=== PATIENT | male | born 1950 | race Caucasian/White ===

== ENCOUNTER → 2018-08-26 07:52 | Outpatient (CLI) | payer MEDICARE, OTHER, SELFPAY ==
[2018-08-26 08:56] LABS: Alanine Aminotransferase 30 IU/L (21-72); Albumin 4.4 g/dL (3.5-5.0); Albumin Globulin Ratio 1.2 (1.0-2.8); Alkaline Phosphatase 77 U/L (38-126); Aspartate Aminotransferase 28 IU/L (17-59); Bilirubin Total 0.8 mg/dL (0.2-1.3); Blood Urea Nitrogen 16 mg/dL (9-20); Carbon Dioxide 26 mmol/L (22-32); Chloride 105 mmol/L (98-107); Cholesterol 169 mg/dL (140-199); Estimated Glomerular Filt Rate > 60.0 mL/min (>60); Globulin 3.8 g/dL (1.7-4.1); Glucose 107 mg/dL (80-110); HDL Cholesterol 49 mg/dL (40-60); HEMOLYSIS < 15 (0-50); LDL Cholesterol Calculated 85 mg/dL (<100); Potassium 4.2 mmol/L (3.4-5.1); Sodium 142 mmol/L (137-145); Total Protein 8.2 g/dL (6.3-8.2); Triglycerides 177 mg/dL (35-150)
== END ==
PROVIDERS: Visit Provider Internal Medicine
DX: Z00.00 Encounter for general adult medical examination without abnormal findings (principal)
CPT/HCPCS: 80053; 80061

== ENCOUNTER → 2018-12-25 09:09 | Outpatient (CLI) | payer MEDICARE, OTHER, SELFPAY ==
--- NOTE | 2018-12-25 09:11 | DI.US.S_ITS ---
PROCEDURE: US ABD AORTA ANEURYSM SCREEN INDICATIONS: AAA screen in male former smoker TECHNIQUE: Real time scanning was performed of the aorta and iliac arteries, with image documentation. COMPARISON: None. FINDINGS: Aorta: Proximal aortic diameter measures 2.5 cm. Mid-aorta measures 1.9 cm. Distal aortic diameter is 1.6 cm. Iliac arteries: Right common iliac artery measures 1.1 cm. Left common iliac artery measures 1.1 cm. IMPRESSION: No aortic or iliac artery aneurysm. Dictated by: Arturo Schultz M.D. on 12/25/2018 at 10:05 Approved by: Arturo Schultz M.D. on 12/25/2018 at 10:06
== END ==
PROVIDERS: PCP Student in an Organized Health Care Education/Training Program; Visit Provider Student in an Organized Health Care Education/Training Program
DX: Z13.6 Encounter for screening for cardiovascular disorders (principal); Z87.891 Personal history of nicotine dependence
CPT/HCPCS: 76706

== ENCOUNTER → 2019-08-22 12:44 | Outpatient (CLI) | payer MEDICARE, OTHER, SELFPAY ==
[2019-08-22 13:36] LABS: BUN Creatinine Ratio 23.8 (6-22); Blood Urea Nitrogen 19 mg/dL (9-20); Carbon Dioxide 24 mmol/L (22-32); Chloride 104 mmol/L (98-107); Estimated Glomerular Filt Rate > 60.0 mL/min (>60); Glucose 133 mg/dL (80-110); HEMOLYSIS < 15 (0-50); Sodium 140 mmol/L (137-145)
== END ==
PROVIDERS: PCP Student in an Organized Health Care Education/Training Program; Visit Provider Student in an Organized Health Care Education/Training Program
DX: I10 Essential (primary) hypertension (principal)
CPT/HCPCS: 36415; 80048

== ENCOUNTER → 2019-11-07 16:25 | Outpatient (CLI) | payer MEDICARE, OTHER, SELFPAY ==
--- NOTE | 2019-11-07 16:27 | DI.RAD.S_ITS ---
PROCEDURE: XR CHEST 2V INDICATIONS: chronic cough, abnormal sounds L upper lung glover TECHNIQUE: 2 views of the chest were acquired. COMPARISON: None. FINDINGS: Surgical changes and devices: None. Lungs and pleura: No focal consolidation. There is a small nodular opacity projecting over the left lung base measuring up to approximately 1.2 cm. No pleural effusions or pneumothorax. Mediastinum: Mediastinal contours are normal. Heart size is normal. Bones and chest wall: No suspicious bony abnormalities. Soft tissues appear unremarkable. IMPRESSION: 1. No focal consolidation to suggest pneumonia. 2. Oval opacity projecting over left lung base may represent confluence of vascular and bony structures versus a pulmonary nodule. Consider a short term followup repeat study for further evaluation. Dictated by: Reinaldo Wagner M.D. on 11/07/2019 at 16:50 Approved by: Reinaldo Wagner M.D. on 11/07/2019 at 16:52
== END ==
PROVIDERS: Family Provider Student in an Organized Health Care Education/Training Program; PCP Student in an Organized Health Care Education/Training Program; Visit Provider Physician Assistant
DX: R05 Cough (principal)
CPT/HCPCS: 71046

== ENCOUNTER → 2019-11-11 15:43 | Outpatient (CLI) | payer MEDICARE, OTHER, SELFPAY ==
--- NOTE | 2019-11-11 15:46 | DI.RAD.S_ITS ---
PROCEDURE: XR CHEST 2V INDICATIONS: Re-evaluate ?pulmonary nodule in LLL TECHNIQUE: 2 views of the chest were acquired. COMPARISON: [facility], CR, XR CHEST 2V, 11/07/2019, 16:22. FINDINGS: Surgical changes and devices: None. Lungs and pleura: Lungs are clear. No pleural effusions or pneumothorax. Mediastinum: Mediastinal contours are normal. Heart size is normal. Bones and chest wall: No suspicious bony abnormalities. Soft tissues appear unremarkable. IMPRESSION: Normal for age, no nodules seen in the area of prior film concern at the left ventricular apex margin, abutting the diaphragm. The area now is well-visualized and appears normal. Dictated by: Arturo Schultz M.D. on 11/11/2019 at 16:20 Approved by: Arturo Schultz M.D. on 11/11/2019 at 16:21
== END ==
PROVIDERS: PCP Student in an Organized Health Care Education/Training Program; Visit Provider Student in an Organized Health Care Education/Training Program
DX: R91.1 Solitary pulmonary nodule (principal)
CPT/HCPCS: 71046

== ENCOUNTER → 2020-11-07 08:08 | Outpatient (CLI) | payer MEDICARE, OTHER, SELFPAY ==
[2020-11-07 10:10] LABS: Alanine Aminotransferase 30 IU/L (<50); Albumin 4.4 g/dL (3.5-5.0); Albumin Globulin Ratio 1.3 (1.0-2.8); Alkaline Phosphatase 83 U/L (38-126); Aspartate Aminotransferase 36 IU/L (17-59); BUN Creatinine Ratio 18.1 (6-22); Bilirubin Total 0.6 mg/dL (0.2-1.3); Blood Urea Nitrogen 15 mg/dL (9-20); Carbon Dioxide 27 mmol/L (22-32); Chloride 105 mmol/L (98-107); Cholesterol 176 mg/dL (140-199); Estimated Glomerular Filt Rate > 60.0 mL/min (>60); Globulin 3.5 g/dL (1.7-4.1); Glucose 107 mg/dL (80-110); HDL Cholesterol 59 mg/dL (40-60); HEMOLYSIS < 15 (0-50); LDL Cholesterol Calculated 97 mg/dL (<100); Potassium 4.3 mmol/L (3.4-5.1); Sodium 138 mmol/L (137-145); Total Protein 7.9 g/dL (6.3-8.2); Triglycerides 100 mg/dL (35-150)
[2020-11-11 15:27] LABS: Prostate Specific Antigen Scrn 1.12 ng/mL (0.1-4.0)
== END ==
PROVIDERS: PCP Student in an Organized Health Care Education/Training Program; Referring Provider Student in an Organized Health Care Education/Training Program; Visit Provider Nurse Practitioner
DX: E78.2 Mixed hyperlipidemia (principal); I10 Essential (primary) hypertension; Z12.5 Encounter for screening for malignant neoplasm of prostate
CPT/HCPCS: 36415; 80053; 80061; G0103

== ENCOUNTER → 2020-12-28 12:46 | Outpatient (CLI) | payer MEDICARE, OTHER, SELFPAY ==
[2020-12-28] MEDS: COVID-19 VACC #1, MRNA(MOD) 100 MCG/0.5 ML VIAL IM (12:51)
== END ==
PROVIDERS: PCP Student in an Organized Health Care Education/Training Program; Visit Provider Internal Medicine
DX: Z23 Encounter for immunization (principal)
CPT/HCPCS: 0011A; 91301

== ENCOUNTER → 2021-01-25 11:15 | Outpatient (CLI) | payer MEDICARE, OTHER, SELFPAY ==
[2021-01-25] MEDS: COVID-19 VACC #2, MRNA(MOD) 100 MCG/0.5 ML VIAL IM (11:22)
== END ==
PROVIDERS: PCP Student in an Organized Health Care Education/Training Program; Visit Provider Internal Medicine
DX: Z23 Encounter for immunization (principal)
CPT/HCPCS: 0012A; 91301

== ENCOUNTER 2021-05-10 14:30 | Outpatient (RCR) | payer MEDICARE, OTHER, SELFPAY ==
--- NOTE | 2021-03-01 16:03 | PT.OIE ---
Current Diagnoses Other chronic pain (03/01/21) Pain in left shoulder (03/01/21) Dorsalgia, unspecified (03/01/21) Past Medical History (Last Updated 08/18/18 @ 15:07 by Tory Sebastian) Asthma (2004) Chicken pox (1956) Chronic back pain (1979) Hayfever (2004) Hyperlipidemia Measles (1960) Mumps (1957) Past Surgical History (Last Updated 08/18/18 @ 15:07 by Tory Sebastian) Anesthesia No history of previous surgery (06/2015) Visit Care Team Role Provider Type Chito Benítez MD Attending Provider Physician Family Provider Primary Care Provider Referring Provider Specialty: Internal Medicine Address: [address] [place] [address], [address], [facility] Email: [email or web address] Physical Therapy Initial Evaluation PT-OP-A Visit Information Start: 02/28/21 12:52 Freq: Status: Active Protocol: Document 03/01/21 12:56 MB (Rec: 03/01/21 13:16 MB [id number]) Out-Patient Physical Therapy Visit Information Visit Information Visit Type Initial Evaluation Visit Start Time 12:56 Visit Stop Time 13:36 Total Visit Minutes 40 Visit Number 1 Evaluation Information Evaluation Date 03/01/21 PT-OP-B Current Condition Start: 02/28/21 12:52 Freq: Status: Active Protocol: Document 03/01/21 12:56 MB (Rec: 03/01/21 13:16 MB [id number]) Current Condition History of Current Condition Onset Date 2 weeks ago on chronic Current Complaints Low back pain and left shoulder pain History of Current Condition A couple of weeks ago, pt was hiking and slipped and fell on his back on the rocks and flipped and landed on his hands. The pain got bad that night and he took ibuprofen and it helped. 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 Pt reports pain in his right SI area and anterior right hip with walking. Pt reports left shoulder and hand pain. He does not rate pain. Pt reports a history of radiating thumb pain to his neck. Pt gets up to 5/10. Pt likes to do his stretching exercises about half an hour every morning. He starts on a ball. He does pect stretches and crunches on the ball. He does a bug core exercise on the floor with his head up. He does lumbar rotation with leg crossed over, ball squeeze with feet apart, bridging, Cobra, prone quad stretch, folded leaf/Child's Pose, cat/ cow, kneeling with arms out pushes, superman in kneeling, 30-40 sit ups, feet on wall relaxed pose and some other poses. He also likes to walk 2 -3 miles a day. Pt reports a long history of back pain since he was very young. He got injured when a back hoe swung and hit him in the low back. He was lifting a steel piece when it happened. Prior Treatments and Tests Pt saw another PT for years for back pain Treatment Goals Patient/Caregiver Goals To review his home program, keep his hip and shoulders lose, revise a program to keep his HEP 30 minutes or less, stretch calves and decrese pain PT-OP-C Subjective Start: 02/28/21 12:52 Freq: Status: Active Protocol: Document 03/01/21 12:56 MB (Rec: 03/01/21 13:44 MB [id number]) OP-PT Subjective Patient Comments Patient Comments See history of current condition Patient Reported Progress Improving Patient Questionnaires Oswestry Low Back Index Oswestry Score 9/50 Oswestry Impairment 1 to 19% Impaired (Score 1-19) Quick Dash- Upper Extremity Quick Dash UE Score 19 Quick Dash UE Impairment 1 to 19% Impaired (Score 1-19) PT-OP-J Posture/Palpation/Skin Start: 02/28/21 12:52 Freq: Status: Active Protocol: Document 03/01/21 12:56 MB (Rec: 03/01/21 16:02 MB [id number]) Posture Evaluation Comments Posture Comments Standing posture with shoes off: pt tends to keep feet wide apart, increased Yolande angle on the left and tip his head up into cervical extension. Decreased cervical lordosis, thoracic kyphosis and lumbar lordosis--his whole spine is pretty flat from the side. Right shoulder higher than the left and right iliac crest higher than the left. Pt presents with hypertrophy of left side thoracolumbar paraspinals. PT-OP-K Range of Motion Start: 02/28/21 12:52 Freq: Status: Active Protocol: Document 03/01/21 12:56 MB (Rec: 03/01/21 16:02 MB [id number]) Cervical Spine Range of Motion Cervical Spine Active Testing Position Standing Flexion 35 Extension 30 Rotation Left 35 Rotation Right 40 Shoulder Goniometric Range of Motion Shoulder ROM Limitations Comments Left shoulder flexion in standing is grossly 10 deg less than the right Hip Goniometric Range of Motion Hip ROM Limitations Comments Passive SLR in supine: right 50 deg, left 50 deg; B limited passive ER and IR, worse on the left PT-OP-M Strength Start: 02/28/21 12:52 Freq: Status: Active Protocol: Document 03/01/21 12:56 MB (Rec: 03/01/21 16:02 MB [id number]) Hip Strength Hip Manual Muscle Testing Left Flexion (L2) 4 Good Abduction 4 Good Right Flexion (L2) 4 Good Abduction 4 Good Knee Strength Knee Manual Muscle Testing Bilateral Flexion (S2) 5 Normal Extension (L3) 5 Normal Ankle/Foot Strength Ankle and Foot Manual Muscle Testing Left Dorsiflexion (L4) 5 Normal Right Dorsiflexion (L4) 5 Normal Toe Strength Toe Manual Muscle Testing Left Great Toe Flexion 3+ Fair+ Right Great Toe Flexion 4 Good PT-OP-T Assessment and Plan Start: 02/28/21 12:52 Freq: Status: Active Protocol: Document 03/01/21 12:56 MB (Rec: 03/01/21 16:02 MB [id number]) Physical Therapy Assessment Rehab Potential Rehabilitation Potential Fair Evaluation Complexity Number of Personal Factors/Comorbidities 1-2 Number of Body Systems Impaired 1-2 Clinical Presentation at Evaluation Evolving Impairments Other Impairments Personal factors include likely degenerative changes of spine and ongoing performance of tasks that provoke his pain. Body systems affected include musculoskeletal and neuromuscular. His clinical presentation of degenerative chagnes is evolving over time. Goals 2 Custodial Goal (LTG) Pt will perform progressive HEP with I including pelvic realignment, flexibility, core and LE strengthening and balance exercises to improve flexibility, posture and pain by 05/01/21. LTG Duration 8 weeks 1 Medical Staff Services Coordinator Goal (LTG) Pt will report an overall 50% improvement in left shoulder and back pain to improve overall quality of life by . 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 He presents with flat spine at all levels, paraspinal tension, pelvic obliquities, decreased ROM and strength. He will benefit from PT for HEP review and manual work. Physical Therapy Plan Frequency and Duration Frequency of Treatment 2x/wk as long as nee Duration of Treatment 8 weeks Plan of Care Start Date 03/01/21 Plan of Care End Date 05/01/21 Therapeutic Interventions Therapeutic Interventions Home Exercise Program,Manual Therapy,Neuromuscular Re- education,Patient/Caregiver Education,Self-Care/Home Management,Soft Tissue Mobilization,Taping, Therapeutic Exercises Modalities Cold Pack/Ice Massage,Electric Stimulation,Hot Packs, Ultrasound Next Visit Focus/Plan Next Note Type Treatment Note Next Visit Plan Review his current HEP exercises
--- NOTE | 2021-03-01 16:03 | PT.OPPOC ---
Physical, Occupational & Speech Therapy At [facility] Current Diagnoses Other chronic pain (03/01/21) Pain in left shoulder (03/01/21) Dorsalgia, unspecified (03/01/21) Visit Care Team Role Provider Type Chito Benítez MD Attending Provider Physician Family Provider Primary Care Provider Referring Provider Specialty: Internal Medicine Address: [address] [place] [address], [address], [facility] Email: [email or web address] Plan Of Care PT-OP-T Assessment and Plan Start: 02/28/21 12:52 Freq: Status: Active Protocol: Document 03/01/21 12:56 MB (Rec: 03/01/21 16:02 MB [id number]) Physical Therapy Assessment Rehab Potential Rehabilitation Potential Fair Evaluation Complexity Number of Personal Factors/Comorbidities 1-2 Number of Body Systems Impaired 1-2 Clinical Presentation at Evaluation Evolving Impairments Other Impairments Personal factors include likely degenerative changes of spine and ongoing performance of tasks that provoke his pain. Body systems affected include musculoskeletal and neuromuscular. His clinical presentation of degenerative chagnes is evolving over time. Goals 2 Longterm Goal (LTG) Pt will perform progressive HEP with I including pelvic realignment, flexibility, core and LE strengthening and balance exercises to improve flexibility, posture and pain by 05/01/21. LTG Duration 8 weeks 1 Framing Mill Operator Helper Goal (LTG) Pt will report an overall 50% improvement in left shoulder and back pain to improve overall quality of life by . 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 He presents with flat spine at all levels, paraspinal tension, pelvic obliquities, decreased ROM and strength. He will benefit from PT for HEP review and manual work. Physical Therapy Plan Frequency and Duration Frequency of Treatment 2x/wk as long as nee Duration of Treatment 8 weeks Plan of Care Start Date 03/01/21 Plan of Care End Date 05/01/21 Therapeutic Interventions Therapeutic Interventions Home Exercise Program,Manual Therapy,Neuromuscular Re- education,Patient/Caregiver Education,Self-Care/Home Management,Soft Tissue Mobilization,Taping, Therapeutic Exercises Modalities Cold Pack/Ice Massage,Electric Stimulation,Hot Packs, Ultrasound Next Visit Focus/Plan Next Note Type Treatment Note Next Visit Plan Review his current HEP exercises Plan of Care Dates Plan of Care Start Date 03/01/21 Plan of Care End Date 05/01/21 Electronically Signed by: Jaye Ricardo, PT 03/01/21 0339 Please Sign and Return: I have reviewed this Plan of Care and certify that the skilled therapy services above are required to meet the patient?s needs. Physician Signature Date Printed Name and Credentials Clinical Instructor Signature Printed Name and Credentials
--- NOTE | 2021-03-03 13:05 | PT.OTN ---
Current Diagnoses Other chronic pain (03/03/21) Pain in left shoulder (03/03/21) Dorsalgia, unspecified (03/03/21) Physical Therapy Treatment Note PT-OP-A Visit Information Start: 02/28/21 12:52 Freq: Status: Active Protocol: Document 03/03/21 12:16 MB (Rec: 03/03/21 13:05 MB [id number]) Out-Patient Physical Therapy Visit Information Visit Information Visit Type Treatment Note Visit Start Time 12:16 Visit Stop Time 13:00 Total Visit Minutes 44 Visit Number 2 PT-OP-B Current Condition Start: 02/28/21 12:52 Freq: Status: Active Protocol: Document 03/01/21 12:56 MB (Rec: 03/01/21 13:16 MB [id number]) Current Condition History of Current Condition Onset Date 2 weeks ago on chronic Current Complaints Low back pain and left shoulder pain History of Current Condition A couple of weeks ago, pt was hiking and slipped and fell on his back on the rocks and flipped and landed on his hands. The pain got bad that night and he took ibuprofen and it helped. 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 Pt reports pain in his right SI area and anterior right hip with walking. Pt reports left shoulder and hand pain. He does not rate pain. Pt reports a history of radiating thumb pain to his neck. Pt gets up to 5/10. Pt likes to do his stretching exercises about half an hour every morning. He starts on a ball. He does pect stretches and crunches on the ball. He does a bug core exercise on the floor with his head up. He does lumbar rotation with leg crossed over, ball squeeze with feet apart, bridging, Cobra, prone quad stretch, folded leaf/Child's Pose, cat/ cow, kneeling with arms out pushes, superman in kneeling, 30-40 sit ups, feet on wall relaxed pose and some other poses. He also likes to walk 2 -3 miles a day. Pt reports a long history of back pain since he was very young. He got injured when a back hoe swung and hit him in the low back. He was lifting a steel piece when it happened. Prior Treatments and Tests Pt saw another PT for years for back pain Treatment Goals Patient/Caregiver Goals To review his home program, keep his hip and shoulders lose, revise a program to keep his HEP 30 minutes or less, stretch calves and decrese pain PT-OP-C Subjective Start: 02/28/21 12:52 Freq: Status: Active Protocol: Document 03/03/21 12:16 MB (Rec: 03/03/21 13:05 MB [id number]) OP-PT Subjective Patient Comments Patient Comments Pt arrives to review his current HEP with PT PT-OP-J Posture/Palpation/Skin Start: 02/28/21 12:52 Freq: Status: Active Protocol: Document 03/01/21 12:56 MB (Rec: 03/01/21 16:02 MB [id number]) Posture Evaluation Comments Posture Comments Standing posture with shoes off: pt tends to keep feet wide apart, increased Yolande angle on the left and tip his head up into cervical extension. Decreased cervical lordosis, thoracic kyphosis and lumbar lordosis--his whole spine is pretty flat from the side. Right shoulder higher than the left and right iliac crest higher than the left. Pt presents with hypertrophy of left side thoracolumbar paraspinals. PT-OP-K Range of Motion Start: 02/28/21 12:52 Freq: Status: Active Protocol: Document 03/01/21 12:56 MB (Rec: 03/01/21 16:02 MB [id number]) Cervical Spine Range of Motion Cervical Spine Active Testing Position Standing Flexion 35 Extension 30 Rotation Left 35 Rotation Right 40 Shoulder Goniometric Range of Motion Shoulder ROM Limitations Comments Left shoulder flexion in standing is grossly 10 deg less than the right Hip Goniometric Range of Motion Hip ROM Limitations Comments Passive SLR in supine: right 50 deg, left 50 deg; B limited passive ER and IR, worse on the left PT-OP-M Strength Start: 02/28/21 12:52 Freq: Status: Active Protocol: Document 03/01/21 12:56 MB (Rec: 03/01/21 16:02 MB [id number]) Hip Strength Hip Manual Muscle Testing Left Flexion (L2) 4 Good Abduction 4 Good Right Flexion (L2) 4 Good Abduction 4 Good Knee Strength Knee Manual Muscle Testing Bilateral Flexion (S2) 5 Normal Extension (L3) 5 Normal Ankle/Foot Strength Ankle and Foot Manual Muscle Testing Left Dorsiflexion (L4) 5 Normal Right Dorsiflexion (L4) 5 Normal Toe Strength Toe Manual Muscle Testing Left Great Toe Flexion 3+ Fair+ Right Great Toe Flexion 4 Good PT-OP-Q Treatments Start: 02/28/21 12:52 Freq: Status: Active Protocol: Document 03/03/21 12:16 MB (Rec: 03/03/21 13:05 MB [id number]) Therapeutic Exercises Supine Exercises Pelvic realignment exercises Side bilateral Comments 5 reps all exercises, three sec hold Other Exercises See his HEP review under assessment Comments See assessment PT-OP-T Assessment and Plan Start: 02/28/21 12:52 Freq: Status: Active Protocol: Document 03/03/21 12:16 MB (Rec: 03/03/21 13:05 MB [id number]) Physical Therapy Assessment Rehab Potential Rehabilitation Potential Fair Evaluation Complexity Number of Personal Factors/Comorbidities 1-2 Number of Body Systems Impaired 1-2 Clinical Presentation at Evaluation Evolving Impairments Other Impairments Personal factors include likely degenerative changes of spine and ongoing performance of tasks that provoke his pain. Body systems affected include musculoskeletal and neuromuscular. His clinical presentation of degenerative chagnes is evolving over time. Goals 2 Oversize Load Pilot Escort Goal (LTG) Pt will perform progressive HEP with I including pelvic realignment, flexibility, core and LE strengthening and balance exercises to improve flexibility, posture and pain by 05/01/21. LTG Duration 8 weeks 1 Oversize Load Pilot Escort Goal (LTG) Pt will report an overall 50% improvement in left shoulder and back pain to improve overall quality of life by . LTG Duration 8 weeks Assessment Summary Assessment Pt demos his home routine and PT makes adjustments: therapy ball under legs lumbar rotation, shoulder flexion and extension, snow angels, raising cane up and down (ed to turn thumbs up), stop lifting head and shoulder up with cane (legs up and straight on ball), legs crossed over and pt performing LB rotation mob/stress)--pt not as interested in performing hip rotation stretch without spinal torsion ; bug abdominal exercise opposite arm to opposite leg, swap up pillow squeeze for pelvic realignment exercises; pt rolling to prone: prone with arms overhead, Cobra and ed to keep head neutral, B knee flexion and PT ed pt to perform one leg at a time and squeeze glute and cues to slow down; folded leaf and PT adds in stretching to the side; pt does another modified Cobra with feet off the floor, cat cow, sitting on heels and then shoulder horizontal abduction pressing back with arms straight and out; mini neck circles with neck relaxed, in quadriped, opposite arm and leg straight (cues for head neutral and tummy tight). Feel up on wall with knees bent-- palms up and then sit ups with hands behind head and PT re- ed to bicycle legs and keep head down, feet up on wall, hip rotator stretch and arms out to sides. Pt reports he had less soreness today after walking because he did not stretch before and so ed pt that he might decide to change his stretches to after walking. Physical Therapy Plan Frequency and Duration Frequency of Treatment 2x/wk as long as nee Duration of Treatment 8 weeks Plan of Care Start Date 03/01/21 Plan of Care End Date 05/01/21 Therapeutic Interventions Therapeutic Interventions Home Exercise Program,Manual Therapy,Neuromuscular Re- education,Patient/Caregiver Education,Self-Care/Home Management,Soft Tissue Mobilization,Taping, Therapeutic Exercises Modalities Cold Pack/Ice Massage,Electric Stimulation,Hot Packs, Ultrasound Next Visit Focus/Plan Next Note Type Treatment Note Next Visit Plan Core progression, racquet ball massage, thoracic mobility
--- NOTE | 2021-03-08 13:44 | PT.OTN ---
Current Diagnoses Other chronic pain (03/08/21) Pain in left shoulder (03/08/21) Dorsalgia, unspecified (03/08/21) Physical Therapy Treatment Note PT-OP-A Visit Information Start: 02/28/21 12:52 Freq: Status: Active Protocol: Document 03/08/21 13:00 MB (Rec: 03/08/21 13:43 MB [id number]) Out-Patient Physical Therapy Visit Information Visit Information Visit Type Treatment Note Visit Start Time 13:00 Visit Stop Time 13:41 Total Visit Minutes 41 Visit Number 3 PT-OP-B Current Condition Start: 02/28/21 12:52 Freq: Status: Active Protocol: Document 03/01/21 12:56 MB (Rec: 03/01/21 13:16 MB [id number]) Current Condition History of Current Condition Onset Date 2 weeks ago on chronic Current Complaints Low back pain and left shoulder pain History of Current Condition A couple of weeks ago, pt was hiking and slipped and fell on his back on the rocks and flipped and landed on his hands. The pain got bad that night and he took ibuprofen and it helped. 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 Pt reports pain in his right SI area and anterior right hip with walking. Pt reports left shoulder and hand pain. He does not rate pain. Pt reports a history of radiating thumb pain to his neck. Pt gets up to 5/10. Pt likes to do his stretching exercises about half an hour every morning. He starts on a ball. He does pect stretches and crunches on the ball. He does a bug core exercise on the floor with his head up. He does lumbar rotation with leg crossed over, ball squeeze with feet apart, bridging, Cobra, prone quad stretch, folded leaf/Child's Pose, cat/ cow, kneeling with arms out pushes, superman in kneeling, 30-40 sit ups, feet on wall relaxed pose and some other poses. He also likes to walk 2 -3 miles a day. Pt reports a long history of back pain since he was very young. He got injured when a back hoe swung and hit him in the low back. He was lifting a steel piece when it happened. Prior Treatments and Tests Pt saw another PT for years for back pain Treatment Goals Patient/Caregiver Goals To review his home program, keep his hip and shoulders lose, revise a program to keep his HEP 30 minutes or less, stretch calves and decrese pain PT-OP-C Subjective Start: 02/28/21 12:52 Freq: Status: Active Protocol: Document 03/08/21 13:00 MB (Rec: 03/08/21 13:43 MB [id number]) OP-PT Subjective Patient Comments Patient Comments Pt would like to go over his core exercises and pelvic realignment exercises. PT-OP-J Posture/Palpation/Skin Start: 02/28/21 12:52 Freq: Status: Active Protocol: Document 03/01/21 12:56 MB (Rec: 03/01/21 16:02 MB [id number]) Posture Evaluation Comments Posture Comments Standing posture with shoes off: pt tends to keep feet wide apart, increased Yolande angle on the left and tip his head up into cervical extension. Decreased cervical lordosis, thoracic kyphosis and lumbar lordosis--his whole spine is pretty flat from the side. Right shoulder higher than the left and right iliac crest higher than the left. Pt presents with hypertrophy of left side thoracolumbar paraspinals. PT-OP-K Range of Motion Start: 02/28/21 12:52 Freq: Status: Active Protocol: Document 03/01/21 12:56 MB (Rec: 03/01/21 16:02 MB [id number]) Cervical Spine Range of Motion Cervical Spine Active Testing Position Standing Flexion 35 Extension 30 Rotation Left 35 Rotation Right 40 Shoulder Goniometric Range of Motion Shoulder ROM Limitations Comments Left shoulder flexion in standing is grossly 10 deg less than the right Hip Goniometric Range of Motion Hip ROM Limitations Comments Passive SLR in supine: right 50 deg, left 50 deg; B limited passive ER and IR, worse on the left PT-OP-M Strength Start: 02/28/21 12:52 Freq: Status: Active Protocol: Document 03/01/21 12:56 MB (Rec: 03/01/21 16:02 MB [id number]) Hip Strength Hip Manual Muscle Testing Left Flexion (L2) 4 Good Abduction 4 Good Right Flexion (L2) 4 Good Abduction 4 Good Knee Strength Knee Manual Muscle Testing Bilateral Flexion (S2) 5 Normal Extension (L3) 5 Normal Ankle/Foot Strength Ankle and Foot Manual Muscle Testing Left Dorsiflexion (L4) 5 Normal Right Dorsiflexion (L4) 5 Normal Toe Strength Toe Manual Muscle Testing Left Great Toe Flexion 3+ Fair+ Right Great Toe Flexion 4 Good PT-OP-Q Treatments Start: 02/28/21 12:52 Freq: Status: Active Protocol: Document 03/08/21 13:00 MB (Rec: 03/08/21 13:43 MB [id number]) Therapeutic Exercises Supine Exercises Pool noodl exercises Supine Exercise Name Abd drawing in, shoulder flexion with cane, alternate arms, pect stretch Side bilateral Equipment Used Pool noodle Comments Cues and 10 reps, demo how to advance core exercises on the noodle Core progression Supine Exercise Name Abd drawing in, shoulder flexion with cane, HS, knee fall out, mini march Equipment Used Bar, pool noodle and yoga mat Comments 10 reps all with cues Pelvic realignment exercises Side bilateral Comments 5 reps all exercises, three sec hold Standing Exercises Racquet ball self-STM Standing Exercise Name Intrascapular muscles, glutes Side bilateral Comments Pt performs with cues PT-OP-T Assessment and Plan Start: 02/28/21 12:52 Freq: Status: Active Protocol: Document 03/08/21 13:00 MB (Rec: 03/08/21 13:43 MB [id number]) Physical Therapy Assessment Rehab Potential Rehabilitation Potential Fair Evaluation Complexity Number of Personal Factors/Comorbidities 1-2 Number of Body Systems Impaired 1-2 Clinical Presentation at Evaluation Evolving Impairments Other Impairments Personal factors include likely degenerative changes of spine and ongoing performance of tasks that provoke his pain. Body systems affected include musculoskeletal and neuromuscular. His clinical presentation of degenerative chagnes is evolving over time. Goals 2 [facility] Goal (LTG) Pt will perform progressive HEP with I including pelvic realignment, flexibility, core and LE strengthening and balance exercises to improve flexibility, posture and pain by 05/01/21. LTG Duration 8 weeks 1 [facility]ci Goal (LTG) Pt will report an overall 50% improvement in left shoulder and back pain to improve overall quality of life by . LTG Duration 8 weeks Assessment Summary Assessment Progressed core exercises today and answered PT questions about his exercises. Con't PT, pt may like to do more strengthening. Assess left shoulder mobility manually. Physical Therapy Plan Frequency and Duration Frequency of Treatment 2x/wk as long as nee Duration of Treatment 8 weeks Plan of Care Start Date 03/01/21 Plan of Care End Date 05/01/21 Therapeutic Interventions Therapeutic Interventions Home Exercise Program,Manual Therapy,Neuromuscular Re- education,Patient/Caregiver Education,Self-Care/Home Management,Soft Tissue Mobilization,Taping, Therapeutic Exercises Modalities Cold Pack/Ice Massage,Electric Stimulation,Hot Packs, Ultrasound Next Visit Focus/Plan Next Note Type Treatment Note Next Visit Plan Review any exercises as needed , answer questions, manual work left shoulder
--- NOTE | 2021-03-10 14:32 | PT.OTN ---
Current Diagnoses Other chronic pain (03/10/21) Pain in left shoulder (03/10/21) Dorsalgia, unspecified (03/10/21) Physical Therapy Treatment Note PT-OP-A Visit Information Start: 02/28/21 12:52 Freq: Status: Active Protocol: Document 03/10/21 13:45 SP (Rec: 03/10/21 14:56 SP [id number]) Out-Patient Physical Therapy Visit Information Visit Information Visit Type Treatment Note Visit Start Time 13:45 Visit Stop Time 14:32 Total Visit Minutes 47 Visit Number 4 Number of QUALITY CONTROL TECH RAW [employer]ERIALS Visits 1 Evaluation Information Evaluation Date 03/01/21 PT-OP-B Current Condition Start: 02/28/21 12:52 Freq: Status: Active Protocol: Document 03/01/21 12:56 MB (Rec: 03/01/21 13:16 MB [id number]) Current Condition History of Current Condition Onset Date 2 weeks ago on chronic Current Complaints Low back pain and left shoulder pain History of Current Condition A couple of weeks ago, pt was hiking and slipped and fell on his back on the rocks and flipped and landed on his hands. The pain got bad that night and he took ibuprofen and it helped. 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 Pt reports pain in his right SI area and anterior right hip with walking. Pt reports left shoulder and hand pain. He does not rate pain. Pt reports a history of radiating thumb pain to his neck. Pt gets up to 5/10. Pt likes to do his stretching exercises about half an hour every morning. He starts on a ball. He does pect stretches and crunches on the ball. He does a bug core exercise on the floor with his head up. He does lumbar rotation with leg crossed over, ball squeeze with feet apart, bridging, Cobra, prone quad stretch, folded leaf/Child's Pose, cat/ cow, kneeling with arms out pushes, superman in kneeling, 30-40 sit ups, feet on wall relaxed pose and some other poses. He also likes to walk 2 -3 miles a day. Pt reports a long history of back pain since he was very young. He got injured when a back hoe swung and hit him in the low back. He was lifting a steel piece when it happened. Prior Treatments and Tests Pt saw another PT for years for back pain Treatment Goals Patient/Caregiver Goals To review his home program, keep his hip and shoulders lose, revise a program to keep his HEP 30 minutes or less, stretch calves and decrese pain PT-OP-C Subjective Start: 02/28/21 12:52 Freq: Status: Active Protocol: Document 03/10/21 13:45 SP (Rec: 03/10/21 14:56 SP [id number]) OP-PT Subjective Patient Comments Patient Comments Back pain comes and goes, L shld arm still hurting when reaches out to side and upward . Is compliant with condensed HEP. Will be getting a pool noodle soon. PT-OP-J Posture/Palpation/Skin Start: 02/28/21 12:52 Freq: Status: Active Protocol: Document 03/01/21 12:56 MB (Rec: 03/01/21 16:02 MB [id number]) Posture Evaluation Comments Posture Comments Standing posture with shoes off: pt tends to keep feet wide apart, increased Yolande angle on the left and tip his head up into cervical extension. Decreased cervical lordosis, thoracic kyphosis and lumbar lordosis--his whole spine is pretty flat from the side. Right shoulder higher than the left and right iliac crest higher than the left. Pt presents with hypertrophy of left side thoracolumbar paraspinals. PT-OP-K Range of Motion Start: 02/28/21 12:52 Freq: Status: Active Protocol: Document 03/01/21 12:56 MB (Rec: 03/01/21 16:02 MB [id number]) Cervical Spine Range of Motion Cervical Spine Active Testing Position Standing Flexion 35 Extension 30 Rotation Left 35 Rotation Right 40 Shoulder Goniometric Range of Motion Shoulder ROM Limitations Comments Left shoulder flexion in standing is grossly 10 deg less than the right Hip Goniometric Range of Motion Hip ROM Limitations Comments Passive SLR in supine: right 50 deg, left 50 deg; B limited passive ER and IR, worse on the left PT-OP-M Strength Start: 02/28/21 12:52 Freq: Status: Active Protocol: Document 03/01/21 12:56 MB (Rec: 03/01/21 16:02 MB [id number]) Hip Strength Hip Manual Muscle Testing Left Flexion (L2) 4 Good Abduction 4 Good Right Flexion (L2) 4 Good Abduction 4 Good Knee Strength Knee Manual Muscle Testing Bilateral Flexion (S2) 5 Normal Extension (L3) 5 Normal Ankle/Foot Strength Ankle and Foot Manual Muscle Testing Left Dorsiflexion (L4) 5 Normal Right Dorsiflexion (L4) 5 Normal Toe Strength Toe Manual Muscle Testing Left Great Toe Flexion 3+ Fair+ Right Great Toe Flexion 4 Good PT-OP-Q Treatments Start: 02/28/21 12:52 Freq: Status: Active Protocol: Document 03/10/21 13:45 SP (Rec: 03/10/21 14:56 SP [id number]) Therapeutic Exercises Supine Exercises Pool noodl exercises Supine Exercise Name Abd drawing in, shoulder flexion with cane, alternate arms, pec stretch Side bilateral Resistance HEP review Equipment Used 1/2 foam roll Comments Cues and 10 reps, advanced core exercise Core progression Supine Exercise Name Abd drawing in, shoulder flexion with cane, HS, knee fall out, mini march Resistance HEP review Equipment Used 1/2 foam roll Comments 10 reps all with cues Pelvic realignment exercises Supine Exercise Name HEP review Side bilateral Comments 5 reps all exercises, three sec hold Sidelying Exercises shld abd Sidelying Exercise Name w/elbow bent abd to 90 deg- in PT only Side left Reps/Minutes x10 Comments tactile cues humeral and scap depression fac.- pain free range shld ER Sidelying Exercise Name PT only- assessed today Side left Resistance AROM Reps/Minutes x10 Comments pain free to 30 deg Standing Exercises theracane STMs Standing Exercise Name PT only Side left Reps/Minutes MWM scap/ head nod/ turn Comments good performance Racquet ball self-STM Standing Exercise Name Intrascapular muscles, glutes- HEP Side bilateral Comments good performance Manual Therapy Treatment Soft Tissue Mobilization STMs Body Location L UT, lev scap, pec, infraspinatus Mobilization Type Cross-Friction Intensity/Depth Moderate Body Position Sidelying Joint Mobilizations L shld PNF Joint L scapulothoracic Direction UR, DR, Retraction/ depression Grade II Body Position Sidelying Reps/Duration 1 min Comments PROM, eccentric against resisted retraction depression . PT-OP-T Assessment and Plan Start: 02/28/21 12:52 Freq: Status: Active Protocol: Document 03/10/21 13:45 SP (Rec: 03/10/21 14:56 SP [id number]) Physical Therapy Assessment Goals 2 Half-Way Goal (LTG) Pt will perform progressive HEP with I including pelvic realignment, flexibility, core and LE strengthening and balance exercises to improve flexibility, posture and pain by 05/01/21. 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 LTG Duration 8 weeks Progress Towards Goals Progress Towards Goals Progressing Toward Goals Progress Comments Pt stated compliant with pelvic realignment and core exercises at home. Initiated shld AROM ER, ABD pain free range approx 90 deg to perform in PT for now. Feels getting better each day. Assessment Summary Assessment Reviewed core exercises today. Assessed L GH and scapular ROM during tx with in painfree range. Good response to manual and self STMs performance end of tx. Pt responded well to tx, shld and back felt better leaving. Physical Therapy Plan Frequency and Duration Frequency of Treatment 2x/wk as long as nee Duration of Treatment 8 weeks Plan of Care Start Date 03/01/21 Plan of Care End Date 05/01/21 Therapeutic Interventions Therapeutic Interventions Home Exercise Program,Manual Therapy,Neuromuscular Re- education,Patient/Caregiver Education,Self-Care/Home Management,Soft Tissue Mobilization,Taping, Therapeutic Exercises Modalities Cold Pack/Ice Massage,Electric Stimulation,Hot Packs, Ultrasound Next Visit Focus/Plan Next Note Type Treatment Note Next Visit Plan Assess response to core HEP review and initiated L shld manual and self ball and thercane, AROM ER/ abd for in PT only for now. PT POC: Review any exercises as needed, answer questions, manual work left shoulder
--- NOTE | 2021-03-14 14:19 | PT.OTN ---
Current Diagnoses Other chronic pain (03/14/21) Pain in left shoulder (03/14/21) Dorsalgia, unspecified (03/14/21) Physical Therapy Treatment Note PT-OP-A Visit Information Start: 02/28/21 12:52 Freq: Status: Active Protocol: Document 03/14/21 13:45 MB (Rec: 03/14/21 14:18 MB [id number]) Out-Patient Physical Therapy Visit Information Visit Information Visit Type Treatment Note Visit Start Time 13:45 Visit Stop Time 14:15 Total Visit Minutes 30 Visit Number 5 PT-OP-B Current Condition Start: 02/28/21 12:52 Freq: Status: Active Protocol: Document 03/01/21 12:56 MB (Rec: 03/01/21 13:16 MB [id number]) Current Condition History of Current Condition Onset Date 2 weeks ago on chronic Current Complaints Low back pain and left shoulder pain History of Current Condition A couple of weeks ago, pt was hiking and slipped and fell on his back on the rocks and flipped and landed on his hands. The pain got bad that night and he took ibuprofen and it helped. 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 Pt reports pain in his right SI area and anterior right hip with walking. Pt reports left shoulder and hand pain. He does not rate pain. Pt reports a history of radiating thumb pain to his neck. Pt gets up to 5/10. Pt likes to do his stretching exercises about half an hour every morning. He starts on a ball. He does pect stretches and crunches on the ball. He does a bug core exercise on the floor with his head up. He does lumbar rotation with leg crossed over, ball squeeze with feet apart, bridging, Cobra, prone quad stretch, folded leaf/Child's Pose, cat/ cow, kneeling with arms out pushes, superman in kneeling, 30-40 sit ups, feet on wall relaxed pose and some other poses. He also likes to walk 2 -3 miles a day. Pt reports a long history of back pain since he was very young. He got injured when a back hoe swung and hit him in the low back. He was lifting a steel piece when it happened. Prior Treatments and Tests Pt saw another PT for years for back pain Treatment Goals Patient/Caregiver Goals To review his home program, keep his hip and shoulders lose, revise a program to keep his HEP 30 minutes or less, stretch calves and decrese pain PT-OP-C Subjective Start: 02/28/21 12:52 Freq: Status: Active Protocol: Document 03/14/21 13:45 MB (Rec: 03/14/21 14:18 MB [id number]) OP-PT Subjective Patient Comments Patient Comments Pt states that he thought his appointment was at 1345. He has not yet gotten his pool noodle and cancelled Saturday's appointment so he can get that and then work on exercises and then come back. PT-OP-J Posture/Palpation/Skin Start: 02/28/21 12:52 Freq: Status: Active Protocol: Document 03/01/21 12:56 MB (Rec: 03/01/21 16:02 MB [id number]) Posture Evaluation Comments Posture Comments Standing posture with shoes off: pt tends to keep feet wide apart, increased Yolande angle on the left and tip his head up into cervical extension. Decreased cervical lordosis, thoracic kyphosis and lumbar lordosis--his whole spine is pretty flat from the side. Right shoulder higher than the left and right iliac crest higher than the left. Pt presents with hypertrophy of left side thoracolumbar paraspinals. PT-OP-K Range of Motion Start: 02/28/21 12:52 Freq: Status: Active Protocol: Document 03/01/21 12:56 MB (Rec: 03/01/21 16:02 MB [id number]) Cervical Spine Range of Motion Cervical Spine Active Testing Position Standing Flexion 35 Extension 30 Rotation Left 35 Rotation Right 40 Shoulder Goniometric Range of Motion Shoulder ROM Limitations Comments Left shoulder flexion in standing is grossly 10 deg less than the right Hip Goniometric Range of Motion Hip ROM Limitations Comments Passive SLR in supine: right 50 deg, left 50 deg; B limited passive ER and IR, worse on the left PT-OP-M Strength Start: 02/28/21 12:52 Freq: Status: Active Protocol: Document 03/01/21 12:56 MB (Rec: 03/01/21 16:02 MB [id number]) Hip Strength Hip Manual Muscle Testing Left Flexion (L2) 4 Good Abduction 4 Good Right Flexion (L2) 4 Good Abduction 4 Good Knee Strength Knee Manual Muscle Testing Bilateral Flexion (S2) 5 Normal Extension (L3) 5 Normal Ankle/Foot Strength Ankle and Foot Manual Muscle Testing Left Dorsiflexion (L4) 5 Normal Right Dorsiflexion (L4) 5 Normal Toe Strength Toe Manual Muscle Testing Left Great Toe Flexion 3+ Fair+ Right Great Toe Flexion 4 Good PT-OP-Q Treatments Start: 02/28/21 12:52 Freq: Status: Active Protocol: Document 03/14/21 13:45 MB (Rec: 03/14/21 14:18 MB [id number]) Therapeutic Exercises Standing Exercises Racquet ball self-STM Standing Exercise Name MWM left infraspinatus today Comments Performed and added to HEP Manual Therapy Treatment Other Other Manual Treatments Left shoulder [place] Protocol and AP mobs with left shoulder in ER and pt tolerates well, presents with capsular tightness and improved range after treatment PT-OP-T Assessment and Plan Start: 02/28/21 12:52 Freq: Status: Active Protocol: Document 03/14/21 13:45 MB (Rec: 03/14/21 14:18 MB [id number]) Physical Therapy Assessment Rehab Potential Rehabilitation Potential Fair Evaluation Complexity Number of Personal Factors/Comorbidities 1-2 Number of Body Systems Impaired 1-2 Clinical Presentation at Evaluation Evolving Impairments Other Impairments Personal factors include likely degenerative changes of spine and ongoing performance of tasks that provoke his pain. Body systems affected include musculoskeletal and neuromuscular. His clinical presentation of degenerative chagnes is evolving over time. Goals 2 Longterm Goal (LTG) Pt will perform progressive HEP with I including pelvic realignment, flexibility, core and LE strengthening and balance exercises to improve flexibility, posture and pain by 05/01/21. 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 LTG Duration 8 weeks Assessment Summary Assessment [place] Protocol for left shoulder today and pt responds well and presents with capsular tightness. Initiated MWM left infraspinatus as well . Pt would like to skipped Fridays appointment and keep next Saturday's and then have a follow-up in a month from now . If [place] Protocol is helpful, he may schedule more. Physical Therapy Plan Frequency and Duration Frequency of Treatment 2x/wk as long as nee Duration of Treatment 8 weeks Plan of Care Start Date 03/01/21 Plan of Care End Date 05/01/21 Therapeutic Interventions Therapeutic Interventions Home Exercise Program,Manual Therapy,Neuromuscular Re- education,Patient/Caregiver Education,Self-Care/Home Management,Soft Tissue Mobilization,Taping, Therapeutic Exercises Modalities Cold Pack/Ice Massage,Electric Stimulation,Hot Packs, Ultrasound Next Visit Focus/Plan Next Note Type Treatment Note Next Visit Plan Review pool noodle exercises and consider [place] Protocol
--- NOTE | 2021-03-21 13:47 | PT.OTN ---
Current Diagnoses Other chronic pain (03/21/21) Pain in left shoulder (03/21/21) Dorsalgia, unspecified (03/21/21) Physical Therapy Treatment Note PT-OP-A Visit Information Start: 02/28/21 12:52 Freq: Status: Active Protocol: Document 03/21/21 13:02 MB (Rec: 03/21/21 13:46 MB [id number]) Out-Patient Physical Therapy Visit Information Visit Information Visit Type Treatment Note Visit Start Time 13:02 Visit Stop Time 13:45 Total Visit Minutes 43 Visit Number 6 PT-OP-B Current Condition Start: 02/28/21 12:52 Freq: Status: Active Protocol: Document 03/01/21 12:56 MB (Rec: 03/01/21 13:16 MB [id number]) Current Condition History of Current Condition Onset Date 2 weeks ago on chronic Current Complaints Low back pain and left shoulder pain History of Current Condition A couple of weeks ago, pt was hiking and slipped and fell on his back on the rocks and flipped and landed on his hands. The pain got bad that night and he took ibuprofen and it helped. 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 Pt reports pain in his right SI area and anterior right hip with walking. Pt reports left shoulder and hand pain. He does not rate pain. Pt reports a history of radiating thumb pain to his neck. Pt gets up to 5/10. Pt likes to do his stretching exercises about half an hour every morning. He starts on a ball. He does pect stretches and crunches on the ball. He does a bug core exercise on the floor with his head up. He does lumbar rotation with leg crossed over, ball squeeze with feet apart, bridging, Cobra, prone quad stretch, folded leaf/Child's Pose, cat/ cow, kneeling with arms out pushes, superman in kneeling, 30-40 sit ups, feet on wall relaxed pose and some other poses. He also likes to walk 2 -3 miles a day. Pt reports a long history of back pain since he was very young. He got injured when a back hoe swung and hit him in the low back. He was lifting a steel piece when it happened. Prior Treatments and Tests Pt saw another PT for years for back pain Treatment Goals Patient/Caregiver Goals To review his home program, keep his hip and shoulders lose, revise a program to keep his HEP 30 minutes or less, stretch calves and decrese pain PT-OP-C Subjective Start: 02/28/21 12:52 Freq: Status: Active Protocol: Document 03/21/21 13:02 MB (Rec: 03/21/21 13:46 MB [id number]) OP-PT Subjective Patient Comments Patient Comments I'm feeling pretty good. Pt states that he is doing his exercises, got the pool noodle and went for a long walk today and his hip didn't bother him. PT-OP-J Posture/Palpation/Skin Start: 02/28/21 12:52 Freq: Status: Active Protocol: Document 03/01/21 12:56 MB (Rec: 03/01/21 16:02 MB [id number]) Posture Evaluation Comments Posture Comments Standing posture with shoes off: pt tends to keep feet wide apart, increased Yolande angle on the left and tip his head up into cervical extension. Decreased cervical lordosis, thoracic kyphosis and lumbar lordosis--his whole spine is pretty flat from the side. Right shoulder higher than the left and right iliac crest higher than the left. Pt presents with hypertrophy of left side thoracolumbar paraspinals. PT-OP-K Range of Motion Start: 02/28/21 12:52 Freq: Status: Active Protocol: Document 03/01/21 12:56 MB (Rec: 03/01/21 16:02 MB [id number]) Cervical Spine Range of Motion Cervical Spine Active Testing Position Standing Flexion 35 Extension 30 Rotation Left 35 Rotation Right 40 Shoulder Goniometric Range of Motion Shoulder ROM Limitations Comments Left shoulder flexion in standing is grossly 10 deg less than the right Hip Goniometric Range of Motion Hip ROM Limitations Comments Passive SLR in supine: right 50 deg, left 50 deg; B limited passive ER and IR, worse on the left PT-OP-M Strength Start: 02/28/21 12:52 Freq: Status: Active Protocol: Document 03/01/21 12:56 MB (Rec: 03/01/21 16:02 MB [id number]) Hip Strength Hip Manual Muscle Testing Left Flexion (L2) 4 Good Abduction 4 Good Right Flexion (L2) 4 Good Abduction 4 Good Knee Strength Knee Manual Muscle Testing Bilateral Flexion (S2) 5 Normal Extension (L3) 5 Normal Ankle/Foot Strength Ankle and Foot Manual Muscle Testing Left Dorsiflexion (L4) 5 Normal Right Dorsiflexion (L4) 5 Normal Toe Strength Toe Manual Muscle Testing Left Great Toe Flexion 3+ Fair+ Right Great Toe Flexion 4 Good PT-OP-Q Treatments Start: 02/28/21 12:52 Freq: Status: Active Protocol: Document 03/21/21 13:02 MB (Rec: 03/21/21 13:46 MB [id number]) Therapeutic Exercises Supine Exercises Pool noodl exercises Side bilateral Comments Reviewed pect stretch, shoulder flexion, core progression Standing Exercises Racquet ball self-STM Standing Exercise Name Intrascapular muscles and infraspinatus MWM L Comments Provided handout today Manual Therapy Treatment Other Other Manual Treatments Left shoulder [place] Protocol, left first rib isometric, grade II sternocostal mobs AP, B upper traps STM and positional release PT-OP-T Assessment and Plan Start: 02/28/21 12:52 Freq: Status: Active Protocol: Document 03/21/21 13:02 MB (Rec: 03/21/21 13:46 MB [id number]) Physical Therapy Assessment Rehab Potential Rehabilitation Potential Fair Evaluation Complexity Number of Personal Factors/Comorbidities 1-2 Number of Body Systems Impaired 1-2 Clinical Presentation at Evaluation Evolving Impairments Other Impairments Personal factors include likely degenerative changes of spine and ongoing performance of tasks that provoke his pain. Body systems affected include musculoskeletal and neuromuscular. His clinical presentation of degenerative chagnes is evolving over time. Goals 2 Card Puncher Goal (LTG) Pt will perform progressive HEP with I including pelvic realignment, flexibility, core and LE strengthening and balance exercises to improve flexibility, posture and pain by 05/01/21. LTG Duration 8 weeks 1 Card Puncher Goal (LTG) Pt will report an overall 50% improvement in left shoulder and back pain to improve overall quality of life by . LTG Duration 8 weeks Assessment Summary Assessment Pt responds well again to shoulder mobs and so will monitor if he wants to con't with therapy. He wants to review HEP exercises and then check back in. He would benefit from more manual work on his shoulder and PT communicates that he should make more appointments sooner rather than later. Physical Therapy Plan Frequency and Duration Frequency of Treatment 2x/wk as long as nee Duration of Treatment 8 weeks Plan of Care Start Date 03/01/21 Plan of Care End Date 05/01/21 Therapeutic Interventions Therapeutic Interventions Home Exercise Program,Manual Therapy,Neuromuscular Re- education,Patient/Caregiver Education,Self-Care/Home Management,Soft Tissue Mobilization,Taping, Therapeutic Exercises Modalities Cold Pack/Ice Massage,Electric Stimulation,Hot Packs, Ultrasound Next Visit Focus/Plan Next Note Type Treatment Note Next Visit Plan Review pool noodle exercises and consider [place] Protocol
--- NOTE | 2021-04-12 13:58 | PT.OTN ---
Current Diagnoses Other chronic pain (04/12/21) Pain in left shoulder (04/12/21) Dorsalgia, unspecified (04/12/21) Physical Therapy Treatment Note PT-OP-A Visit Information Start: 02/28/21 12:52 Freq: Status: Active Protocol: Document 04/12/21 13:00 MB (Rec: 04/12/21 13:49 MB [id number]) Out-Patient Physical Therapy Visit Information Visit Information Visit Type Treatment Note Visit Start Time 13:00 Visit Stop Time 13:45 Total Visit Minutes 45 Visit Number 7 PT-OP-B Current Condition Start: 02/28/21 12:52 Freq: Status: Active Protocol: Document 03/01/21 12:56 MB (Rec: 03/01/21 13:16 MB [id number]) Current Condition History of Current Condition Onset Date 2 weeks ago on chronic Current Complaints Low back pain and left shoulder pain History of Current Condition A couple of weeks ago, pt was hiking and slipped and fell on his back on the rocks and flipped and landed on his hands. The pain got bad that night and he took ibuprofen and it helped. 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 Pt reports pain in his right SI area and anterior right hip with walking. Pt reports left shoulder and hand pain. He does not rate pain. Pt reports a history of radiating thumb pain to his neck. Pt gets up to 5/10. Pt likes to do his stretching exercises about half an hour every morning. He starts on a ball. He does pect stretches and crunches on the ball. He does a bug core exercise on the floor with his head up. He does lumbar rotation with leg crossed over, ball squeeze with feet apart, bridging, Cobra, prone quad stretch, folded leaf/Child's Pose, cat/ cow, kneeling with arms out pushes, superman in kneeling, 30-40 sit ups, feet on wall relaxed pose and some other poses. He also likes to walk 2 -3 miles a day. Pt reports a long history of back pain since he was very young. He got injured when a back hoe swung and hit him in the low back. He was lifting a steel piece when it happened. Prior Treatments and Tests Pt saw another PT for years for back pain Treatment Goals Patient/Caregiver Goals To review his home program, keep his hip and shoulders lose, revise a program to keep his HEP 30 minutes or less, stretch calves and decrese pain PT-OP-C Subjective Start: 02/28/21 12:52 Freq: Status: Active Protocol: Document 04/12/21 13:00 MB (Rec: 04/12/21 13:49 MB [id number]) OP-PT Subjective Patient Comments Patient Comments I hurt my back again. I was putting a sail on my mast and playing pickle ball. He has been taking medication. PT-OP-J Posture/Palpation/Skin Start: 02/28/21 12:52 Freq: Status: Active Protocol: Document 03/01/21 12:56 MB (Rec: 03/01/21 16:02 MB [id number]) Posture Evaluation Comments Posture Comments Standing posture with shoes off: pt tends to keep feet wide apart, increased Yolande angle on the left and tip his head up into cervical extension. Decreased cervical lordosis, thoracic kyphosis and lumbar lordosis--his whole spine is pretty flat from the side. Right shoulder higher than the left and right iliac crest higher than the left. Pt presents with hypertrophy of left side thoracolumbar paraspinals. PT-OP-K Range of Motion Start: 02/28/21 12:52 Freq: Status: Active Protocol: Document 03/01/21 12:56 MB (Rec: 03/01/21 16:02 MB [id number]) Cervical Spine Range of Motion Cervical Spine Active Testing Position Standing Flexion 35 Extension 30 Rotation Left 35 Rotation Right 40 Shoulder Goniometric Range of Motion Shoulder ROM Limitations Comments Left shoulder flexion in standing is grossly 10 deg less than the right Hip Goniometric Range of Motion Hip ROM Limitations Comments Passive SLR in supine: right 50 deg, left 50 deg; B limited passive ER and IR, worse on the left PT-OP-M Strength Start: 02/28/21 12:52 Freq: Status: Active Protocol: Document 03/01/21 12:56 MB (Rec: 03/01/21 16:02 MB [id number]) Hip Strength Hip Manual Muscle Testing Left Flexion (L2) 4 Good Abduction 4 Good Right Flexion (L2) 4 Good Abduction 4 Good Knee Strength Knee Manual Muscle Testing Bilateral Flexion (S2) 5 Normal Extension (L3) 5 Normal Ankle/Foot Strength Ankle and Foot Manual Muscle Testing Left Dorsiflexion (L4) 5 Normal Right Dorsiflexion (L4) 5 Normal Toe Strength Toe Manual Muscle Testing Left Great Toe Flexion 3+ Fair+ Right Great Toe Flexion 4 Good PT-OP-Q Treatments Start: 02/28/21 12:52 Freq: Status: Active Protocol: Document 04/12/21 13:00 MB (Rec: 04/12/21 13:58 MB [id number]) Manual Therapy Treatment Other Other Manual Treatments Pt prone: PA thoracic mobs grade III-IV, left scapular mobs, left shoulder ER mobs PA at capsule, STM B thoracolumbar paraspinals and QL, hip rotators. [place] Protocol left shoulder. PT-OP-T Assessment and Plan Start: 02/28/21 12:52 Freq: Status: Active Protocol: Document 04/12/21 13:00 MB (Rec: 04/12/21 13:49 MB [id number]) Physical Therapy Assessment Rehab Potential Rehabilitation Potential Fair Evaluation Complexity Number of Personal Factors/Comorbidities 1-2 Number of Body Systems Impaired 1-2 Clinical Presentation at Evaluation Evolving Impairments Other Impairments Personal factors include likely degenerative changes of spine and ongoing performance of tasks that provoke his pain. Body systems affected include musculoskeletal and neuromuscular. His clinical presentation of degenerative chagnes is evolving over time. Goals 2 Hot Mill Shearer Goal (LTG) Pt will perform progressive HEP with I including pelvic realignment, flexibility, core and LE strengthening and balance exercises to improve flexibility, posture and pain by 05/31/21. 04/12/21: Pt is performing exercises when his pain does not prevent it. LTG Duration 6 weeks 1 Hot Mill Shearer Goal (LTG) Pt will report an overall 50% improvement in left shoulder and back pain to improve overall quality of life by . 04/12/21: Pt states that his back pain is back and that his left shoulder if feeling better today. LTG Duration 6 weeks Assessment Summary Assessment Pt states that manual therapy for his arm was helpful and so he would like to con't PT. There is only one available opening at this time this month and so pt with attempt to get this appointment. His back is bothering him after rigging and foiling his sailboat and playing pickle ball and he might like to work on this some more as well. Manual work today on left shoulder improves passive capsular movement and active ROM. He will benefit from ongoing PT to improve range, pain and to address any further exercise questions. Physical Therapy Plan Frequency and Duration Frequency of Treatment 1x/Week Duration of Treatment 6 weeks Plan of Care Start Date 04/12/21 Plan of Care End Date 05/31/21 Therapeutic Interventions Therapeutic Interventions Canalithic Repositioning,Home Exercise Program,Joint Mobilizations,Manual Therapy, Neuromuscular Re-education, Patient/Caregiver Education, Self-Care/Home Management,Soft Tissue Mobilization,Taping, Therapeutic Exercises Modalities Cold Pack/Ice Massage,Electric Stimulation,Hot Packs, Ultrasound Next Visit Focus/Plan Next Note Type Treatment Note Next Visit Plan Review pool noodle exercises and consider [place] Protocol, ongoing manual work
--- NOTE | 2021-04-12 13:59 | PT.OPPOC ---
Physical, Occupational & Speech Therapy At [facility] Current Diagnoses Other chronic pain (04/12/21) Pain in left shoulder (04/12/21) Dorsalgia, unspecified (04/12/21) Visit Care Team Role Provider Type Chito Benítez MD Attending Provider Physician Family Provider Primary Care Provider Referring Provider Specialty: Internal Medicine Address: [address] [place] [address], [address], [facility] Email: [email or web address] Plan Of Care PT-OP-T Assessment and Plan Start: 02/28/21 12:52 Freq: Status: Active Protocol: Document 04/12/21 13:00 MB (Rec: 04/12/21 13:49 MB [id number]) Physical Therapy Assessment Rehab Potential Rehabilitation Potential Fair Evaluation Complexity Number of Personal Factors/Comorbidities 1-2 Number of Body Systems Impaired 1-2 Clinical Presentation at Evaluation Evolving Impairments Other Impairments Personal factors include likely degenerative changes of spine and ongoing performance of tasks that provoke his pain. Body systems affected include musculoskeletal and neuromuscular. His clinical presentation of degenerative chagnes is evolving over time. Goals 2 Snf Goal (LTG) Pt will perform progressive HEP with I including pelvic realignment, flexibility, core and LE strengthening and balance exercises to improve flexibility, posture and pain by 05/31/21. 04/12/21: Pt is performing exercises when his pain does not prevent it. LTG Duration 6 weeks 1 Real Estate Marketing Coordinator Goal (LTG) Pt will report an overall 50% improvement in left shoulder and back pain to improve overall quality of life by . 04/12/21: Pt states that his back pain is back and that his left shoulder if feeling better today. LTG Duration 6 weeks Assessment Summary Assessment Pt states that manual therapy for his arm was helpful and so he would like to con't PT. There is only one available opening at this time this month and so pt with attempt to get this appointment. His back is bothering him after rigging and foiling his sailboat and playing pickle ball and he might like to work on this some more as well. Manual work today on left shoulder improves passive capsular movement and active ROM. He will benefit from ongoing PT to improve range, pain and to address any further exercise questions. Physical Therapy Plan Frequency and Duration Frequency of Treatment 1x/Week Duration of Treatment 6 weeks Plan of Care Start Date 04/12/21 Plan of Care End Date 05/31/21 Therapeutic Interventions Therapeutic Interventions Canalithic Repositioning,Home Exercise Program,Joint Mobilizations,Manual Therapy, Neuromuscular Re-education, Patient/Caregiver Education, Self-Care/Home Management,Soft Tissue Mobilization,Taping, Therapeutic Exercises Modalities Cold Pack/Ice Massage,Electric Stimulation,Hot Packs, Ultrasound Next Visit Focus/Plan Next Note Type Treatment Note Next Visit Plan Review pool noodle exercises and consider [place] Protocol, ongoing manual work Plan of Care Dates Plan of Care Start Date 04/12/21 Plan of Care End Date 05/31/21 Electronically Signed by: Jaye Ricardo, PT 04/12/21 [id number] Please Sign and Return: I have reviewed this Plan of Care and certify that the skilled therapy services above are required to meet the patient?s needs. Physician Signature Date Printed Name and Credentials Clinical Instructor Signature Printed Name and Credentials
--- NOTE | 2021-04-25 11:09 | PT.OTN ---
Current Diagnoses Other chronic pain (04/25/21) Pain in left shoulder (04/25/21) Dorsalgia, unspecified (04/25/21) Physical Therapy Treatment Note PT-OP-A Visit Information Start: 02/28/21 12:52 Freq: Status: Active Protocol: Document 04/25/21 10:30 MB (Rec: 04/25/21 11:09 MB [id number]) Out-Patient Physical Therapy Visit Information Visit Information Visit Type Treatment Note Visit Start Time 10:30 Visit Stop Time 11:08 Total Visit Minutes 38 Visit Number 8 PT-OP-B Current Condition Start: 02/28/21 12:52 Freq: Status: Active Protocol: Document 03/01/21 12:56 MB (Rec: 03/01/21 13:16 MB [id number]) Current Condition History of Current Condition Onset Date 2 weeks ago on chronic Current Complaints Low back pain and left shoulder pain History of Current Condition A couple of weeks ago, pt was hiking and slipped and fell on his back on the rocks and flipped and landed on his hands. The pain got bad that night and he took ibuprofen and it helped. 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 Pt reports pain in his right SI area and anterior right hip with walking. Pt reports left shoulder and hand pain. He does not rate pain. Pt reports a history of radiating thumb pain to his neck. Pt gets up to 5/10. Pt likes to do his stretching exercises about half an hour every morning. He starts on a ball. He does pect stretches and crunches on the ball. He does a bug core exercise on the floor with his head up. He does lumbar rotation with leg crossed over, ball squeeze with feet apart, bridging, Cobra, prone quad stretch, folded leaf/Child's Pose, cat/ cow, kneeling with arms out pushes, superman in kneeling, 30-40 sit ups, feet on wall relaxed pose and some other poses. He also likes to walk 2 -3 miles a day. Pt reports a long history of back pain since he was very young. He got injured when a back hoe swung and hit him in the low back. He was lifting a steel piece when it happened. Prior Treatments and Tests Pt saw another PT for years for back pain Treatment Goals Patient/Caregiver Goals To review his home program, keep his hip and shoulders lose, revise a program to keep his HEP 30 minutes or less, stretch calves and decrese pain PT-OP-C Subjective Start: 02/28/21 12:52 Freq: Status: Active Protocol: Document 04/25/21 10:30 MB (Rec: 04/25/21 11:09 MB [id number]) OP-PT Subjective Patient Comments Patient Comments Pt states that his left shoulder is doing better with the manual work with PT and he is impressed. He would like to keep working on it. PT-OP-J Posture/Palpation/Skin Start: 02/28/21 12:52 Freq: Status: Active Protocol: Document 03/01/21 12:56 MB (Rec: 03/01/21 16:02 MB [id number]) Posture Evaluation Comments Posture Comments Standing posture with shoes off: pt tends to keep feet wide apart, increased Yolande angle on the left and tip his head up into cervical extension. Decreased cervical lordosis, thoracic kyphosis and lumbar lordosis--his whole spine is pretty flat from the side. Right shoulder higher than the left and right iliac crest higher than the left. Pt presents with hypertrophy of left side thoracolumbar paraspinals. PT-OP-K Range of Motion Start: 02/28/21 12:52 Freq: Status: Active Protocol: Document 03/01/21 12:56 MB (Rec: 03/01/21 16:02 MB [id number]) Cervical Spine Range of Motion Cervical Spine Active Testing Position Standing Flexion 35 Extension 30 Rotation Left 35 Rotation Right 40 Shoulder Goniometric Range of Motion Shoulder ROM Limitations Comments Left shoulder flexion in standing is grossly 10 deg less than the right Hip Goniometric Range of Motion Hip ROM Limitations Comments Passive SLR in supine: right 50 deg, left 50 deg; B limited passive ER and IR, worse on the left PT-OP-M Strength Start: 02/28/21 12:52 Freq: Status: Active Protocol: Document 03/01/21 12:56 MB (Rec: 03/01/21 16:02 MB [id number]) Hip Strength Hip Manual Muscle Testing Left Flexion (L2) 4 Good Abduction 4 Good Right Flexion (L2) 4 Good Abduction 4 Good Knee Strength Knee Manual Muscle Testing Bilateral Flexion (S2) 5 Normal Extension (L3) 5 Normal Ankle/Foot Strength Ankle and Foot Manual Muscle Testing Left Dorsiflexion (L4) 5 Normal Right Dorsiflexion (L4) 5 Normal Toe Strength Toe Manual Muscle Testing Left Great Toe Flexion 3+ Fair+ Right Great Toe Flexion 4 Good PT-OP-Q Treatments Start: 02/28/21 12:52 Freq: Status: Active Protocol: Document 04/25/21 10:30 MB (Rec: 04/25/21 11:09 MB [id number]) Manual Therapy Treatment Other Other Manual Treatments Left shoulder [place] Protocol, PA mobs at joint line with pt prone and left shoulder in IR and ER, MWM left infraspinatus with PT performing TrP pressure and pt performing active range of motion, rib mobs left in side lying, grade III. Pt supine: AP mobs with left shoulder in ER. Left pect release. PT-OP-T Assessment and Plan Start: 02/28/21 12:52 Freq: Status: Active Protocol: Document 04/25/21 10:30 MB (Rec: 04/25/21 11:09 MB [id number]) Physical Therapy Assessment Rehab Potential Rehabilitation Potential Fair Evaluation Complexity Number of Personal Factors/Comorbidities 1-2 Number of Body Systems Impaired 1-2 Clinical Presentation at Evaluation Evolving Impairments Other Impairments Personal factors include likely degenerative changes of spine and ongoing performance of tasks that provoke his pain. Body systems affected include musculoskeletal and neuromuscular. His clinical presentation of degenerative chagnes is evolving over time. Goals 2 Cutter Banana Room Goal (LTG) Pt will perform progressive HEP with I including pelvic realignment, flexibility, core and LE strengthening and balance exercises to improve flexibility, posture and pain by 05/31/21. 04/12/21: Pt is performing exercises when his pain does not prevent it. LTG Duration 6 weeks 1 Senior Living Goal (LTG) Pt will report an overall 50% improvement in left shoulder and back pain to improve overall quality of life by . 04/12/21: Pt states that his back pain is back and that his left shoulder if feeling better today. LTG Duration 6 weeks Assessment Summary Assessment Pt responds well to manual PT for his left shoulder. Con't work, he is exercising at home . Consider more work on LB as needed. Physical Therapy Plan Frequency and Duration Frequency of Treatment 1x/Week Duration of Treatment 6 weeks Plan of Care Start Date 04/12/21 Plan of Care End Date 05/31/21 Therapeutic Interventions Therapeutic Interventions Canalithic Repositioning,Home Exercise Program,Joint Mobilizations,Manual Therapy, Neuromuscular Re-education, Patient/Caregiver Education, Self-Care/Home Management,Soft Tissue Mobilization,Taping, Therapeutic Exercises Modalities Cold Pack/Ice Massage,Electric Stimulation,Hot Packs, Ultrasound Next Visit Focus/Plan Next Note Type Treatment Note Next Visit Plan [place] Protocol, ongoing manual work
--- NOTE | 2021-05-10 15:29 | PT.OTN ---
Current Diagnoses Other chronic pain (05/10/21) Pain in left shoulder (05/10/21) Dorsalgia, unspecified (05/10/21) Physical Therapy Treatment Note PT-OP-A Visit Information Start: 02/28/21 12:52 Freq: Status: Active Protocol: Document 05/10/21 14:30 MB (Rec: 05/10/21 15:07 MB [id number]) Out-Patient Physical Therapy Visit Information Visit Information Visit Type Treatment Note Visit Start Time 14:30 Visit Stop Time 15:08 Total Visit Minutes 38 Visit Number 9 PT-OP-B Current Condition Start: 02/28/21 12:52 Freq: Status: Active Protocol: Document 03/01/21 12:56 MB (Rec: 03/01/21 13:16 MB [id number]) Current Condition History of Current Condition Onset Date 2 weeks ago on chronic Current Complaints Low back pain and left shoulder pain History of Current Condition A couple of weeks ago, pt was hiking and slipped and fell on his back on the rocks and flipped and landed on his hands. The pain got bad that night and he took ibuprofen and it helped. 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 Pt reports pain in his right SI area and anterior right hip with walking. Pt reports left shoulder and hand pain. He does not rate pain. Pt reports a history of radiating thumb pain to his neck. Pt gets up to 5/10. Pt likes to do his stretching exercises about half an hour every morning. He starts on a ball. He does pect stretches and crunches on the ball. He does a bug core exercise on the floor with his head up. He does lumbar rotation with leg crossed over, ball squeeze with feet apart, bridging, Cobra, prone quad stretch, folded leaf/Child's Pose, cat/ cow, kneeling with arms out pushes, superman in kneeling, 30-40 sit ups, feet on wall relaxed pose and some other poses. He also likes to walk 2 -3 miles a day. Pt reports a long history of back pain since he was very young. He got injured when a back hoe swung and hit him in the low back. He was lifting a steel piece when it happened. Prior Treatments and Tests Pt saw another PT for years for back pain Treatment Goals Patient/Caregiver Goals To review his home program, keep his hip and shoulders lose, revise a program to keep his HEP 30 minutes or less, stretch calves and decrese pain PT-OP-C Subjective Start: 02/28/21 12:52 Freq: Status: Active Protocol: Document 05/10/21 14:30 MB (Rec: 05/10/21 15:07 MB [id number]) OP-PT Subjective Patient Comments Patient Comments Pt states that he thinks he is doing well and is ready to d/ c. PT-OP-J Posture/Palpation/Skin Start: 02/28/21 12:52 Freq: Status: Active Protocol: Document 03/01/21 12:56 MB (Rec: 03/01/21 16:02 MB [id number]) Posture Evaluation Comments Posture Comments Standing posture with shoes off: pt tends to keep feet wide apart, increased Yolande angle on the left and tip his head up into cervical extension. Decreased cervical lordosis, thoracic kyphosis and lumbar lordosis--his whole spine is pretty flat from the side. Right shoulder higher than the left and right iliac crest higher than the left. Pt presents with hypertrophy of left side thoracolumbar paraspinals. PT-OP-K Range of Motion Start: 02/28/21 12:52 Freq: Status: Active Protocol: Document 03/01/21 12:56 MB (Rec: 03/01/21 16:02 MB [id number]) Cervical Spine Range of Motion Cervical Spine Active Testing Position Standing Flexion 35 Extension 30 Rotation Left 35 Rotation Right 40 Shoulder Goniometric Range of Motion Shoulder ROM Limitations Comments Left shoulder flexion in standing is grossly 10 deg less than the right Hip Goniometric Range of Motion Hip ROM Limitations Comments Passive SLR in supine: right 50 deg, left 50 deg; B limited passive ER and IR, worse on the left PT-OP-M Strength Start: 02/28/21 12:52 Freq: Status: Active Protocol: Document 03/01/21 12:56 MB (Rec: 03/01/21 16:02 MB [id number]) Hip Strength Hip Manual Muscle Testing Left Flexion (L2) 4 Good Abduction 4 Good Right Flexion (L2) 4 Good Abduction 4 Good Knee Strength Knee Manual Muscle Testing Bilateral Flexion (S2) 5 Normal Extension (L3) 5 Normal Ankle/Foot Strength Ankle and Foot Manual Muscle Testing Left Dorsiflexion (L4) 5 Normal Right Dorsiflexion (L4) 5 Normal Toe Strength Toe Manual Muscle Testing Left Great Toe Flexion 3+ Fair+ Right Great Toe Flexion 4 Good PT-OP-Q Treatments Start: 02/28/21 12:52 Freq: Status: Active Protocol: Document 05/10/21 14:30 MB (Rec: 05/10/21 15:28 MB [id number]) Therapeutic Exercises Standing Exercises Racquet ball self-STM Standing Exercise Name Infraspinatus MWM and intrascapular STM Side left Other Exercises Verbally reviewed all exercises Comments Performed this today in preparation for d/c Manual Therapy Treatment Other Other Manual Treatments Left shoulder [place] Protocol, PA mobs at joint line with pt prone and left shoulder in IR and ER, AP mobs at joint line with pt supine PT-OP-T Assessment and Plan Start: 02/28/21 12:52 Freq: Status: Active Protocol: Document 05/10/21 14:30 MB (Rec: 05/10/21 15:07 MB [id number]) Physical Therapy Assessment Rehab Potential Rehabilitation Potential Fair Evaluation Complexity Number of Personal Factors/Comorbidities 1-2 Number of Body Systems Impaired 1-2 Clinical Presentation at Evaluation Evolving Impairments Other Impairments Personal factors include likely degenerative changes of spine and ongoing performance of tasks that provoke his pain. Body systems affected include musculoskeletal and neuromuscular. His clinical presentation of degenerative chagnes is evolving over time. Goals 2 Web [employer] Analyst Goal (LTG) Pt will perform progressive HEP with I including pelvic realignment, flexibility, core and LE strengthening and balance exercises to improve flexibility, posture and pain by 05/31/21. 05/10/21: Pt is performing his revised HEP LTG Duration Met 1 Penitentiary Goal (LTG) Pt will report an overall 50% improvement in left shoulder and back pain to improve overall quality of life by . 05/10/21: Pt reports at least a 50% improvement in left shoulder pain since starting PT LTG Duration Met Assessment Summary Assessment Pt has met PT goals including reports of improvement in left shoulder pain and HEP goal. His left shoulder AROM is always improved with [place] Protocol, including today. Pt has maximized skilled PT needs. Will d/c PT. Physical Therapy Plan Frequency and Duration Frequency of Treatment 1x/Week Duration of Treatment 6 weeks Plan of Care Start Date 04/12/21 Plan of Care End Date 05/31/21 Therapeutic Interventions Therapeutic Interventions Canalithic Repositioning,Home Exercise Program,Joint Mobilizations,Manual Therapy, Neuromuscular Re-education, Patient/Caregiver Education, Self-Care/Home Management,Soft Tissue Mobilization,Taping, Therapeutic Exercises Modalities Cold Pack/Ice Massage,Electric Stimulation,Hot Packs, Ultrasound
== END 2021-05-10 15:32 | disposition home or self-care (01) ==
LOC: PHYS 14:30
PROVIDERS: Family Provider Student in an Organized Health Care Education/Training Program; PCP Student in an Organized Health Care Education/Training Program; Referring Provider Student in an Organized Health Care Education/Training Program; Visit Provider Student in an Organized Health Care Education/Training Program
DX: M54.9 Dorsalgia, unspecified (principal); G89.29 Other chronic pain; M25.512 Pain in left shoulder
CPT/HCPCS: 97110; 97140; 97161

== ENCOUNTER → 2021-11-13 13:49 | Outpatient (CLI) | payer MEDICARE, OTHER, SELFPAY ==
[2021-11-13 16:32] LABS: BUN Creatinine Ratio 20.7 (6-22); Blood Urea Nitrogen 18 mg/dL (9-20); Calcium 9.4 mg/dL (8.4-10.2); Carbon Dioxide 27 mmol/L (22-32); Chloride 104 mmol/L (98-107); Estimated Glomerular Filt Rate > 60.0 mL/min (>60); Glucose 100 mg/dL (80-110); HEMOLYSIS < 15 (0-50); Potassium 4.1 mmol/L (3.4-5.1); Sodium 137 mmol/L (137-145)
[2021-11-13 17:01] LABS: Prostate Specific Antigen Scrn 1.77 ng/mL (0.1-4.0)
== END ==
PROVIDERS: Family Provider Student in an Organized Health Care Education/Training Program; PCP Student in an Organized Health Care Education/Training Program; Referring Provider Student in an Organized Health Care Education/Training Program; Visit Provider Student in an Organized Health Care Education/Training Program
DX: I10 Essential (primary) hypertension (principal); Z12.5 Encounter for screening for malignant neoplasm of prostate
CPT/HCPCS: 36415; 80048; G0103

== ENCOUNTER → 2021-12-12 13:16 | Outpatient (CLI) | payer MEDICARE, OTHER, SELFPAY ==
[2021-12-13 18:17] LABS: Fecal Immunochemical Test Negative (Negative)
== END ==
PROVIDERS: Family Provider Student in an Organized Health Care Education/Training Program; PCP Student in an Organized Health Care Education/Training Program; Referring Provider Student in an Organized Health Care Education/Training Program; Visit Provider Student in an Organized Health Care Education/Training Program
DX: Z12.11 Encounter for screening for malignant neoplasm of colon (principal)
CPT/HCPCS: 82274

== ENCOUNTER 2022-09-07 16:17 | Emergency (ER) | payer OTHER, MEDICARE, SELFPAY ==
[2022-09-07 16:29] VITALS: BP 149/78; PULSE 58; RESP 18; TEMP 36.4; O2SAT 95; BMI 25.7
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
[2022-09-07 19:53] VITALS: BP 183/83; PULSE 66; RESP 17; O2SAT 98
== END 2022-09-07 19:53 | disposition home or self-care (01) ==
PROVIDERS: Emergency Provider Physician Assistant; Family Provider Student in an Organized Health Care Education/Training Program; PCP Student in an Organized Health Care Education/Training Program
DX: R51.9 Headache, unspecified (principal); V89.2XXA Person injured in unspecified motor-vehicle accident, traffic, initial encounter
CPT/HCPCS: 99281

== ENCOUNTER 2022-09-27 14:30 | Outpatient (RCR) | payer MEDICARE, OTHER, SELFPAY ==
--- NOTE | 2022-09-06 11:08 | PT.OIE ---
Current Diagnoses Pain in left shoulder (09/06/22) Muscle weakness (generalized) (09/06/22) Abnormal posture (09/06/22) Past Medical History (Last Updated 08/18/18 @ 15:07 by Tory Sebastian) Asthma (2004) Chicken pox (1956) Chronic back pain (1979) Hayfever (2004) Hyperlipidemia Measles (1960) Mumps (1957) Past Surgical History (Last Updated 08/18/18 @ 15:07 by Tory Sebastian) Anesthesia No history of previous surgery (06/2015) Visit Care Team Role Provider Type Chito Benítez MD Attending Provider Physician Family Provider Primary Care Provider Referring Provider Specialty: Internal Medicine Address: [address] [place] [address], [address], [facility] Email: [email or web address] Physical Therapy Initial Evaluation PT-OP-A Visit Information Start: 09/05/22 17:44 Freq: Status: Active Protocol: Document 09/06/22 09:07 [facility] (Rec: 09/06/22 09:55 [facility] [id number]) Out-Patient Physical Therapy Visit Information Visit Information Visit Type Initial Evaluation Visit Note 12/11 Visit Start Time 09:06 Visit Stop Time 09:46 Total Visit Minutes 40 Visit Number 1 Number of IRON POURER Visits 0 PT-OP-B Current Condition Start: 09/05/22 17:44 Freq: Status: Active Protocol: Document 09/06/22 09:07 [facility] (Rec: 09/06/22 09:55 [facility] [id number]) Current Condition History of Current Condition Onset Date 3 weeks ago Current Complaints L arm History of Current Condition Pt was lifting a compressor into abd from under abd and felt a sharp but denies any pops. It just gave out. He didn't do anything for a week then he took ibuprofen and that really helped a lot (3 pills for 4 times a day for a week) and stopped ibuprofen and it is back. He does tband exercises 3x/week and does HIIT training 3 times a week and hikes daily an hour. He stopped for 3 weeks but has restarted but doesn't think it makes it worse neccesarily. HIs L ant thigh has started hurting. He is doing carpel tunnel surgery on L in Nov and will do R when he recovers. He had EMG done and that showed carpel tunnel. 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 Pt has history of R shouder pain that got better w/exercise and ibuprofen in his 40s. Pt reports he does have intermittent neck pain with some nerve pain. 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, dec pain PT-OP-C Subjective Start: 09/05/22 17:44 Freq: Status: Active Protocol: Document 09/06/22 09:07 [facility] (Rec: 09/06/22 09:55 [facility] [id number]) Patient Questionnaires Quick Dash- Upper Extremity Quick Dash UE Score 43 OP-PT Pain Assessment Location L shoulder Pain Location Details lat L brachium proximal Intensity 5 Scale Used Numeric (0 - 10) Description Aching,With Movement Description- Other not sharp, it just hurts Frequency Frequent Pain Aggravating Factors Changing Position,Lifting Other Pain Aggravating Factors carpentry work Pain Alleviating Factors Inactivity Other Pain Alleviating Factors ibuprofen PT-OP-F Manual Assessment Start: 09/05/22 17:44 Freq: Status: Active Protocol: Document 09/06/22 09:07 [facility] (Rec: 09/06/22 09:55 [facility] [id number]) Manual Assessments Soft Tissue Assessment Soft Tissue Mobility Assessment tightness/tenderness infrapinatus, biceps, UT, pec, tender supraspinatus tendon Joint Mobility Assessment Joint Mobility Assessment L 1st rib elevated PT-OP-J Posture/Palpation/Skin Start: 09/05/22 17:44 Freq: Status: Active Protocol: Document 09/06/22 09:07 [facility] (Rec: 09/06/22 09:55 [facility] [id number]) Posture Evaluation [facility] Postural Classification System Elbow Flexion Test 1 Comments Posture Comments slight L scap winging, fwd rotated, abd, elevated L shoulder PT-OP-K Range of Motion Start: 09/05/22 17:44 Freq: Status: Active Protocol: Document 09/06/22 09:07 [facility] (Rec: 09/06/22 09:55 [facility] [id number]) Shoulder Goniometric Range of Motion Shoulder Right Active Flexion 158 Extension 75 Abduction 170 External Rotation at 90 degrees 79 Abduction External Rotation at 0 degrees Abduction 74 Internal Rotation Behind Back (text) T7 Left Active Flexion 118 Extension 53 Abduction 111 External Rotation at 90 degrees 63 Abduction External Rotation at 0 degrees Abduction 60 Internal Rotation Behind Back (text) T12 PT-OP-L Special Tests Start: 09/05/22 17:44 Freq: Status: Active Protocol: Document 09/06/22 09:07 [facility] (Rec: 09/06/22 09:55 [facility] [id number]) Special Tests Shoulder Special Tests Dur[place] Dimas Impingement Test Results positive L Neer Impingement Test Results minor pain at end range Cassia Test Test Results neg L Speed's Biceps Test Results positive L Yergason's Biceps Test Results neg Empty Can Test Results positve-slight more pain Drop Arm Rotator Cuff Test Results neg Sulcus Test Results neg AC Joint Compression Test Results neg Neural Special Tests- Upper Body Median Nerve Tension Test Results neg L Radial Nerve Tension Test Results positive L Ulnar Nerve Tension Test Results neg L PT-OP-M Strength Start: 09/05/22 17:44 Freq: Status: Active Protocol: Document 09/06/22 09:07 [facility] (Rec: 09/06/22 09:55 [facility] [id number]) Shoulder Strength Shoulder Manual Muscle Testing Right Flexion 5 Normal Extension 5 Normal Abduction (C5) 5 Normal Adduction 5 Normal External Rotation 5 Normal Internal Rotation 5 Normal Horizontal Abduction 5 Normal Horizontal Adduction 5 Normal Left Flexion 3+ Fair+ Extension 4+ Good+ Abduction (C5) 3 Fair Adduction 5 Normal External Rotation 4 Good Internal Rotation 3+ Fair+ Horizontal Abduction 4 Good Horizontal Adduction 4 Good Comments pain Elbow/Forearm Strength Elbow and Forearm Manual Muscle Testing Right Flexion (C6) 5 Normal Extension (C7) 5 Normal Pronation 5 Normal Supination 5 Normal Left Flexion (C6) 4+ Good+ Extension (C7) 5 Normal Pronation 4+ Good+ Supination 4 Good PT-OP-T Assessment and Plan Start: 09/05/22 17:44 Freq: Status: Active Protocol: Document 09/06/22 09:07 [facility] (Rec: 09/06/22 09:55 [facility] [id number]) Physical Therapy Assessment Rehab Potential Rehabilitation Potential Good Evaluation Complexity Number of Personal Factors/Comorbidities 3 or More Number of Body Systems Impaired 4 or More Clinical Presentation at Evaluation Evolving Impairments Impairments Activity Tolerance,Functional Activities,Functional Mobility ,Pain,Posture,ROM,Soft Tissue Mobility,Strength Goals ROM Fdc Goal (LTG) Pt will have equal ROM of LUE to that of RUE w/o pain to improve pt ability to do overhead activtiies. LTG Duration 11/06 strength Short Term Goal (STG) Pt will be indep w/HEP STG Duration 10/16 Photographic Double Goal (LTG) Pt will have 5/5 LUE stength and EFT to at least 4/5 w/o pain to allow for painfree lifting for pt when doing carpentry work LTG Duration 11/29 activities Short Term Goal (STG) Pt will be able to sleep w/o waking w/inc pain STG Duration 10/31 Photographic Double Goal (LTG) Pt will be able to do all carpentry work and housework w /o inc L shoulder pain. LTG Duration 11/29 Quick Dash Impairment 43 Short Term Goal (STG) Pt will improve quick dash score to no higher than 23 to show improved functional ability. STG Duration 10/21 Fdc Goal (LTG) Pt will improve quick dash score to no higher than 5 to show improved functional ability. LTG Duration 11/29 Assessment Summary Assessment Pt presents w/sudden onset of L brachium pain 3 weeks ago when lifting an air compressor into abd from under a bench one handed. He improved his painw /ibuprofen use for one week but when he stopped ibuprofen, his pain came back. pt was educated to ice as he does not want to use ibuprofen for any long periods. Pt appears to have irritated RC mm and has elevated first rib on L side which may be why he has a positive radial n tension test with both of these issues contributing to his pain. He will require PT to work on improving strength & ROM and improving scap thoracic and glenohumeral mechanics in order to return to to typical high level of activity w/o inc pain. He will be having carpel tunnel release on L in a month which will delay and complicate recovery. Physical Therapy Plan Frequency and Duration Frequency of Treatment 2x/Week Duration of treatment (weeks) 12 Plan of Care Start Date 09/06/22 Plan of Care End Date 11/29/22 Therapeutic Interventions Therapeutic Interventions Aquatic Therapy,Home Exercise Program,Joint Mobilizations, Manual Therapy,Neuromuscular Re-education,Orthotic/ Prosthetic Management,Patient/ Caregiver Education,Self-Care/ Home Management,Soft Tissue Mobilization,Taping, Therapeutic Activities, Therapeutic Exercises Modalities Cold Pack/Ice Massage,Electric Stimulation,Hot Packs, Infrared Therapy,Ultrasound Next Visit Focus/Plan Next Note Type Treatment Note Next Visit Plan look at form w/his own exercises and determine if appropriate, if needed add some AAROM, manual to L shoulder(pecs, UT, infraspinatus STM), GH and scap, AC, SC mobs
--- NOTE | 2022-09-06 11:08 | PT.OPPOC ---
Physical, Occupational & Speech Therapy At [facility] Current Diagnoses Pain in left shoulder (09/06/22) Muscle weakness (generalized) (09/06/22) Abnormal posture (09/06/22) Visit Care Team Role Provider Type Chito Benítez MD Attending Provider Physician Family Provider Primary Care Provider Referring Provider Specialty: Internal Medicine Address: [address] [place] [address], [address], [facility] Email: [email or web address] Plan Of Care PT-OP-T Assessment and Plan Start: 09/05/22 17:44 Freq: Status: Active Protocol: Document 09/06/22 09:07 [facility] (Rec: 09/06/22 09:55 [facility] [id number]) Physical Therapy Assessment Rehab Potential Rehabilitation Potential Good Evaluation Complexity Number of Personal Factors/Comorbidities 3 or More Number of Body Systems Impaired 4 or More Clinical Presentation at Evaluation Evolving Impairments Impairments Activity Tolerance,Functional Activities,Functional Mobility ,Pain,Posture,ROM,Soft Tissue Mobility,Strength Goals ROM [facility] Goal (LTG) Pt will have equal ROM of LUE to that of RUE w/o pain to improve pt ability to do overhead activtiies. 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 LTG Duration 11/29 Quick Dash Impairment 43 Short Term Goal (STG) Pt will improve quick dash score to no higher than 23 to show improved functional ability. STG Duration 10/21 [facility] Goal (LTG) Pt will improve quick dash score to no higher than 5 to show improved functional ability. LTG Duration 11/29 Assessment Summary Assessment Pt presents w/sudden onset of L brachium pain 3 weeks ago when lifting an air compressor into abd from under a bench one handed. He improved his painw /ibuprofen use for one week but when he stopped ibuprofen, his pain came back. pt was educated to ice as he does not want to use ibuprofen for any long periods. Pt appears to have irritated RC mm and has elevated first rib on L side which may be why he has a positive radial n tension test with both of these issues contributing to his pain. He will require PT to work on improving strength & ROM and improving scap thoracic and glenohumeral mechanics in order to return to to typical high level of activity w/o inc pain. He will be having carpel tunnel release on L in a month which will delay and complicate recovery. Physical Therapy Plan Frequency and Duration Frequency of Treatment 2x/Week Duration of treatment (weeks) 12 Plan of Care Start Date 09/06/22 Plan of Care End Date 11/29/22 Therapeutic Interventions Therapeutic Interventions Aquatic Therapy,Home Exercise Program,Joint Mobilizations, Manual Therapy,Neuromuscular Re-education,Orthotic/ Prosthetic Management,Patient/ Caregiver Education,Self-Care/ Home Management,Soft Tissue Mobilization,Taping, Therapeutic Activities, Therapeutic Exercises Modalities Cold Pack/Ice Massage,Electric Stimulation,Hot Packs, Infrared Therapy,Ultrasound Next Visit Focus/Plan Next Note Type Treatment Note Next Visit Plan look at form w/his own exercises and determine if appropriate, if needed add some AAROM, manual to L shoulder(pecs, UT, infraspinatus STM), GH and scap, AC, SC mobs Plan of Care Dates Plan of Care Start Date 09/06/22 Plan of Care End Date 11/29/22 Electronically Signed by: Valentine Olivera, PT 09/06/22 1058 If you are in agreement with this Plan of Care, please return a signed and dated copy. I have reviewed this Plan of Care and certify that the skilled therapy services above are required to meet the patient?s needs. Physician Signature Date Printed Name and Credentials Clinical Instructor Signature Printed Name and Credentials
--- NOTE | 2022-09-07 13:48 | PT.OTN ---
Current Diagnoses Pain in left shoulder (09/07/22) Muscle weakness (generalized) (09/07/22) Abnormal posture (09/07/22) Physical Therapy Treatment Note PT-OP-A Visit Information Start: 09/05/22 17:44 Freq: Status: Active Protocol: Document 09/07/22 13:06 SP (Rec: 09/07/22 13:51 SP [id number]) Out-Patient Physical Therapy Visit Information Visit Information Visit Type Treatment Note Visit Start Time 13:06 Visit Stop Time 13:48 Total Visit Minutes 42 Visit Number 2 Number of MEDIA RELATIONS ASSOCIATE Visits 1 PT-OP-B Current Condition Start: 09/05/22 17:44 Freq: Status: Active Protocol: Document 09/06/22 09:07 [facility] (Rec: 09/06/22 09:55 [facility] [id number]) Current Condition History of Current Condition Onset Date 3 weeks ago Current Complaints L arm History of Current Condition Pt was lifting a compressor into abd from under abd and felt a sharp but denies any pops. It just gave out. He didn't do anything for a week then he took ibuprofen and that really helped a lot (3 pills for 4 times a day for a week) and stopped ibuprofen and it is back. He does tband exercises 3x/week and does HIIT training 3 times a week and hikes daily an hour. He stopped for 3 weeks but has restarted but doesn't think it makes it worse neccesarily. HIs L ant thigh has started hurting. He is doing carpel tunnel surgery on L in Nov and will do R when he recovers. He had EMG done and that showed carpel tunnel. 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 Pt has history of R shouder pain that got better w/exercise and ibuprofen in his 40s. Pt reports he does have intermittent neck pain with some nerve pain. 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 Uses timed overall online exercise programs to follow at home. PT-OP-F Manual Assessment Start: 09/05/22 17:44 Freq: Status: Active Protocol: Document 09/06/22 09:07 [facility] (Rec: 09/06/22 09:55 [facility] [id number]) Manual Assessments Soft Tissue Assessment Soft Tissue Mobility Assessment tightness/tenderness infrapinatus, biceps, UT, pec, tender supraspinatus tendon Joint Mobility Assessment Joint Mobility Assessment L 1st rib elevated PT-OP-J Posture/Palpation/Skin Start: 09/05/22 17:44 Freq: Status: Active Protocol: Document 09/06/22 09:07 [facility] (Rec: 09/06/22 09:55 [facility] [id number]) Posture Evaluation Ezekiel Postural Classification System Elbow Flexion Test 1 Comments Posture Comments slight L scap winging, fwd rotated, abd, elevated L shoulder PT-OP-K Range of Motion Start: 09/05/22 17:44 Freq: Status: Active Protocol: Document 09/06/22 09:07 [facility] (Rec: 09/06/22 09:55 [facility] [id number]) Shoulder Goniometric Range of Motion Shoulder Right Active Flexion 158 Extension 75 Abduction 170 External Rotation at 90 degrees 79 Abduction External Rotation at 0 degrees Abduction 74 Internal Rotation Behind Back (text) T7 Left Active Flexion 118 Extension 53 Abduction 111 External Rotation at 90 degrees 63 Abduction External Rotation at 0 degrees Abduction 60 Internal Rotation Behind Back (text) T12 PT-OP-L Special Tests Start: 09/05/22 17:44 Freq: Status: Active Protocol: Document 09/06/22 09:07 [facility] (Rec: 09/06/22 09:55 [facility] [id number]) Special Tests Shoulder Special Tests Durant Dimas Impingement Test Results positive L Neer Impingement Test Results minor pain at end range [place] Test Test Results neg L Speed's Biceps Test Results positive L Yergason's Biceps Test Results neg Empty Can Test Results positve-slight more pain Drop Arm Rotator Cuff Test Results neg Sulcus Test Results neg AC Joint Compression Test Results neg Neural Special Tests- Upper Body Median Nerve Tension Test Results neg L Radial Nerve Tension Test Results positive L Ulnar Nerve Tension Test Results neg L PT-OP-M Strength Start: 09/05/22 17:44 Freq: Status: Active Protocol: Document 09/06/22 09:07 [facility] (Rec: 09/06/22 09:55 [facility] [id number]) Shoulder Strength Shoulder Manual Muscle Testing Right Flexion 5 Normal Extension 5 Normal Abduction (C5) 5 Normal Adduction 5 Normal External Rotation 5 Normal Internal Rotation 5 Normal Horizontal Abduction 5 Normal Horizontal Adduction 5 Normal Left Flexion 3+ Fair+ Extension 4+ Good+ Abduction (C5) 3 Fair Adduction 5 Normal External Rotation 4 Good Internal Rotation 3+ Fair+ Horizontal Abduction 4 Good Horizontal Adduction 4 Good Comments pain Elbow/Forearm Strength Elbow and Forearm Manual Muscle Testing Right Flexion (C6) 5 Normal Extension (C7) 5 Normal Pronation 5 Normal Supination 5 Normal Left Flexion (C6) 4+ Good+ Extension (C7) 5 Normal Pronation 4+ Good+ Supination 4 Good PT-OP-Q Treatments Start: 09/05/22 17:44 Freq: Status: Active Protocol: Document 09/07/22 13:06 SP (Rec: 09/07/22 13:51 SP [id number]) Therapeutic Exercises Sidelying Exercises open book Sidelying Exercise Name added to HEP Side bilateral Reps/Minutes x10 Comments good feedback, cued scap depression, head turn with arm movement Standing Exercises chintuck Standing Exercise Name added Comments cued during ther ex for alignment Rows, ext Standing Exercise Name reviewed HEP Resistance TB #3 Reps/Minutes x10 Comments cued scap/ posturing Other Exercises home HEP Other Exercise Name started review (site to look at/help recall): resisted squats, Resistance exercise tubing (unsure resistance) Comments cued posturing, not do resistance front lift OH until see in PT reviewed Manual Therapy Treatment Soft Tissue Mobilization L shld, neck Body Location L UT, LS, SCM, pec, suprasp, infra sp, sub scap, distal lat , rhomboid Mobilization Type Myofascial Release,Strumming, Sustained Pressure,Trigger Point Release Intensity/Depth Moderate Comments supine & R sidlying Joint Mobilizations 1st rib Direction sup> inferior Grade II Body Position Hooklying Comments good feedback response, passive and with AAROM LUE scapulothoracic Joint L Direction infer, depression Grade II Body Position Sidelying Comments Manual and instruction open book Self-Care/Home Management Treatment Education Patient Education Body Mechanics,Home Exercise Program,Posture Other Education Extra time spent education importance of good posture alignment with resistance due to increase load compenstations over time in back/posterior chain can cause pain. Pt understood and wants to bring in computer HEP so can go over and give more feedback on safety doing, unable to recall all and work demonstration in time alloted. PT-OP-T Assessment and Plan Start: 09/05/22 17:44 Freq: Status: Active Protocol: Document 09/07/22 13:06 SP (Rec: 09/07/22 13:51 SP [id number]) Physical Therapy Assessment Goals ROM [facility] Goal (LTG) Pt will have equal ROM of LUE to that of RUE w/o pain to improve pt ability to do overhead activtiies. 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 LTG Duration 11/29 Quick Dash Impairment 43 Short Term Goal (STG) Pt will improve quick dash score to no higher than 23 to show improved functional ability. STG Duration 10/21 [facility] Goal (LTG) Pt will improve quick dash score to no higher than 5 to show improved functional ability. LTG Duration 11/29 Assessment Summary Assessment Pt responded well to manual, added open book/ continue shld for rows/ext, start review home online HEP (wouldn't play on phone). Discussed not perform HEP front resisted OH until see in PT next tx due to pull on UT/ scap compensations noted briefly seen during front upright modified rows with arms semi extended. Physical Therapy Plan Frequency and Duration Frequency of Treatment 2x/Week Duration of treatment (weeks) 12 Plan of Care Start Date 09/06/22 Plan of Care End Date 11/29/22 Therapeutic Interventions Therapeutic Interventions Aquatic Therapy,Home Exercise Program,Joint Mobilizations, Manual Therapy,Neuromuscular Re-education,Orthotic/ Prosthetic Management,Patient/ Caregiver Education,Self-Care/ Home Management,Soft Tissue Mobilization,Taping, Therapeutic Activities, Therapeutic Exercises Modalities Cold Pack/Ice Massage,Electric Stimulation,Hot Packs, Infrared Therapy,Ultrasound Next Visit Focus/Plan Next Note Type Treatment Note Next Visit Plan Next add pec/ UT/LS/SCM stretching and continue look at home tubing (bring with him ) HEP looking at form w/his own exercises and determine if appropriate, if needed add some AAROM, manual to L shoulder (pecs, UT, infraspinatus STM), GH and scap, AC, SC mobs
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
--- NOTE | 2022-09-25 14:22 | PT.OTN ---
Current Diagnoses Pain in left shoulder (09/25/22) Muscle weakness (generalized) (09/25/22) Abnormal posture (09/25/22) Physical Therapy Treatment Note PT-OP-A Visit Information Start: 09/05/22 17:44 Freq: Status: Active Protocol: Document 09/25/22 12:59 NBM (Rec: 09/25/22 14:19 NBM [id number]) Out-Patient Physical Therapy Visit Information Visit Information Visit Type Treatment Note Visit Note 04/10 Visit Start Time 13:00 Visit Stop Time 13:40 Total Visit Minutes 40 Visit Number 5 Number of PUNCH PRESS SETTER Visits 2 PT-OP-B Current Condition Start: 09/05/22 17:44 Freq: Status: Active Protocol: Document 09/06/22 09:07 [facility] (Rec: 09/06/22 09:55 [facility] [id number]) Current Condition History of Current Condition Onset Date 3 weeks ago Current Complaints L arm History of Current Condition Pt was lifting a compressor into abd from under abd and felt a sharp but denies any pops. It just gave out. He didn't do anything for a week then he took ibuprofen and that really helped a lot (3 pills for 4 times a day for a week) and stopped ibuprofen and it is back. He does tband exercises 3x/week and does HIIT training 3 times a week and hikes daily an hour. He stopped for 3 weeks but has restarted but doesn't think it makes it worse neccesarily. HIs L ant thigh has started hurting. He is doing carpel tunnel surgery on L in Nov and will do R when he recovers. He had EMG done and that showed carpel tunnel. 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 Pt has history of R shouder pain that got better w/exercise and ibuprofen in his 40s. Pt reports he does have intermittent neck pain with some nerve pain. 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 He states personal HEP w/ tubing no longer hurts his shoulder. PT-OP-F Manual Assessment Start: 09/05/22 17:44 Freq: Status: Active Protocol: Document 09/06/22 09:07 [facility] (Rec: 09/06/22 09:55 [facility] [id number]) Manual Assessments Soft Tissue Assessment Soft Tissue Mobility Assessment tightness/tenderness infrapinatus, biceps, UT, pec, tender supraspinatus tendon Joint Mobility Assessment Joint Mobility Assessment L 1st rib elevated PT-OP-J Posture/Palpation/Skin Start: 09/05/22 17:44 Freq: Status: Active Protocol: Document 09/06/22 09:07 [facility] (Rec: 09/06/22 09:55 [facility] [id number]) Posture Evaluation [facility] Postural Classification System Elbow Flexion Test 1 Comments Posture Comments slight L scap winging, fwd rotated, abd, elevated L shoulder PT-OP-K Range of Motion Start: 09/05/22 17:44 Freq: Status: Active Protocol: Document 09/06/22 09:07 [facility] (Rec: 09/06/22 09:55 [facility] [id number]) Shoulder Goniometric Range of Motion Shoulder Right Active Flexion 158 Extension 75 Abduction 170 External Rotation at 90 degrees 79 Abduction External Rotation at 0 degrees Abduction 74 Internal Rotation Behind Back (text) T7 Left Active Flexion 118 Extension 53 Abduction 111 External Rotation at 90 degrees 63 Abduction External Rotation at 0 degrees Abduction 60 Internal Rotation Behind Back (text) T12 PT-OP-L Special Tests Start: 09/05/22 17:44 Freq: Status: Active Protocol: Document 09/06/22 09:07 [facility] (Rec: 09/06/22 09:55 [facility] [id number]) Special Tests Shoulder Special Tests Durant Dimas Impingement Test Results positive L Neer Impingement Test Results minor pain at end range Bandera Test Test Results neg L Speed's Biceps Test Results positive L Yergason's Biceps Test Results neg Empty Can Test Results positve-slight more pain Drop Arm Rotator Cuff Test Results neg Sulcus Test Results neg AC Joint Compression Test Results neg Neural Special Tests- Upper Body Median Nerve Tension Test Results neg L Radial Nerve Tension Test Results positive L Ulnar Nerve Tension Test Results neg L PT-OP-M Strength Start: 09/05/22 17:44 Freq: Status: Active Protocol: Document 09/06/22 09:07 [facility] (Rec: 09/06/22 09:55 [facility] [id number]) Shoulder Strength Shoulder Manual Muscle Testing Right Flexion 5 Normal Extension 5 Normal Abduction (C5) 5 Normal Adduction 5 Normal External Rotation 5 Normal Internal Rotation 5 Normal Horizontal Abduction 5 Normal Horizontal Adduction 5 Normal Left Flexion 3+ Fair+ Extension 4+ Good+ Abduction (C5) 3 Fair Adduction 5 Normal External Rotation 4 Good Internal Rotation 3+ Fair+ Horizontal Abduction 4 Good Horizontal Adduction 4 Good Comments pain Elbow/Forearm Strength Elbow and Forearm Manual Muscle Testing Right Flexion (C6) 5 Normal Extension (C7) 5 Normal Pronation 5 Normal Supination 5 Normal Left Flexion (C6) 4+ Good+ Extension (C7) 5 Normal Pronation 4+ Good+ Supination 4 Good PT-OP-Q Treatments Start: 09/05/22 17:44 Freq: Status: Active Protocol: Document 09/25/22 12:59 [facility] (Rec: 09/25/22 14:19 [facility] [id number]) Therapeutic Exercises Supine Exercises LTR Side bilateral Equipment Used 1/2 foam Comments to alleviate cramping in back pec stretch, HABD, FF over foam roller Supine Exercise Name 1. FF 2. HABD 3. 1/2X 4. Ys<> Ws Resistance TB #3 Equipment Used 1/2 foam Reps/Minutes x10 each Comments verbal/tactile cues scap Dep/ Rot Sidelying Exercises open book Sidelying Exercise Name reviewed HEP Side bilateral Reps/Minutes x10 Comments vc scap depression, head turn with arm movement Standing Exercises chintuck Standing Exercise Name reviewed Reps/Minutes 5 sec hold x5 Comments cued, not flexion, more upright CS rectraction Self-Care/Home Management Treatment Education Patient Education Home Exercise Program,Posture Other Education HEP review. PT-OP-T Assessment and Plan Start: 09/05/22 17:44 Freq: Status: Active Protocol: Document 09/25/22 12:59 [facility] (Rec: 09/25/22 14:19 [facility] [id number]) Physical Therapy Assessment Goals ROM Skilled Nursing Goal (LTG) Pt will have equal ROM of LUE to that of RUE w/o pain to improve pt ability to do overhead activtiies. LTG Duration 12/6 strength Short Term Goal (STG) Pt will be indep w/HEP STG Duration 10/16 Skilled Nursing Goal (LTG) Pt will have 5/5 LUE stength and EFT to at least 4/5 w/o pain to allow for painfree lifting for pt when doing carpentry work LTG Duration 11/29 activities Short Term Goal (STG) Pt will be able to sleep w/o waking w/inc pain STG Duration 10/31 Skilled Nursing Goal (LTG) Pt will be able to do all carpentry work and housework w /o inc L shoulder pain. LTG Duration 11/29 Quick Dash Impairment 43 Short Term Goal (STG) Pt will improve quick dash score to no higher than 23 to show improved functional ability. STG Duration 10/21 Field Marketing Director Goal (LTG) Pt will improve quick dash score to no higher than 5 to show improved functional ability. LTG Duration 11/29 Assessment Summary Assessment Pt requires consistent cues for chin tuck, scapular setting w/ UE mobility, and posterior pelvic tilt on 1/2 foam roller. Pt also requires cues not to hold breath. Pt tolerated today's treatment with no increase in baseline symptoms and wishes to discuss focusing PT on hip/thigh pain instead - pt will contact PCP for new referral and discuss w/ PT at next shoulder appt. Physical Therapy Plan Frequency and Duration Frequency of Treatment 2x/Week Duration of treatment (weeks) 12 Plan of Care Start Date 09/06/22 Plan of Care End Date 11/29/22 Therapeutic Interventions Therapeutic Interventions Aquatic Therapy,Home Exercise Program,Joint Mobilizations, Manual Therapy,Neuromuscular Re-education,Orthotic/ Prosthetic Management,Patient/ Caregiver Education,Self-Care/ Home Management,Soft Tissue Mobilization,Taping, Therapeutic Activities, Therapeutic Exercises Modalities Cold Pack/Ice Massage,Electric Stimulation,Hot Packs, Infrared Therapy,Ultrasound Next Visit Focus/Plan Next Note Type Treatment Note Next Visit Plan Check if pt pursued PT referral for leg in place of shoulder. REview: pec, UT, LS stretches, supine foam roller TB, open book, chin tucks. POC: cont to wrok on scap staibltiy & manual for improved scap and shoulde rmobility
--- NOTE | 2022-09-27 15:22 | PT.OTN ---
Current Diagnoses Pain in left shoulder (09/27/22) Muscle weakness (generalized) (09/27/22) Abnormal posture (09/27/22) Physical Therapy Treatment Note PT-OP-A Visit Information Start: 09/05/22 17:44 Freq: Status: Active Protocol: Document 09/27/22 14:11 [facility] (Rec: 09/27/22 15:22 [facility] [id number]) Out-Patient Physical Therapy Visit Information Visit Information Visit Type Discharge Summary Visit Start Time 14:30 Visit Stop Time 15:14 Total Visit Minutes 44 Visit Number 6 Number of PUMP OPERATOR Visits 0 PT-OP-B Current Condition Start: 09/05/22 17:44 Freq: Status: Active Protocol: Document 09/06/22 09:07 [facility] (Rec: 09/06/22 09:55 [facility] [id number]) Current Condition History of Current Condition Onset Date 3 weeks ago Current Complaints L arm History of Current Condition Pt was lifting a compressor into abd from under abd and felt a sharp but denies any pops. It just gave out. He didn't do anything for a week then he took ibuprofen and that really helped a lot (3 pills for 4 times a day for a week) and stopped ibuprofen and it is back. He does tband exercises 3x/week and does HIIT training 3 times a week and hikes daily an hour. He stopped for 3 weeks but has restarted but doesn't think it makes it worse neccesarily. HIs L ant thigh has started hurting. He is doing carpel tunnel surgery on L in Nov and will do R when he recovers. He had EMG done and that showed carpel tunnel. 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 Pt has history of R shouder pain that got better w/exercise and ibuprofen in his 40s. Pt reports he does have intermittent neck pain with some nerve pain. 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 He is only working 2-3 hours a day and doing ok. PT-OP-F Manual Assessment Start: 09/05/22 17:44 Freq: Status: Active Protocol: Document 09/06/22 09:07 [facility] (Rec: 09/06/22 09:55 [facility] [id number]) Manual Assessments Soft Tissue Assessment Soft Tissue Mobility Assessment tightness/tenderness infrapinatus, biceps, UT, pec, tender supraspinatus tendon Joint Mobility Assessment Joint Mobility Assessment L 1st rib elevated PT-OP-J Posture/Palpation/Skin Start: 09/05/22 17:44 Freq: Status: Active Protocol: Document 09/27/22 14:11 [facility] (Rec: 09/27/22 15:22 [facility] [id number]) Posture Evaluation [facility] Postural Classification System Elbow Flexion Test 3 PT-OP-K Range of Motion Start: 09/05/22 17:44 Freq: Status: Active Protocol: Document 09/27/22 14:11 [facility] (Rec: 09/27/22 15:22 [facility] [id number]) Shoulder Goniometric Range of Motion Shoulder Right Active Flexion 158 Extension 75 Abduction 170 External Rotation at 90 degrees 79 Abduction External Rotation at 0 degrees Abduction 74 Internal Rotation Behind Back (text) T7 Left Active Flexion 150 Extension 70 Abduction 176 External Rotation at 90 degrees 77 Abduction External Rotation at 0 degrees Abduction 60 Internal Rotation Behind Back (text) T8 PT-OP-L Special Tests Start: 09/05/22 17:44 Freq: Status: Active Protocol: Document 09/06/22 09:07 [facility] (Rec: 09/06/22 09:55 [facility] [id number]) Special Tests Shoulder Special Tests [place] Dimas Impingement Test Results positive L Neer Impingement Test Results minor pain at end range [place] Test Test Results neg L Speed's Biceps Test Results positive L Yergason's Biceps Test Results neg Empty Can Test Results positve-slight more pain Drop Arm Rotator Cuff Test Results neg Sulcus Test Results neg AC Joint Compression Test Results neg Neural Special Tests- Upper Body Median Nerve Tension Test Results neg L Radial Nerve Tension Test Results positive L Ulnar Nerve Tension Test Results neg L PT-OP-M Strength Start: 09/05/22 17:44 Freq: Status: Active Protocol: Document 09/27/22 14:11 [facility] (Rec: 09/27/22 15:22 [facility] [id number]) Shoulder Strength Shoulder Manual Muscle Testing Right Flexion 5 Normal Extension 5 Normal Abduction (C5) 5 Normal Adduction 5 Normal External Rotation 5 Normal Internal Rotation 5 Normal Horizontal Abduction 5 Normal Horizontal Adduction 5 Normal Left Flexion 5 Normal Extension 5 Normal Abduction (C5) 4+ Good+ Adduction 5 Normal External Rotation 5 Normal Internal Rotation 5 Normal Horizontal Abduction 5 Normal Horizontal Adduction 5 Normal Comments pain w/abd PT-OP-Q Treatments Start: 09/05/22 17:44 Freq: Status: Active Protocol: Document 09/27/22 14:11 [facility] (Rec: 09/27/22 15:22 [facility] [id number]) Therapeutic Exercises Supine Exercises core Supine Exercise Name over head pull w/core Side bilateral Reps/Minutes l3 x8 Sidelying Exercises abd Side left Equipment Used 3# Reps/Minutes 12 Manual Therapy Treatment Soft Tissue Mobilization L shld, neck Body Location L UT, LS, pec, suprasp, infra sp, sub scap, distal lat, rhomboid Mobilization Type Myofascial Release,Strumming, Sustained Pressure,Trigger Point Release Intensity/Depth Moderate Comments R sidlying & sup Joint Mobilizations GH Joint L Direction distraction, post & inf FM AC Joint L gapping FM Self-Care/Home Management Treatment Education Other Education review of exercises he has avoided w/his typical program and discussion of how to get back to them and waht to focus on for form. Edu for cont w/ use of foma roll and discuss use of roll and or pool noodle, edu how to prop for sleep PT-OP-T Assessment and Plan Start: 09/05/22 17:44 Freq: Status: Active Protocol: Document 09/27/22 14:11 [facility] (Rec: 09/27/22 15:22 [facility] [id number]) Physical Therapy Assessment Goals ROM Franchise Field Consultant Goal (LTG) Pt will have equal ROM of LUE to that of RUE w/o pain to improve pt ability to do overhead activtiies. 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 LTG Duration minor pain only Quick Dash Impairment 43 Short Term Goal (STG) Pt will improve quick dash score to no higher than 23 to show improved functional ability. STG Duration improved to 25 Franchise Field Consultant Goal (LTG) Pt will improve quick dash score to no higher than 5 to show improved functional ability. LTG Duration 11/29 Assessment Summary Assessment Pt is doing well and showing much iprovemen at this time. He is indep w/exercies and feels good about DC as he has wrist surgery and wants to swtich to treatment of L leg pain Physical Therapy Plan Discharge Physical Therapy Discharge Reasons Goals Met
== END 2022-11-12 08:26 | disposition home or self-care (01) ==
LOC: PHYS 14:30
PROVIDERS: Family Provider Student in an Organized Health Care Education/Training Program; PCP Student in an Organized Health Care Education/Training Program; Referring Provider Student in an Organized Health Care Education/Training Program; Visit Provider Student in an Organized Health Care Education/Training Program
DX: M25.512 Pain in left shoulder (principal); M62.81 Muscle weakness (generalized); R29.3 Abnormal posture
CPT/HCPCS: 97110; 97140; 97162; 97535

== ENCOUNTER → 2022-12-10 14:53 | Outpatient (CLI) | payer MEDICARE, OTHER, SELFPAY ==
[2022-12-10 18:56] LABS: BUN Creatinine Ratio 25.3 (6-22); Blood Urea Nitrogen 21 mg/dL (9-20); Calcium 9.1 mg/dL (8.4-10.2); Carbon Dioxide 22 mmol/L (22-32); Chloride 104 mmol/L (98-107); Estimated Glomerular Filt Rate > 60 mL/min (>60); Glucose 87 mg/dL (80-110); HEMOLYSIS < 15 (0-50); Sodium 138 mmol/L (137-145)
[2022-12-10 19:25] LABS: Prostate Specific Antigen Scrn 1.28 ng/mL (0.1-4.0)
[2022-12-10 19:43] LABS: Hep C Virus Ab w/Reflex Quant NEGATIVE s/c (NEGATIVE)
== END ==
PROVIDERS: Family Provider Student in an Organized Health Care Education/Training Program; PCP Student in an Organized Health Care Education/Training Program; Referring Provider Student in an Organized Health Care Education/Training Program; Visit Provider Student in an Organized Health Care Education/Training Program
DX: Z12.5 Encounter for screening for malignant neoplasm of prostate (principal); I10 Essential (primary) hypertension; Z11.59 Encounter for screening for other viral diseases
CPT/HCPCS: 36415; 80048; 86803; G0103

== ENCOUNTER 2023-01-17 07:30 | Outpatient (RCR) | payer MEDICARE, OTHER, SELFPAY ==
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
--- NOTE | 2022-10-24 17:51 | PT.OPPOC ---
Physical, Occupational & Speech Therapy At [facility] Current Diagnoses Low back pain, unspecified (10/24/22) Pain in left thigh (10/24/22) Difficulty in walking, not elsewhere classified (10/24/22) Weakness (10/24/22) Visit Care Team Role Provider Type Chito Benítez MD Attending Provider Physician Family Provider Primary Care Provider Referring Provider Specialty: Internal Medicine Address: [address] [place] [address], [address], [address] Email: [email or web address] Plan Of Care PT-OP-T Assessment and Plan Start: 10/22/22 07:55 Freq: Status: Active Protocol: Document 10/24/22 13:45 [facility] (Rec: 10/24/22 14:31 [facility] [id number]) Physical Therapy Assessment Rehab Potential Rehabilitation Potential Good Evaluation Complexity Number of Personal Factors/Comorbidities 3 or More Number of Body Systems Impaired 4 or More Clinical Presentation at Evaluation Evolving Impairments Impairments Activity Tolerance,Balance, Functional Activities, Functional Mobility,Gait,Pain, Posture,ROM,Soft Tissue Mobility,Strength Goals activity Mcc Goal (LTG) Pt will be able to get in/out of the car w/o inc pain LTG Duration 01/02/23 strength' Short Term Goal (STG) Pt will be indep w/HEP STG Duration 12/02/22 Paralegal Specialist Goal (LTG) Pt will score 5/5 in MMT in LLE and at least 3/5 LPM in all planes to show improved stabiltiy to inc pt ability to do daily activities w/o pain. LTG Duration 01/16/23 sleeping Short Term Goal (STG) Pt will make changes to support back and LEs in bed to dec instances of pain STG Duration 12/02/22 Mcc Goal (LTG) Pt will report sleeping through the night w/o inc pain LTG Duration 01/16/23 walks Short Term Goal (STG) pt will be able to complete shorter walk (30 min) without inc leg symptoms Mcc Goal (LTG) pt will be able to complete typical walk (up to 90 min) without inc leg symptoms LTG Duration 01/16/23 Assessment Summary Assessment Pt presents w/L SI pain w/pain into L buttocks & groin, L lat thigh and lat lower leg with positive sciatic n testing (SLR & SLUMP). He is limited in his ability to participate in his typical active lifestyle w/o increasing pain and has significantly dec walk distance. He has restrictions in his hip mobility likely capsular and muscular taht are affecting these symptoms. He would benefit from skilled PT to work on posture, core and LE strength, balance, gait mechanics and decreasing pain. Physical Therapy Plan Frequency and Duration Frequency of Treatment 2x/Week Duration of treatment (weeks) 12 Plan of Care Start Date 10/24/22 Plan of Care End Date 01/16/23 Therapeutic Interventions Therapeutic Interventions Aquatic Therapy,Balance Training,Gait Training,Home Exercise Program,Joint Mobilizations,Manual Therapy, Neuromuscular Re-education, Orthotic/Prosthetic Management ,Patient/Caregiver Education, Self-Care/Home Management,Soft Tissue Mobilization,Taping, Therapeutic Activities, Therapeutic Exercises Modalities Cold Pack/Ice Massage,Electric Stimulation,Hot Packs, Infrared Therapy,Traction- Mechanical,Ultrasound Next Visit Focus/Plan Next Note Type Treatment Note Next Visit Plan supine core stability, hip stretches, manual to hip and thigh and back Plan of Care Dates Plan of Care Start Date 10/24/22 Plan of Care End Date 01/16/23 Electronically Signed by: Valentine Olivera, PT 10/24/22 0257 If you are in agreement with this Plan of Care, please return a signed and dated copy. I have reviewed this Plan of Care and certify that the skilled therapy services above are required to meet the patient?s needs. Physician Signature Date Printed Name and Credentials Clinical Instructor Signature Printed Name and Credentials
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
--- NOTE | 2022-12-24 08:36 | PT-OP ANOTE ---
Called pt re: no show and started to leave message re: missed appt, but VM cut off quickly, so PT was only able to state date and time of missed appt.
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
== END 2023-01-24 08:43 | disposition home or self-care (01) ==
LOC: PHYS 07:30
PROVIDERS: Family Provider Student in an Organized Health Care Education/Training Program; PCP Student in an Organized Health Care Education/Training Program; Referring Provider Student in an Organized Health Care Education/Training Program; Visit Provider Student in an Organized Health Care Education/Training Program
DX: M54.50 Low back pain, unspecified (principal); M79.652 Pain in left thigh; R53.1 Weakness; R26.2 Difficulty in walking, not elsewhere classified
CPT/HCPCS: 97110; 97112; 97116; 97140; 97162; 97535

== ENCOUNTER 2023-02-12 11:49 | Day surgery (SDC) | payer MEDICARE, OTHER, SELFPAY ==
--- NOTE | 2023-02-12 | PATH_ITS ---
[facility] Accession Number: [id number] No. of containers..01 Tissue . 01 Material submitted: . colon - DESCENDING COLON POLYP . 01 Diagnosis: Descending Colon, Polyp, Biopsy: Tubular adenoma. OTIS 02/18/2023 0940 Local . 01 Electronically signed: . Maureen Serrano MD, Pathologist NPI- [id number] . 01 Gross description: . DESCENDING COLON POLYP: Received in formalin are 2 fragment(s) of weiner, soft tissue measuring 0.3 x 0.1 x 0.1 cm to 0.2 x 0.1 x 0.1 cm submitted entirely in 1 cassette(s) /CPE 02/14/2023 0727 Local . 01 Pathologist provided ICD-10: D12.4 . 01 CPT . 966139 Specimen Comment: A courtesy copy of this report has been sent to [phone] Performed at: 01 [facility] [address] [place] [address], [place], [place] [id number] MD Reinaldo Mesa MD Phone: [phone]
[2023-02-12] MEDS: LACTATED RINGERS 1,000 ML 200 ML IV (11:59)
[2023-02-12 12:08] VITALS: BP 144/78; PULSE 65; RESP 18; TEMP 36.4; O2SAT 97; BMI 25.1
--- NOTE | 2023-02-12 13:17 | PM.HP.1 ---
History of Present Illness History of Present Illness Date Patient Seen: 02/12/23 Time Patient Seen: 13:17 Chief complaint: Colonoscopy Narrative: The patient presents for colorectal screening. Previously normal colonoscopy 12 years ago. No personal or family history of colon cancer. On further history denies any recent gastrointestinal symptoms. No nausea, vomiting, abdominal pain, loss of appetite, unexplained weight loss, change in bowel habits, or blood per rectum. Patient History Medical History Chicken pox (1956) Chronic back pain (1979) Hayfever (2004) Measles (1959) Mild intermittent asthma without complication (09/30/15) Mixed hyperlipidemia (09/30/15) Mumps (1957) Onychomycosis Surgical History Anesthesia No history of previous surgery (06/2015) Status post carpal tunnel release Family & Social History Family History Brother Post traumatic stress disorder (PTSD) Agent orange exposure Father Alcoholism Stroke Mother COPD (chronic obstructive pulmonary disease) Sister Age: 75 Parkinson's disease Grandfather No problems noted. Grandmother No problems noted. Social History: household members spouse Tobacco & Substance use: Smoking Status Former smoker alcohol intake current alcohol intake frequency 0-2 drinks per day Substance Use Type does not use Meds Home Medications and Allergies Home Medications Medication Instructions Recorded Confirmed Type cholecalciferol (vitamin D3) 25 1,000 unit PO QDAY ##0 08/14/17 02/12/23 History mcg (1,000 unit) tablet (Vitamin D3) vitamin B complex (B 1 tab PO DAILY 08/25/18 02/12/23 History Complex-Vitamin B12 tablet) amlodipine 10 mg tablet 10 mg PO DAILY #90 tabs 09/07/22 02/12/23 Rx atorvastatin 40 mg tablet 40 mg PO HS #90 tabs 12/10/22 02/12/23 Rx fluticasone 250 mcg-salmeterol 50 1 inh inhalation BID #180 ea 12/10/22 02/12/23 Rx mcg/dose blistr powdr for inhalation (Advair Diskus) lisinopril 20 mg tablet 20 mg PO DAILY #90 tabs 12/10/22 02/12/23 Rx Allergies Allergy/AdvReac Type Severity Reaction Status Date / Time No Known Drug Allergies Allergy Verified 02/12/23 12:18 Exam Vital Signs (past 8 hours): - 02/12/23 12:08 Temperature 97.6 F Pulse Rate 65 Respiratory Rate 18 Blood Pressure 144/78 H Pulse Oximetry 97 Oxygen Delivery Method Room Air Oxygen Delivery Method Room Air Narrative Exam Narrative: General adult man alert oriented no acute distress Abdomen soft nontender nondistended Assessment & Plan Assessment & Plan narrative: The patient requires colorectal screening and colonoscopy is recommended. Technical details were discussed. Risks, benefits, alternatives explained. Risks including but not limited to myocardial infarction, aspiration, bleeding, pain, missed lesion, incomplete examination, need for further radiographic studies, colonic perforation, and need for major abdominal surgery were discussed. All questions were answered to their satisfaction, and they are in agreement with this plan. Time Spent With Patient Critical Care time: I spent a total of [] minutes of critical care time on this patient's care today; this time is exclusive of procedural time.
--- NOTE | 2023-02-12 13:18 | PM.OP.COLON ---
Operative Date/Time/Diagnoses Date of procedure: 02/12/23 Time of procedure: 13:18 Pre-op diagnosis: Colorectal screening Post-op diagnosis: same Procedure & Clinicians Study performed: Colonoscopy Same procedure as scheduled: Yes Indications: Colorectal screening Surgeon: Kranthi Ramos Procedure Notes Procedure in detail: The history and physical was performed/updated and the patient is ASA class is 2. The procedure was discussed in detail with the patient. Potential risks complications including infection, bleeding, missed diagnosis, perforation, need for surgery, and were explained. Their questions were answered and informed consent was obtained. Patient was brought to the procedure room and placed standard monitoring equipment. The patient's vital signs were monitored continuously throughout the entire procedure. Prior to starting time-out was performed. The patient was placed in the left lateral recumbent position. Procedural sedation was administered by anesthesia. Examination began with a thorough inspection of the perianal area there was no evidence of fissures, fistulae, external hemorrhoids or cutaneous malignancy. The colonoscopy scope was then placed into the anal canal and was advanced to the cecum, which was identified by the ileocecal valve, the appendiceal orifice and the confluence of the taenia. The scope was then slowly withdrawn examining colon thoroughly in all directions, irrigating it of any residual stool. Within the descending colon there was a polyp less than 1 cm which was removed with forceps. The remainder of the colon was significant for extensive diverticulosis of the sigmoid colon. The patient tolerated the procedure well. They will be discharged once criteria are met. The prep was of good/excellent quality. The withdrawl time was 8 minutes. Specimen(s): other (Descending colon polyp) Impression: Colon polyp x1 Post-procedure Recommendations: High fiber diet Plan for aftercare: Follow-up is dependent on pathology findings Disposition: same day surgery
[2023-02-12 13:50] VITALS: PULSE 66; RESP 12; TEMP 36.2; O2SAT 97
[2023-02-12 13:55] VITALS: BP 97/67; PULSE 62; RESP 18; TEMP 36.2; O2SAT 98
[2023-02-12 14:00] VITALS: PULSE 53; RESP 16; TEMP 36.3; O2SAT 94
[2023-02-12 14:01] VITALS: BP 114/72
[2023-02-12 14:13] VITALS: BP 119/78; PULSE 59; RESP 14; TEMP 36.3; O2SAT 100
== END 2023-02-12 14:16 | disposition home or self-care (01) ==
PROVIDERS: Family Provider Student in an Organized Health Care Education/Training Program; PCP Student in an Organized Health Care Education/Training Program; Referring Provider Surgery; Visit Provider Surgery
PROC: 0DJD8ZZ Inspection of Lower Intestinal Tract, Via Natural or Artificial Opening Endoscopic (ICD-10-PCS; CPT 45378; principal; 2023-02-12 12:45)
DX: Z12.11 Encounter for screening for malignant neoplasm of colon (principal); K57.30 Diverticulosis of large intestine without perforation or abscess without bleeding; D12.4 Benign neoplasm of descending colon
CPT/HCPCS: 45380; J2704

== ENCOUNTER → 2023-03-07 19:01 | Outpatient (ROUT) | payer MEDICARE, OTHER, SELFPAY ==
[2023-03-07 20:08] LABS: MRSA (Nasal) PCR DETECTED (Not Detect)
== END ==
PROVIDERS: Family Provider Student in an Organized Health Care Education/Training Program; PCP Student in an Organized Health Care Education/Training Program; Visit Provider Dermatology
DX: L01.00 Impetigo, unspecified (principal)
CPT/HCPCS: 87797

== ENCOUNTER → 2023-11-27 14:04 | Outpatient (CLI) | payer MEDICARE, OTHER, SELFPAY ==
--- NOTE | 2023-11-27 14:07 | DI.RAD.S_ITS ---
PROCEDURE: XR CHEST 2V INDICATIONS: decreased breathe sounds questionable pnuemonia TECHNIQUE: 2 views of the chest were acquired. COMPARISON: [facility], CR, XR CHEST 2V, 11/11/2019, 15:44. [facility], CR, XR CHEST 2V, 11/07/2019, 16:22. FINDINGS: Surgical changes and devices: None. Lungs and pleura: Lungs are clear. No pleural effusions or pneumothorax. Mediastinum: Mediastinal contours are normal. Heart size is normal. Bones and chest wall: No suspicious bony abnormalities. Soft tissues appear unremarkable. IMPRESSION: No acute cardiopulmonary abnormality is seen. Dictated by: Chapito Ramires M.D. on 11/27/2023 at 15:22 Approved by: Chapito Ramires M.D. on 11/27/2023 at 15:25
== END ==
PROVIDERS: PCP Family Medicine; Referring Provider Family Medicine; Visit Provider Family Medicine
DX: R06.89 Other abnormalities of breathing (principal)
CPT/HCPCS: 71046

== ENCOUNTER → 2024-01-28 13:07 | Outpatient (CLI) | payer MEDICARE, OTHER, SELFPAY ==
[2024-01-28 14:31] LABS: Alanine Aminotransferase 27 IU/L (<50); Albumin 4.2 g/dL (3.5-5.0); Albumin Globulin Ratio 1.3 (1.0-2.8); Alkaline Phosphatase 69 U/L (38-126); Aspartate Aminotransferase 33 IU/L (17-59); BUN Creatinine Ratio 21.8 (6-22); Bilirubin Total 0.6 mg/dL (0.2-1.3); Blood Urea Nitrogen 19 mg/dL (9-20); Calcium 9.1 mg/dL (8.4-10.2); Carbon Dioxide 23 mmol/L (22-32); Chloride 103 mmol/L (98-107); Estimated Glomerular Filt Rate > 60 mL/min (>60); Globulin 3.3 g/dL (1.7-4.1); Glucose 113 mg/dL (80-110); HEMOLYSIS < 15 (0-50); Potassium 4.6 mmol/L (3.4-5.1); Sodium 135 mmol/L (137-145); Total Protein 7.5 g/dL (6.3-8.2)
== END ==
PROVIDERS: PCP Family Medicine; Referring Provider Family Medicine; Visit Provider Family Medicine
DX: Z00.00 Encounter for general adult medical examination without abnormal findings (principal); I10 Essential (primary) hypertension; E78.2 Mixed hyperlipidemia
CPT/HCPCS: 36415; 80053

== ENCOUNTER → 2024-08-20 13:20 | Outpatient (CLI) | payer MEDICARE, OTHER, SELFPAY ==
--- NOTE | 2024-08-20 13:21 | DI.RAD.S_ITS ---
PROCEDURE: XR KNEE LT 3V INDICATIONS: Medial knee pain TECHNIQUE: 3 views of the knee were acquired. COMPARISON: None. FINDINGS: Mild degenerative changes of the left knee with joint space narrowing small osteophytes in the medial compartment. Lateral and patellofemoral compartments within normal limits. No radiographic evidence of fracture, dislocation, knee joint effusion, or high attenuation soft tissue foreign body. IMPRESSION: Mild degenerative changes of the left knee medial compartment. Dictated by: Sonu Velázquez M.D. on 08/21/2024 at 8:24 Approved by: Sonu Velázquez M.D. on 08/21/2024 at 8:56
== END ==
PROVIDERS: Family Provider Family Medicine; PCP Family Medicine; Referring Provider Family Medicine; Visit Provider Family Medicine
DX: M25.562 Pain in left knee (principal); I25.10 Atherosclerotic heart disease of native coronary artery without angina pectoris
CPT/HCPCS: 73562

== ENCOUNTER → 2024-08-28 14:59 | Outpatient (CLI) | payer MEDICARE, OTHER, SELFPAY ==
--- NOTE | 2024-08-28 15:30 | DI.NM.S_ITS ---
PROCEDURE: NM EXERCISE TREADMILL NON NUC COMPARISON: None. INDICATIONS: CAD, HTN HLD FINDINGS: Patient exercised per the standard [facility] protocol. Total exercise time was 9 minutes 10 seconds. Test terminated secondary to muscle pain. Maximum heart rate is 125 bpm which is 84% of max predicted heart rate. Maximum blood pressure was 170/[place] [address]. VENICE -32%. Maximum METS is 9.9. No ischemic changes noted. Occasional PAC and PVCs present. No chest pains voiced. Normal heart rate and blood pressure response to exercise. IMPRESSION: 1. Nondiagnostic exercise treadmill stress test due to inability to reach target heart rate. Dictated by: Juvenal Ornelas M.D. on 08/31/2024 at 16:24 Approved by: Juvenal Ornelas M.D. on 08/31/2024 at 16:26
== END ==
PROVIDERS: Family Provider Family Medicine; PCP Family Medicine; Referring Provider Family Medicine; Visit Provider Family Medicine
DX: I25.10 Atherosclerotic heart disease of native coronary artery without angina pectoris (principal); E78.2 Mixed hyperlipidemia; I10 Essential (primary) hypertension
CPT/HCPCS: 93017

== ENCOUNTER 2024-10-19 09:00 | Outpatient (RCR) | payer MEDICARE, OTHER, SELFPAY ==
--- NOTE | 2024-03-24 17:43 | PT.OIE ---
Current Diagnoses Cutaneous abscess, unspecified (03/24/24) Pain in left upper arm (03/24/24) Pain in left foot (03/24/24) Abnormal posture (03/24/24) Other symptoms and signs involving the nervous system (03/24/24) Weakness (03/24/24) Past Medical History (Last Updated 01/28/24 @ 09:11 by Sandy Nayak DO) Abnormal lung examination Chicken pox (1956) Chronic back pain (1979) Encounter for subsequent annual wellness visit (AWV) in Medicare patient Hayfever (2004) Measles (1960) Mild intermittent asthma without complication (09/30/15) Mixed hyperlipidemia (09/30/15) Mumps (1957) Onychomycosis Viral URI with cough Past Surgical History (Last Reviewed 02/12/23 @ 13:17 by Kranthi Ramos MD) Anesthesia No history of previous surgery (06/2015) Status post carpal tunnel release Visit Care Team Role Provider Type Sandy Nayak DO Attending Provider Physician Family Provider Primary Care Provider Referring Provider Specialty: [facility] Address: [address] [place] [address], [address], [facility] Email: [email or web address] Physical Therapy Initial Evaluation PT-OP-A Visit Information Start: 03/12/24 11:29 Freq: Status: Active Protocol: Document 03/24/24 07:34 [facility] (Rec: 03/24/24 09:04 [facility] [id number]) Out-Patient Physical Therapy Visit Information Visit Information Visit Type Initial Evaluation Visit Note 12/11 Visit Start Time 08:20 Visit Stop Time 09:04 Visit Number 1 Number of CHIMNEY SWEEPER Visits 0 PT-OP-B Current Condition Start: 03/12/24 11:29 Freq: Status: Active Protocol: Document 03/24/24 07:34 [facility] (Rec: 03/24/24 09:04 [facility] [id number]) Current Condition History of Current Condition Current Complaints L foot pain, L shoulder pain, LBP History of Current Condition Pt reports L foot was really a problem for a couple months but is better. Unsure what started the foot pain. Foot pain was on plantar and dorsal surface sometimes. He uses superfeet. Pain was around base of 1st [place]. Reports some toe walking as a kid. He put new superfeet in his shoes and that helped. [place] really hurt the next day and had pain w/walks. He has one pair of shoes that are more comfortable. He has L shoulder pain that is also a little better. He does have some lat shoulder pain that has been chronic. He does his band exercises and does notice it some w/abd and Hadd. SInce last bout of PT, back has been doing pretty good overalll. No referred pain. He does still have some difficulty w/reaching LLE. Treatment Goals Patient/Caregiver Goals reach L foot easier, less pain in L shoulder w/workouts and heavy work on boat etc. PT-OP-C Subjective Start: 03/12/24 11:29 Freq: Status: Active Protocol: Document 03/24/24 07:34 [facility] (Rec: 03/24/24 12:15 [facility] [id number]) Patient Questionnaires Foot & Ankle Ability Measure- ADL and Sports FAAM-ADL Score 69/84 FAAM-Sport Score 22/28 Lower Extremity Functional Scale LEFS Score 68/80 Quick Dash- Upper Extremity Quick Dash UE Score 22.7 PT-OP-J Posture/Palpation/Skin Start: 03/12/24 11:29 Freq: Status: Active Protocol: Document 03/24/24 07:34 [facility] (Rec: 03/24/24 09:04 [facility] [id number]) Posture Evaluation [facility] Postural Classification System Elbow Flexion Test 1 Lumbar Protective Mechanism Left AP 0 Lumbar Protective Mechanism Right AP 0 Lumbar Protective Mechanism Left PA 1 Lumbar Protective Mechanism Right PA 2 Comments Posture Comments toes out more on LLE, L iliac crest mildly higher; L scap abd, fwd tip PT-OP-K Range of Motion Start: 03/12/24 11:29 Freq: Status: Active Protocol: Document 03/24/24 07:34 [facility] (Rec: 03/24/24 09:04 [facility] [id number]) Shoulder Goniometric Range of Motion Shoulder Right Active Flexion 136 Extension 61 Abduction 180 External Rotation at 90 degrees 78 Abduction Internal Rotation Behind Back (text) T10 Left Active Flexion 139 Extension 49 Abduction 118 External Rotation at 90 degrees 56 Abduction Internal Rotation Behind Back (text) T9 Comments pain abd, 90/90 ER and ext tight Ankle and Foot Goniometric Range of Motion Ankle and Foot Right Active Dorsiflexion with Knee Flexed 0 Dorsiflexion with Knee Extended 4 Plantarflexion 42 Inversion 24 Eversion 8 Comments lacking DF to neutral in knee ext position Left Active Dorsiflexion with Knee Flexed 4 Dorsiflexion with Knee Extended 12 Plantarflexion 40 Inversion 26 Eversion 11 Comments lacking DF to neutral in knee ext position PT-OP-L Special Tests Start: 03/12/24 11:29 Freq: Status: Active Protocol: Document 03/24/24 07:34 [facility] (Rec: 03/24/24 09:04 [facility] [id number]) Special Tests Lumbar Spine Special Tests Slump Test Results slight more Hs tension Shoulder Special Tests Durant Dimas Impingement Test Results positive L Neer Impingement Test Results minor pain at end range Morris Test Test Results neg L Speed's Biceps Test Results positive L Yergason's Biceps Test Results neg Empty Can Test Results positve Drop Arm Rotator Cuff Test Results neg Sulcus Test Results neg AC Joint Compression Test Results neg Neural Special Tests- Upper Body Median Nerve Tension Test Results neg L Radial Nerve Tension Test Results positive L Ulnar Nerve Tension Test Results neg L PT-OP-M Strength Start: 03/12/24 11:29 Freq: Status: Active Protocol: Document 03/24/24 07:34 [facility] (Rec: 03/24/24 09:04 [facility] [id number]) Shoulder Strength Shoulder Manual Muscle Testing Left Flexion 4+ Good+ Extension 5 Normal Abduction (C5) 3 Fair External Rotation 5 Normal Internal Rotation 5 Normal Comments 5/5 elbow flex, ext, sup, pron Ankle/Foot Strength Ankle and Foot Manual Muscle Testing Right Dorsiflexion (L4) 5 Normal Inversion 5 Normal Eversion (S1) 5 Normal Left Dorsiflexion (L4) 4+ Good+ Inversion 4+ Good+ Eversion (S1) 5 Normal Toe Strength Toe Manual Muscle Testing Right Flexion 4+ Good+ Extension 4+ Good+ Left Flexion 4+ Good+ Extension 4 Good Comments all toes tested-pain in foot w /flex PT-OP-Q Treatments Start: 03/12/24 11:29 Freq: Status: Active Protocol: Document 03/24/24 07:34 [facility] (Rec: 03/24/24 09:04 [facility] [id number]) Self-Care/Home Management Treatment Education Other Education 8 min: discussed w/pt wear down of current shoes and considering new shoes to improve foot position to offload forefoot. Demonstration of wear down. Discussed w/pt re: posture of shoulder still off and ribcage dec mobility PT-OP-T Assessment and Plan Start: 03/12/24 11:29 Freq: Status: Active Protocol: Document 03/24/24 07:34 [facility] (Rec: 03/24/24 09:04 [facility] [id number]) Physical Therapy Assessment Rehab Potential Rehabilitation Potential Good Evaluation Complexity Number of Personal Factors/Comorbidities 3 or More Number of Body Systems Impaired 4 or More Clinical Presentation at Evaluation Evolving Impairments Impairments Balance,Functional Activities, Gait,Pain,Posture,ROM,Soft Tissue Mobility,Strength Goals mobility [facility] Goal (LTG) Pt will report no difficulty w /reaching L foot in shower or donning/doff shoes LTG Duration 06/16 strength Short Term Goal (STG) pt will be indep w/HEP Certified Nuclear Medicine Technologist Goal (LTG) Pt will score at least 5/5 on all BLE and UE MMT and at least 3/5 LPM in all planes to show improved stability to allow greater ease in daily activities. LTG Duration 06/16 ROM Short Term Goal (STG) pt will have B DF to at least 4 in knee ext position to dec tension on foot. STG Duration 05/17 Chcf Goal (LTG) Pt will have full L shoulder ROM w/o inc pain LTG Duration 06/16 activities Short Term Goal (STG) Pt will be able to walk in any of his appropriate shoes w/o inc pain STG Duration 05/11 Certified Nuclear Medicine Technologist Goal (LTG) Pt will be able to do all of exercise program w/o inc pain and do all of heavy work around house/on boat w/o inc pain LTG Duration 06/16 Assessment Summary Assessment Pt presents w/mult complaints including LBP, L forefoot pain , L shoulder pain. L shoulder pain, pt did a couple PT sessions that improved it a year ago but does cont to have pain consistant w/radial n tension & tendinosis. L forefoot pain which may be related to wear of shoes along w/signfiicant calf tightness and dec foot mobility. LBP which is chronic in nature w/ cont dec core stabiltiy overall. He would benefit from skilled PT to address these issues and dec pain making daily activities easier and less limited. Physical Therapy Plan Frequency and Duration Frequency of Treatment 1-2x/wk Duration of treatment (weeks) 12 Plan of Care Start Date 03/24/24 Plan of Care End Date 06/16/24 Therapeutic Interventions Therapeutic Interventions Balance Training,Gait Training ,Home Exercise Program,Joint Mobilizations,Manual Therapy, Neuromuscular Re-education, Orthotic/Prosthetic Management ,Patient/Caregiver Education, Self-Care/Home Management,Soft Tissue Mobilization,Taping, Therapeutic Activities, Therapeutic Exercises Modalities Cold Pack/Ice Massage,Electric Stimulation,Hot Packs Next Visit Focus/Plan Next Note Type Treatment Note Next Visit Plan manual for L foot mobility- foot stability exercises, calf stretching manual to L ribcage and L shoulder for improved mobility & give open book, tspine mobility, scap stability exercises work manual on pelvis level and hip mobility
--- NOTE | 2024-03-24 17:43 | PT.OPPOC ---
Physical, Occupational & Speech Therapy At [facility] Current Diagnoses Cutaneous abscess, unspecified (03/24/24) Pain in left upper arm (03/24/24) Pain in left foot (03/24/24) Abnormal posture (03/24/24) Other symptoms and signs involving the nervous system (03/24/24) Weakness (03/24/24) Visit Care Team Role Provider Type Sandy Nayak DO Attending Provider Physician Family Provider Primary Care Provider Referring Provider Specialty: [facility] Practice Address: [address] [place] [address], [address], [facility] Email: [email or web address] Plan Of Care PT-OP-T Assessment and Plan Start: 03/12/24 11:29 Freq: Status: Active Protocol: Document 03/24/24 07:34 [facility] (Rec: 03/24/24 09:04 [facility] [id number]) Physical Therapy Assessment Rehab Potential Rehabilitation Potential Good Evaluation Complexity Number of Personal Factors/Comorbidities 3 or More Number of Body Systems Impaired 4 or More Clinical Presentation at Evaluation Evolving Impairments Impairments Balance,Functional Activities, Gait,Pain,Posture,ROM,Soft Tissue Mobility,Strength Goals mobility Group Home Goal (LTG) Pt will report no difficulty w /reaching L foot in shower or donning/doff shoes LTG Duration 06/16 strength Short Term Goal (STG) pt will be indep w/HEP Facility Examiner Goal (LTG) Pt will score at least 5/5 on all BLE and UE MMT and at least 3/5 LPM in all planes to show improved stability to allow greater ease in daily activities. LTG Duration 06/16 ROM Short Term Goal (STG) pt will have B DF to at least 4 in knee ext position to dec tension on foot. STG Duration 05/17 Facility Examiner Goal (LTG) Pt will have full L shoulder ROM w/o inc pain LTG Duration 06/16 activities Short Term Goal (STG) Pt will be able to walk in any of his appropriate shoes w/o inc pain STG Duration 05/11 Group Home Goal (LTG) Pt will be able to do all of exercise program w/o inc pain and do all of heavy work around house/on boat w/o inc pain LTG Duration 06/16 Assessment Summary Assessment Pt presents w/mult complaints including LBP, L forefoot pain , L shoulder pain. L shoulder pain, pt did a couple PT sessions that improved it a year ago but does cont to have pain consistant w/radial n tension & tendinosis. L forefoot pain which may be related to wear of shoes along w/signfiicant calf tightness and dec foot mobility. LBP which is chronic in nature w/ cont dec core stabiltiy overall. He would benefit from skilled PT to address these issues and dec pain making daily activities easier and less limited. Physical Therapy Plan Frequency and Duration Frequency of Treatment 1-2x/wk Duration of treatment (weeks) 12 Plan of Care Start Date 03/24/24 Plan of Care End Date 06/16/24 Therapeutic Interventions Therapeutic Interventions Balance Training,Gait Training ,Home Exercise Program,Joint Mobilizations,Manual Therapy, Neuromuscular Re-education, Orthotic/Prosthetic Management ,Patient/Caregiver Education, Self-Care/Home Management,Soft Tissue Mobilization,Taping, Therapeutic Activities, Therapeutic Exercises Modalities Cold Pack/Ice Massage,Electric Stimulation,Hot Packs Next Visit Focus/Plan Next Note Type Treatment Note Next Visit Plan manual for L foot mobility- foot stability exercises, calf stretching manual to L ribcage and L shoulder for improved mobility & give open book, tspine mobility, scap stability exercises work manual on pelvis level and hip mobility Plan of Care Dates Plan of Care Start Date 03/24/24 Plan of Care End Date 06/16/24 Electronically Signed by: Valentine Olivera, PT 03/24/24 [id number] If you are in agreement with this Plan of Care, please return a signed and dated copy. I have reviewed this Plan of Care and certify that the skilled therapy services above are required to meet the patient?s needs. Physician Signature Date Printed Name and Credentials Clinical Instructor Signature Printed Name and Credentials
--- NOTE | 2024-03-26 09:03 | PT.OTN ---
Current Diagnoses Cutaneous abscess, unspecified (03/26/24) Pain in left upper arm (03/26/24) Pain in left foot (03/26/24) Abnormal posture (03/26/24) Other symptoms and signs involving the nervous system (03/26/24) Weakness (03/26/24) Physical Therapy Treatment Note PT-OP-A Visit Information Start: 03/12/24 11:29 Freq: Status: Active Protocol: Document 03/26/24 08:15 [facility] (Rec: 03/26/24 09:03 [facility] [id number]) Out-Patient Physical Therapy Visit Information Visit Information Visit Type Treatment Note Visit Note 01/11 Visit Start Time 08:15 Visit Stop Time 08:56 Visit Number 2 Number of FIELD REPORTER Visits 0 PT-OP-B Current Condition Start: 03/12/24 11:29 Freq: Status: Active Protocol: Document 03/24/24 07:34 [facility] (Rec: 03/24/24 09:04 [facility] [id number]) Current Condition History of Current Condition Current Complaints L foot pain, L shoulder pain, LBP History of Current Condition Pt reports L foot was really a problem for a couple months but is better. Unsure what started the foot pain. Foot pain was on plantar and dorsal surface sometimes. He uses superfeet. Pain was around base of 1st [place]. Reports some toe walking as a kid. He put new superfeet in his shoes and that helped. [place] really hurt the next day and had pain w/walks. He has one pair of shoes that are more comfortable. He has L shoulder pain that is also a little better. He does have some lat shoulder pain that has been chronic. He does his band exercises and does notice it some w/abd and Hadd. SInce last bout of PT, back has been doing pretty good overalll. No referred pain. He does still have some difficulty w/reaching LLE. Treatment Goals Patient/Caregiver Goals reach L foot easier, less pain in L shoulder w/workouts and heavy work on boat etc. PT-OP-C Subjective Start: 03/12/24 11:29 Freq: Status: Active Protocol: Document 03/26/24 08:15 [facility] (Rec: 03/26/24 09:03 [facility] [id number]) OP-PT Subjective Patient Comments Patient Comments Pt ordered new shoes. after yoshi was hanging art on feet for a couple hoursa nd foot was really hurting. PT-OP-J Posture/Palpation/Skin Start: 03/12/24 11:29 Freq: Status: Active Protocol: Document 03/24/24 07:34 [facility] (Rec: 03/24/24 09:04 [facility] [id number]) Posture Evaluation [facility] Postural Classification System Elbow Flexion Test 1 Lumbar Protective Mechanism Left AP 0 Lumbar Protective Mechanism Right AP 0 Lumbar Protective Mechanism Left PA 1 Lumbar Protective Mechanism Right PA 2 Comments Posture Comments toes out more on LLE, L iliac crest mildly higher; L scap abd, fwd tip PT-OP-K Range of Motion Start: 03/12/24 11:29 Freq: Status: Active Protocol: Document 03/24/24 07:34 [facility] (Rec: 03/24/24 09:04 [facility] [id number]) Shoulder Goniometric Range of Motion Shoulder Right Active Flexion 136 Extension 61 Abduction 180 External Rotation at 90 degrees 78 Abduction Internal Rotation Behind Back (text) T10 Left Active Flexion 139 Extension 49 Abduction 118 External Rotation at 90 degrees 56 Abduction Internal Rotation Behind Back (text) T9 Comments pain abd, 90/90 ER and ext tight Ankle and Foot Goniometric Range of Motion Ankle and Foot Right Active Dorsiflexion with Knee Flexed 0 Dorsiflexion with Knee Extended 4 Plantarflexion 42 Inversion 24 Eversion 8 Comments lacking DF to neutral in knee ext position Left Active Dorsiflexion with Knee Flexed 4 Dorsiflexion with Knee Extended 12 Plantarflexion 40 Inversion 26 Eversion 11 Comments lacking DF to neutral in knee ext position PT-OP-L Special Tests Start: 03/12/24 11:29 Freq: Status: Active Protocol: Document 03/24/24 07:34 [facility] (Rec: 03/24/24 09:04 [facility] [id number]) Special Tests Lumbar Spine Special Tests Slump Test Results slight more Hs tension Shoulder Special Tests Durant Dimas Impingement Test Results positive L Neer Impingement Test Results minor pain at end range Holt Test Test Results neg L Speed's Biceps Test Results positive L Yergason's Biceps Test Results neg Empty Can Test Results positve Drop Arm Rotator Cuff Test Results neg Sulcus Test Results neg AC Joint Compression Test Results neg Neural Special Tests- Upper Body Median Nerve Tension Test Results neg L Radial Nerve Tension Test Results positive L Ulnar Nerve Tension Test Results neg L PT-OP-M Strength Start: 03/12/24 11:29 Freq: Status: Active Protocol: Document 03/24/24 07:34 [facility] (Rec: 03/24/24 09:04 [facility] [id number]) Shoulder Strength Shoulder Manual Muscle Testing Left Flexion 4+ Good+ Extension 5 Normal Abduction (C5) 3 Fair External Rotation 5 Normal Internal Rotation 5 Normal Comments 5/5 elbow flex, ext, sup, pron Ankle/Foot Strength Ankle and Foot Manual Muscle Testing Right Dorsiflexion (L4) 5 Normal Inversion 5 Normal Eversion (S1) 5 Normal Left Dorsiflexion (L4) 4+ Good+ Inversion 4+ Good+ Eversion (S1) 5 Normal Toe Strength Toe Manual Muscle Testing Right Flexion 4+ Good+ Extension 4+ Good+ Left Flexion 4+ Good+ Extension 4 Good Comments all toes tested-pain in foot w /flex PT-OP-Q Treatments Start: 03/12/24 11:29 Freq: Status: Active Protocol: Document 03/26/24 08:15 [facility] (Rec: 03/26/24 09:03 [facility] [id number]) Therapeutic Exercises Supine Exercises foam roll Supine Exercise Name flex, Habd, abd Side bilateral Reps/Minutes 8 ea Sidelying Exercises open book Side bilateral Reps/Minutes 8 ea Standing Exercises stretch Standing Exercise Name 1. gastroc 2. soleus Side bilateral Reps/Minutes 1 min ea Manual Therapy Treatment Soft Tissue Mobilization plantar fascia Body Location L Mobilization Type Rolling Intensity/Depth Moderate lats Body Location l Mobilization Type Sustained Pressure Intensity/Depth Moderate Body Position Sidelying Joint Mobilizations MTP Joint 1st AP FM midfoot Comments navicular and cuneiform med FM rearfoot Comments calcaneal & talar distractioN FM SC Comments L caudal FM ribs Comments L 1-3 PA s/l FM PT-OP-T Assessment and Plan Start: 03/12/24 11:29 Freq: Status: Active Protocol: Document 03/26/24 08:15 [facility] (Rec: 03/26/24 09:03 [facility] [id number]) Physical Therapy Assessment Goals mobility Usp Goal (LTG) Pt will report no difficulty w /reaching L foot in shower or donning/doff shoes LTG Duration 716 strength Short Term Goal (STG) pt will be indep w/HEP Shoe Laster Goal (LTG) Pt will score at least 5/5 on all BLE and UE MMT and at least 3/5 LPM in all planes to show improved stability to allow greater ease in daily activities. LTG Duration 06/16 ROM Short Term Goal (STG) pt will have B DF to at least 4 in knee ext position to dec tension on foot. STG Duration 05/17 Usp Goal (LTG) Pt will have full L shoulder ROM w/o inc pain LTG Duration 06/16 activities Short Term Goal (STG) Pt will be able to walk in any of his appropriate shoes w/o inc pain STG Duration 05/11 Shoe Laster Goal (LTG) Pt will be able to do all of exercise program w/o inc pain and do all of heavy work around house/on boat w/o inc pain LTG Duration 06/16 Assessment Summary Assessment Pt did well with manual and reports relief w/foot work. he has very signifciantly tight midfoot along w/calf and PF and 1st MT. Good response to exercsies. no inc pain. Physical Therapy Plan Frequency and Duration Frequency of Treatment 1-2x/wk Duration of treatment (weeks) 12 Plan of Care Start Date 03/24/24 Plan of Care End Date 06/16/24 Next Visit Focus/Plan Next Note Type Treatment Note Next Visit Plan manual for L foot mobility- foot stability exercises, calf stretching manual to L ribcage and L shoulder for improved mobility & give open book, tspine mobility, scap stability exercises work manual on pelvis level and hip mobility
--- NOTE | 2024-04-01 09:00 | PT.OTN ---
Current Diagnoses Cutaneous abscess, unspecified (04/01/24) Pain in left upper arm (04/01/24) Pain in left foot (04/01/24) Abnormal posture (04/01/24) Other symptoms and signs involving the nervous system (04/01/24) Weakness (04/01/24) Physical Therapy Treatment Note PT-OP-A Visit Information Start: 03/12/24 11:29 Freq: Status: Active Protocol: Document 04/01/24 08:16 SP (Rec: 04/01/24 09:43 SP [id number]) Out-Patient Physical Therapy Visit Information Visit Information Visit Type Treatment Note Visit Note 02/08 Visit Start Time 08:16 Visit Stop Time 09:00 Visit Number 3 Number of NETSUITE DEVELOPER Visits 1 PT-OP-B Current Condition Start: 03/12/24 11:29 Freq: Status: Active Protocol: Document 03/24/24 07:34 LR (Rec: 03/24/24 09:04 [facility] [id number]) Current Condition History of Current Condition Current Complaints L foot pain, L shoulder pain, LBP History of Current Condition Pt reports L foot was really a problem for a couple months but is better. Unsure what started the foot pain. Foot pain was on plantar and dorsal surface sometimes. He uses superfeet. Pain was around base of 1st MT. Reports some toe walking as a kid. He put new superfeet in his shoes and that helped. [place] really [place] the [place] day and had pain w/walks. He has one pair of shoes that are more comfortable. He has L shoulder pain that is also a little better. He does have some lat shoulder pain that has been chronic. He does his band exercises and does notice it some w/abd and Hadd. SInce last bout of PT, back has been doing pretty good overalll. No referred pain. He does still have some difficulty w/reaching LLE. Treatment Goals Patient/Caregiver Goals reach L foot easier, less pain in L shoulder w/workouts and heavy work on boat etc. PT-OP-C Subjective Start: 03/12/24 11:29 Freq: Status: Active Protocol: Document 04/01/24 08:16 SP (Rec: 04/01/24 09:43 SP [id number]) OP-PT Subjective Patient Comments Patient Comments Pt reports updated his superfeet, hiking and shoes and now that progressing time to break in feeling better on walks in trails up to 40 min. CHallenge supine resisted OH not getting full range. Base L great toe. PT-OP-J Posture/Palpation/Skin Start: 03/12/24 11:29 Freq: Status: Active Protocol: Document 03/24/24 07:34 [facility] (Rec: 03/24/24 09:04 [facility] [id number]) Posture Evaluation [facility] Postural Classification System Elbow Flexion Test 1 Lumbar Protective Mechanism Left AP 0 Lumbar Protective Mechanism Right AP 0 Lumbar Protective Mechanism Left PA 1 Lumbar Protective Mechanism Right PA 2 Comments Posture Comments toes out more on LLE, L iliac crest mildly higher; L scap abd, fwd tip PT-OP-K Range of Motion Start: 03/12/24 11:29 Freq: Status: Active Protocol: Document 03/24/24 07:34 [facility] (Rec: 03/24/24 09:04 [facility] [id number]) Shoulder Goniometric Range of Motion Shoulder Right Active Flexion 136 Extension 61 Abduction 180 External Rotation at 90 degrees 78 Abduction Internal Rotation Behind Back (text) T10 Left Active Flexion 139 Extension 49 Abduction 118 External Rotation at 90 degrees 56 Abduction Internal Rotation Behind Back (text) T9 Comments pain abd, 90/90 ER and ext tight Ankle and Foot Goniometric Range of Motion Ankle and Foot Right Active Dorsiflexion with Knee Flexed 0 Dorsiflexion with Knee Extended 4 Plantarflexion 42 Inversion 24 Eversion 8 Comments lacking DF to neutral in knee ext position Left Active Dorsiflexion with Knee Flexed 4 Dorsiflexion with Knee Extended 12 Plantarflexion 40 Inversion 26 Eversion 11 Comments lacking DF to neutral in knee ext position PT-OP-L Special Tests Start: 03/12/24 11:29 Freq: Status: Active Protocol: Document 03/24/24 07:34 [facility] (Rec: 03/24/24 09:04 [facility] [id number]) Special Tests Lumbar Spine Special Tests Slump Test Results slight more Hs tension Shoulder Special Tests Durant Dimas Impingement Test Results positive L Neer Impingement Test Results minor pain at end range Fajardo Test Test Results neg L Speed's Biceps Test Results positive L Yergason's Biceps Test Results neg Empty Can Test Results positve Drop Arm Rotator Cuff Test Results neg Sulcus Test Results neg AC Joint Compression Test Results neg Neural Special Tests- Upper Body Median Nerve Tension Test Results neg L Radial Nerve Tension Test Results positive L Ulnar Nerve Tension Test Results neg L PT-OP-M Strength Start: 03/12/24 11:29 Freq: Status: Active Protocol: Document 03/24/24 07:34 [facility] (Rec: 03/24/24 09:04 [facility] [id number]) Shoulder Strength Shoulder Manual Muscle Testing Left Flexion 4+ Good+ Extension 5 Normal Abduction (C5) 3 Fair External Rotation 5 Normal Internal Rotation 5 Normal Comments 5/5 elbow flex, ext, sup, pron Ankle/Foot Strength Ankle and Foot Manual Muscle Testing Right Dorsiflexion (L4) 5 Normal Inversion 5 Normal Eversion (S1) 5 Normal Left Dorsiflexion (L4) 4+ Good+ Inversion 4+ Good+ Eversion (S1) 5 Normal Toe Strength Toe Manual Muscle Testing Right Flexion 4+ Good+ Extension 4+ Good+ Left Flexion 4+ Good+ Extension 4 Good Comments all toes tested-pain in foot w /flex PT-OP-Q Treatments Start: 03/12/24 11:29 Freq: Status: Active Protocol: Document 04/01/24 08:16 SP (Rec: 04/01/24 09:43 SP [id number]) Therapeutic Exercises Supine Exercises ABD /c ER Supine Exercise Name assist into AAROM ER Side left Resistance 3#>5# DB Reps/Minutes 5reps> 10 reps Comments improved ER L shld Supine Exercise Name 1. SA 2. FF 3. Ws- trial for improve ROM Resistance 1. 5# DB 2. 3# DB 3. AROM Reps/Minutes 10 reps each Comments progress into OH ROM Sidelying Exercises open book Sidelying Exercise Name end tx cool down scapular ROM Side bilateral Reps/Minutes 8 ea Comments tactile cues for scap glide/TS rot, not humeral ext strain distal tendons Manual Therapy Treatment Soft Tissue Mobilization L shld Body Location distal pec, Subscap, mid Lat, SA, prox tricep, deltoid Mobilization Type Strumming plantar fascia Body Location L Mobilization Type Rolling,Sustained Pressure, Other Intensity/Depth Moderate Comments STMs, pressure /c 1st great toe flex/ext Joint Mobilizations L GH jt Direction posterior, inferior glide Grade III Body Position Hooklying Comments /c FM FF MTP Joint 1st AP /c FM Comments manual AP/PA/Rot, ed self midfoot Comments navicular and cuneiform med FM rearfoot Comments calcaneal & talar distractioN FM Self-Care/Home Management Treatment Education Other Education Time spent ed post manual for self application L plantarfascia STMs and MWM toe flex/ext. Use of DB for warm up AAROM into FF, ABD/ ER before use supine OH TB. PT-OP-T Assessment and Plan Start: 03/12/24 11:29 Freq: Status: Active Protocol: Document 04/01/24 08:16 SP (Rec: 04/01/24 09:43 SP [id number]) Physical Therapy Assessment Goals mobility Snf Goal (LTG) Pt will report no difficulty w /reaching L foot in shower or donning/doff shoes LTG Duration 06/16 strength Short Term Goal (STG) pt will be indep w/HEP Mold Loft Worker Goal (LTG) Pt will score at least 5/5 on all BLE and UE MMT and at least 3/5 LPM in all planes to show improved stability to allow greater ease in daily activities. LTG Duration 06/16 ROM Short Term Goal (STG) pt will have B DF to at least 4 in knee ext position to dec tension on foot. STG Duration 05/17 Snf Goal (LTG) Pt will have full L shoulder ROM w/o inc pain LTG Duration 06/16 activities Short Term Goal (STG) Pt will be able to walk in any of his appropriate shoes w/o inc pain STG Duration 05/11 Snf Goal (LTG) Pt will be able to do all of exercise program w/o inc pain and do all of heavy work around house/on boat w/o inc pain LTG Duration 06/16 Assessment Summary Assessment Pt responded well to Manual significant reduction tightness in L great toe flex/ ext mobility and noted gains L shld into FF supine than carryover standing by end tx almost full range pnfree range , not measured. Physical Therapy Plan Frequency and Duration Frequency of Treatment 1-2x/wk Duration of treatment (weeks) 12 Plan of Care Start Date 03/24/24 Plan of Care End Date 06/16/24 Therapeutic Interventions Therapeutic Interventions Balance Training,Gait Training ,Home Exercise Program,Joint Mobilizations,Manual Therapy, Neuromuscular Re-education, Orthotic/Prosthetic Management ,Patient/Caregiver Education, Self-Care/Home Management,Soft Tissue Mobilization,Taping, Therapeutic Activities, Therapeutic Exercises Modalities Cold Pack/Ice Massage,Electric Stimulation,Hot Packs Next Visit Focus/Plan Next Note Type Treatment Note Next Visit Plan manual for L foot mobility- foot stability exercises, calf stretching manual to L ribcage and L shoulder for improved mobility & give open book, tspine mobility, scap stability exercises work manual on pelvis level and hip mobility
--- NOTE | 2024-04-14 14:21 | PT.OTN ---
Current Diagnoses Cutaneous abscess, unspecified (04/14/24) Pain in left upper arm (04/14/24) Pain in left foot (04/14/24) Abnormal posture (04/14/24) Other symptoms and signs involving the nervous system (04/14/24) Weakness (04/14/24) Physical Therapy Treatment Note PT-OP-A Visit Information Start: 03/12/24 11:29 Freq: Status: Active Protocol: Document 04/14/24 08:16 [facility] (Rec: 04/14/24 14:21 [facility] [id number]) Out-Patient Physical Therapy Visit Information Visit Information Visit Type Treatment Note Visit Start Time 08:18 Visit Stop Time 09:00 Visit Number 4 Number of DIRECTOR GROUP SALES Visits 0 PT-OP-B Current Condition Start: 03/12/24 11:29 Freq: Status: Active Protocol: Document 03/24/24 07:34 [facility] (Rec: 03/24/24 09:04 [facility] [id number]) Current Condition History of Current Condition Current Complaints L foot pain, L shoulder pain, LBP History of Current Condition Pt reports L foot was really a problem for a couple months but is better. Unsure what started the foot pain. Foot pain was on plantar and dorsal surface sometimes. He uses superfeet. Pain was around base of 1st MT. Reports some toe walking as a kid. He put new superfeet in his shoes and that helped. [place] really [place] the [place] day and had pain w/walks. He has one pair of shoes that are more comfortable. He has L shoulder pain that is also a little better. He does have some lat shoulder pain that has been chronic. He does his band exercises and does notice it some w/abd and Hadd. SInce last bout of PT, back has been doing pretty good overalll. No referred pain. He does still have some difficulty w/reaching LLE. Treatment Goals Patient/Caregiver Goals reach L foot easier, less pain in L shoulder w/workouts and heavy work on boat etc. PT-OP-C Subjective Start: 03/12/24 11:29 Freq: Status: Active Protocol: Document 04/14/24 08:16 [facility] (Rec: 04/14/24 14:21 [facility] [id number]) OP-PT Subjective Patient Comments Patient Comments Pt reports he got his new shoes. He hurt it painting this weekend or doing something. He took ibuprofen to help. He feels like shoulder is doign btter. He has been concentrating on his shoulder and that helps. Back is hurting this AM but getting better already. Pt reports the massage work helped a lot PT-OP-J Posture/Palpation/Skin Start: 03/12/24 11:29 Freq: Status: Active Protocol: Document 03/24/24 07:34 [facility] (Rec: 03/24/24 09:04 [facility] [id number]) Posture Evaluation [facility] Postural Classification System Elbow Flexion Test 1 Lumbar Protective Mechanism Left AP 0 Lumbar Protective Mechanism Right AP 0 Lumbar Protective Mechanism Left PA 1 Lumbar Protective Mechanism Right PA 2 Comments Posture Comments toes out more on LLE, L iliac crest mildly higher; L scap abd, fwd tip PT-OP-K Range of Motion Start: 03/12/24 11:29 Freq: Status: Active Protocol: Document 03/24/24 07:34 [facility] (Rec: 03/24/24 09:04 [facility] [id number]) Shoulder Goniometric Range of Motion Shoulder Right Active Flexion 136 Extension 61 Abduction 180 External Rotation at 90 degrees 78 Abduction Internal Rotation Behind Back (text) T10 Left Active Flexion 139 Extension 49 Abduction 118 External Rotation at 90 degrees 56 Abduction Internal Rotation Behind Back (text) T9 Comments pain abd, 90/90 ER and ext tight Ankle and Foot Goniometric Range of Motion Ankle and Foot Right Active Dorsiflexion with Knee Flexed 0 Dorsiflexion with Knee Extended 4 Plantarflexion 42 Inversion 24 Eversion 8 Comments lacking DF to neutral in knee ext position Left Active Dorsiflexion with Knee Flexed 4 Dorsiflexion with Knee Extended 12 Plantarflexion 40 Inversion 26 Eversion 11 Comments lacking DF to neutral in knee ext position PT-OP-L Special Tests Start: 03/12/24 11:29 Freq: Status: Active Protocol: Document 03/24/24 07:34 [facility] (Rec: 03/24/24 09:04 [facility] [id number]) Special Tests Lumbar Spine Special Tests Slump Test Results slight more Hs tension Shoulder Special Tests Durant Dimas Impingement Test Results positive L Neer Impingement Test Results minor pain at end range [place] Test Test Results neg L Speed's Biceps Test Results positive L Yergason's Biceps Test Results neg Empty Can Test Results positve Drop Arm Rotator Cuff Test Results neg Sulcus Test Results neg AC Joint Compression Test Results neg Neural Special Tests- Upper Body Median Nerve Tension Test Results neg L Radial Nerve Tension Test Results positive L Ulnar Nerve Tension Test Results neg L PT-OP-M Strength Start: 03/12/24 11:29 Freq: Status: Active Protocol: Document 03/24/24 07:34 [facility] (Rec: 03/24/24 09:04 [facility] [id number]) Shoulder Strength Shoulder Manual Muscle Testing Left Flexion 4+ Good+ Extension 5 Normal Abduction (C5) 3 Fair External Rotation 5 Normal Internal Rotation 5 Normal Comments 5/5 elbow flex, ext, sup, pron Ankle/Foot Strength Ankle and Foot Manual Muscle Testing Right Dorsiflexion (L4) 5 Normal Inversion 5 Normal Eversion (S1) 5 Normal Left Dorsiflexion (L4) 4+ Good+ Inversion 4+ Good+ Eversion (S1) 5 Normal Toe Strength Toe Manual Muscle Testing Right Flexion 4+ Good+ Extension 4+ Good+ Left Flexion 4+ Good+ Extension 4 Good Comments all toes tested-pain in foot w /flex PT-OP-Q Treatments Start: 03/12/24 11:29 Freq: Status: Active Protocol: Document 04/14/24 08:16 [facility] (Rec: 04/14/24 14:21 [facility] [id number]) Therapeutic Exercises Supine Exercises core Supine Exercise Name DL isometric Side bilateral Reps/Minutes 30 sec Comments inc time for set up Prone Exercises plank Side bilateral Reps/Minutes 30 sec Comments inc time for set up Sidelying Exercises sideplank Side bilateral Reps/Minutes 30 sec ea Comments set up time ea side Manual Therapy Treatment Soft Tissue Mobilization L shld Body Location L teres, pec, Mobilization Type Rolling,Sustained Pressure Intensity/Depth Moderate Comments w/flex and rot plantar fascia Body Location L Mobilization Type Rolling,Sustained Pressure, Other Intensity/Depth Moderate Comments STMs, pressure /c 1st great toe flex/ext Joint Mobilizations L GH jt Comments L post translatin and glide, inf translation and glide, lat gapping, IR at 90 w/post glide FM MTP Joint 1st AP FM ribs Comments external torsion L rib 6 FM Neuro Re-Education Treatment Other Activities facilation Reps/Duration 6 min Comments at end range w/gentle traction for jt mechanics after all GH mobs PNF Reps/Duration 4 min Comments sustained hold w/mass flex pattern progressed to COI PT-OP-T Assessment and Plan Start: 03/12/24 11:29 Freq: Status: Active Protocol: Document 04/14/24 08:16 [facility] (Rec: 04/14/24 14:21 [facility] [id number]) Physical Therapy Assessment Goals mobility Usp Goal (LTG) Pt will report no difficulty w /reaching L foot in shower or donning/doff shoes LTG Duration 06/16 strength Short Term Goal (STG) pt will be indep w/HEP Usp Goal (LTG) Pt will score at least 5/5 on all BLE and UE MMT and at least 3/5 LPM in all planes to show improved stability to allow greater ease in daily activities. LTG Duration 06/16 ROM Short Term Goal (STG) pt will have B DF to at least 4 in knee ext position to dec tension on foot. STG Duration 05/17 Usp Goal (LTG) Pt will have full L shoulder ROM w/o inc pain LTG Duration 06/16 activities Short Term Goal (STG) Pt will be able to walk in any of his appropriate shoes w/o inc pain STG Duration 05/11 Paraoptometric Goal (LTG) Pt will be able to do all of exercise program w/o inc pain and do all of heavy work around house/on boat w/o inc pain LTG Duration 06/16 Assessment Summary Assessment Pt had improved shoulder motion w/manual treatment. he did have dec cor stability noted w/exercises givent niesha and inc time needed for cueing and set up for form. Physical Therapy Plan Frequency and Duration Frequency of Treatment 1-2x/wk Duration of treatment (weeks) 12 Plan of Care Start Date 03/24/24 Plan of Care End Date 06/16/24 Next Visit Focus/Plan Next Note Type Treatment Note Next Visit Plan manual for L foot mobility- foot stability exercises, calf stretching manual to L ribcage and L shoulder for improved mobility & give open book, tspine mobility, scap stability exercises work manual on pelvis level and hip mobility
--- NOTE | 2024-04-28 08:14 | PT.OTN ---
Current Diagnoses Cutaneous abscess, unspecified (04/28/24) Pain in left upper arm (04/28/24) Pain in left foot (04/28/24) Abnormal posture (04/28/24) Other symptoms and signs involving the nervous system (04/28/24) Weakness (04/28/24) Physical Therapy Treatment Note PT-OP-A Visit Information Start: 03/12/24 11:29 Freq: Status: Active Protocol: Document 04/28/24 07:32 SP (Rec: 04/28/24 08:19 SP [id number]) Out-Patient Physical Therapy Visit Information Visit Information Visit Type Treatment Note Visit Start Time 07:32 Visit Stop Time 08:14 Visit Number 5 Number of FILM TESTS CHECKER Visits 1 PT-OP-B Current Condition Start: 03/12/24 11:29 Freq: Status: Active Protocol: Document 03/24/24 07:34 LR (Rec: 03/24/24 09:04 [facility] [id number]) Current Condition History of Current Condition Current Complaints L foot pain, L shoulder pain, LBP History of Current Condition Pt reports L foot was really a problem for a couple months but is better. Unsure what started the foot pain. Foot pain was on plantar and dorsal surface sometimes. He uses superfeet. Pain was around base of 1st MT. Reports some toe walking as a kid. He put new superfeet in his shoes and that helped. [place] really [place] the [place] day and had pain w/walks. He has one pair of shoes that are more comfortable. He has L shoulder pain that is also a little better. He does have some lat shoulder pain that has been chronic. He does his band exercises and does notice it some w/abd and Hadd. SInce last bout of PT, back has been doing pretty good overalll. No referred pain. He does still have some difficulty w/reaching LLE. Treatment Goals Patient/Caregiver Goals reach L foot easier, less pain in L shoulder w/workouts and heavy work on boat etc. PT-OP-C Subjective Start: 03/12/24 11:29 Freq: Status: Active Protocol: Document 04/28/24 07:32 SP (Rec: 04/28/24 08:19 SP [id number]) OP-PT Subjective Patient Comments Patient Comments Pt reports back stiff/ uncomfortable. States uses walking trails daily for warm up back. He states not going to perform ther ex stretching or exercises in PT as HEP on own, walking works for him and trialed online palates with which utilizes bands and feels helping. PT-OP-J Posture/Palpation/Skin Start: 03/12/24 11:29 Freq: Status: Active Protocol: Document 03/24/24 07:34 [facility] (Rec: 03/24/24 09:04 [facility] [id number]) Posture Evaluation [facility] Postural Classification System Elbow Flexion Test 1 Lumbar Protective Mechanism Left AP 0 Lumbar Protective Mechanism Right AP 0 Lumbar Protective Mechanism Left PA 1 Lumbar Protective Mechanism Right PA 2 Comments Posture Comments toes out more on LLE, L iliac crest mildly higher; L scap abd, fwd tip PT-OP-K Range of Motion Start: 03/12/24 11:29 Freq: Status: Active Protocol: Document 03/24/24 07:34 [facility] (Rec: 03/24/24 09:04 [facility] [id number]) Shoulder Goniometric Range of Motion Shoulder Right Active Flexion 136 Extension 61 Abduction 180 External Rotation at 90 degrees 78 Abduction Internal Rotation Behind Back (text) T10 Left Active Flexion 139 Extension 49 Abduction 118 External Rotation at 90 degrees 56 Abduction Internal Rotation Behind Back (text) T9 Comments pain abd, 90/90 ER and ext tight Ankle and Foot Goniometric Range of Motion Ankle and Foot Right Active Dorsiflexion with Knee Flexed 0 Dorsiflexion with Knee Extended 4 Plantarflexion 42 Inversion 24 Eversion 8 Comments lacking DF to neutral in knee ext position Left Active Dorsiflexion with Knee Flexed 4 Dorsiflexion with Knee Extended 12 Plantarflexion 40 Inversion 26 Eversion 11 Comments lacking DF to neutral in knee ext position PT-OP-L Special Tests Start: 03/12/24 11:29 Freq: Status: Active Protocol: Document 03/24/24 07:34 [facility] (Rec: 03/24/24 09:04 [facility] [id number]) Special Tests Lumbar Spine Special Tests Slump Test Results slight more Hs tension Shoulder Special Tests [place] Dimas Impingement Test Results positive L Neer Impingement Test Results minor pain at end range [place] Test Test Results neg L Speed's Biceps Test Results positive L Yergason's Biceps Test Results neg Empty Can Test Results positve Drop Arm Rotator Cuff Test Results neg Sulcus Test Results neg AC Joint Compression Test Results neg Neural Special Tests- Upper Body Median Nerve Tension Test Results neg L Radial Nerve Tension Test Results positive L Ulnar Nerve Tension Test Results neg L PT-OP-M Strength Start: 03/12/24 11:29 Freq: Status: Active Protocol: Document 03/24/24 07:34 [facility] (Rec: 03/24/24 09:04 [facility] [id number]) Shoulder Strength Shoulder Manual Muscle Testing Left Flexion 4+ Good+ Extension 5 Normal Abduction (C5) 3 Fair External Rotation 5 Normal Internal Rotation 5 Normal Comments 5/5 elbow flex, ext, sup, pron Ankle/Foot Strength Ankle and Foot Manual Muscle Testing Right Dorsiflexion (L4) 5 Normal Inversion 5 Normal Eversion (S1) 5 Normal Left Dorsiflexion (L4) 4+ Good+ Inversion 4+ Good+ Eversion (S1) 5 Normal Toe Strength Toe Manual Muscle Testing Right Flexion 4+ Good+ Extension 4+ Good+ Left Flexion 4+ Good+ Extension 4 Good Comments all toes tested-pain in foot w /flex PT-OP-Q Treatments Start: 03/12/24 11:29 Freq: Status: Active Protocol: Document 04/28/24 07:32 SP (Rec: 04/28/24 08:19 SP [id number]) Therapeutic Exercises Supine Exercises bridge Supine Exercise Name segmental Reps/Minutes 5 stretching Supine Exercise Name LTR, piriformis, Fig 4 Side bilateral Equipment Used PF/Fig 4 opp LE straight Reps/Minutes 2x30 each core Supine Exercise Name DL isometric Side bilateral Reps/Minutes 230 sec Comments inc time for set up Prone Exercises plank Prone Exercise Name forearm/feet Side bilateral Reps/Minutes 30 sec Comments inc time for set up, forefoot discomfort end time. Sidelying Exercises sideplank Side bilateral Reps/Minutes 15 sec ea Comments set up time ea side, challenge maintain on side open book Sidelying Exercise Name end tx cool down scapular ROM Side bilateral Reps/Minutes 8 ea Comments tactile cues for scap glide/TS rot, not humeral ext strain distal tendons Standing Exercises stretch Standing Exercise Name 1. gastroc 2. soleus 3. dynamic eccentric calf raises pause stretch Side bilateral Reps/Minutes 3 min total Other Exercises bird dog Reps/Minutes x2 child's pose, thread needle Other Exercise Name end tx Side bilateral Reps/Minutes 20 SH each side Manual Therapy Treatment Soft Tissue Mobilization plantar fascia Body Location L Mobilization Type Rolling,Sustained Pressure, Other Intensity/Depth Moderate Comments STMs, pressure /c 1st great toe flex/ext lats Body Location Lat, ES, Mobilization Type Sustained Pressure Intensity/Depth Moderate Body Position L Sidelying Comments MWM open book Joint Mobilizations MTP Joint L 1st AP FM midfoot Joint L Comments navicular and cuneiform med FM rearfoot Joint L Comments calcaneal & talar distractioN FM ribs Comments R rib 6-9 FM R rotation FM PT-OP-T Assessment and Plan Start: 03/12/24 11:29 Freq: Status: Active Protocol: Document 04/28/24 07:32 SP (Rec: 04/28/24 08:19 SP [id number]) Physical Therapy Assessment Goals mobility Skimmer Goal (LTG) Pt will report no difficulty w /reaching L foot in shower or donning/doff shoes LTG Duration 06/16 strength Short Term Goal (STG) pt will be indep w/HEP Retirement Goal (LTG) Pt will score at least 5/5 on all BLE and UE MMT and at least 3/5 LPM in all planes to show improved stability to allow greater ease in daily activities. LTG Duration 06/16 ROM Short Term Goal (STG) pt will have B DF to at least 4 in knee ext position to dec tension on foot. STG Duration 05/17 Skimmer Goal (LTG) Pt will have full L shoulder ROM w/o inc pain LTG Duration 06/16 activities Short Term Goal (STG) Pt will be able to walk in any of his appropriate shoes w/o inc pain STG Duration 05/11 Skimmer Goal (LTG) Pt will be able to do all of exercise program w/o inc pain and do all of heavy work around house/on boat w/o inc pain LTG Duration 06/16 Assessment Summary Assessment Pt improved ankle and scapular motion post manual. Good feedback mobility post stretching. Time for set up and top arm/trunk alignment during plank, noted ankle pressure discomfort during planks with shoes donned, discussed use footwear for support. Physical Therapy Plan Frequency and Duration Frequency of Treatment 1-2x/wk Duration of treatment (weeks) 12 Plan of Care Start Date 03/24/24 Plan of Care End Date 06/16/24 Therapeutic Interventions Therapeutic Interventions Balance Training,Gait Training ,Home Exercise Program,Joint Mobilizations,Manual Therapy, Neuromuscular Re-education, Orthotic/Prosthetic Management ,Patient/Caregiver Education, Self-Care/Home Management,Soft Tissue Mobilization,Taping, Therapeutic Activities, Therapeutic Exercises Modalities Cold Pack/Ice Massage,Electric Stimulation,Hot Packs Next Visit Focus/Plan Next Note Type Treatment Note Next Visit Plan Trial palates stability ther ex for potential compliance carryover home. PT POC: manual for L foot mobility-foot stability exercises, calf stretching manual to L ribcage and L shoulder for improved mobility , tspine mobility, scap stability exercises work manual on pelvis level and hip mobility
--- NOTE | 2024-05-05 09:43 | PT.OTN ---
Current Diagnoses Cutaneous abscess, unspecified (05/05/24) Pain in left upper arm (05/05/24) Pain in left foot (05/05/24) Abnormal posture (05/05/24) Other symptoms and signs involving the nervous system (05/05/24) Weakness (05/05/24) Physical Therapy Treatment Note PT-OP-A Visit Information Start: 03/12/24 11:29 Freq: Status: Active Protocol: Document 05/05/24 07:28 [facility] (Rec: 05/05/24 09:43 [facility] [id number]) Out-Patient Physical Therapy Visit Information Visit Information Visit Type Treatment Note Visit Start Time 07:30 Visit Stop Time 08:15 Visit Number 6 Number of SALES REPRESENTATIVE ADVERTISING Visits 0 PT-OP-B Current Condition Start: 03/12/24 11:29 Freq: Status: Active Protocol: Document 03/24/24 07:34 [facility] (Rec: 03/24/24 09:04 [facility] [id number]) Current Condition History of Current Condition Current Complaints L foot pain, L shoulder pain, LBP History of Current Condition Pt reports L foot was really a problem for a couple months but is better. Unsure what started the foot pain. Foot pain was on plantar and dorsal surface sometimes. He uses superfeet. Pain was around base of 1st [place]. Reports some toe walking as a kid. He put new superfeet in his shoes and that helped. [place] really [place] the [place] day and had pain w/walks. He has one pair of shoes that are more comfortable. He has L shoulder pain that is also a little better. He does have some lat shoulder pain that has been chronic. He does his band exercises and does notice it some w/abd and Hadd. SInce last bout of PT, back has been doing pretty good overalll. No referred pain. He does still have some difficulty w/reaching LLE. Treatment Goals Patient/Caregiver Goals reach L foot easier, less pain in L shoulder w/workouts and heavy work on boat etc. PT-OP-C Subjective Start: 03/12/24 11:29 Freq: Status: Active Protocol: Document 05/05/24 07:28 [facility] (Rec: 05/05/24 09:43 [facility] [id number]) OP-PT Subjective Patient Comments Patient Comments Foot is doing well, sometimes something hurts when moves some way. Shoulder is fine. Still has some restriction. Back is better. Took ibuprofen for 6 days and it improved. PT-OP-J Posture/Palpation/Skin Start: 03/12/24 11:29 Freq: Status: Active Protocol: Document 03/24/24 07:34 [facility] (Rec: 03/24/24 09:04 [facility] [id number]) Posture Evaluation [facility] Postural Classification System Elbow Flexion Test 1 Lumbar Protective Mechanism Left AP 0 Lumbar Protective Mechanism Right AP 0 Lumbar Protective Mechanism Left PA 1 Lumbar Protective Mechanism Right PA 2 Comments Posture Comments toes out more on LLE, L iliac crest mildly higher; L scap abd, fwd tip PT-OP-K Range of Motion Start: 03/12/24 11:29 Freq: Status: Active Protocol: Document 03/24/24 07:34 [facility] (Rec: 03/24/24 09:04 [facility] [id number]) Shoulder Goniometric Range of Motion Shoulder Right Active Flexion 136 Extension 61 Abduction 180 External Rotation at 90 degrees 78 Abduction Internal Rotation Behind Back (text) T10 Left Active Flexion 139 Extension 49 Abduction 118 External Rotation at 90 degrees 56 Abduction Internal Rotation Behind Back (text) T9 Comments pain abd, 90/90 ER and ext tight Ankle and Foot Goniometric Range of Motion Ankle and Foot Right Active Dorsiflexion with Knee Flexed 0 Dorsiflexion with Knee Extended 4 Plantarflexion 42 Inversion 24 Eversion 8 Comments lacking DF to neutral in knee ext position Left Active Dorsiflexion with Knee Flexed 4 Dorsiflexion with Knee Extended 12 Plantarflexion 40 Inversion 26 Eversion 11 Comments lacking DF to neutral in knee ext position PT-OP-L Special Tests Start: 03/12/24 11:29 Freq: Status: Active Protocol: Document 03/24/24 07:34 [facility] (Rec: 03/24/24 09:04 [facility] [id number]) Special Tests Lumbar Spine Special Tests Slump Test Results slight more Hs tension Shoulder Special Tests [place] Dimas Impingement Test Results positive L Neer Impingement Test Results minor pain at end range [place] Test Test Results neg L Speed's Biceps Test Results positive L Yergason's Biceps Test Results neg Empty [place] Test Results positve Drop Arm Rotator Cuff Test Results neg Sulcus Test Results neg AC Joint Compression Test Results neg Neural Special Tests- Upper Body Median Nerve Tension Test Results neg L Radial Nerve Tension Test Results positive L Ulnar Nerve Tension Test Results neg L PT-OP-M Strength Start: 03/12/24 11:29 Freq: Status: Active Protocol: Document 03/24/24 07:34 [facility] (Rec: 03/24/24 09:04 [facility] [id number]) Shoulder Strength Shoulder Manual Muscle Testing Left Flexion 4+ Good+ Extension 5 Normal Abduction (C5) 3 Fair External Rotation 5 Normal Internal Rotation 5 Normal Comments 5/5 elbow flex, ext, sup, pron Ankle/Foot Strength Ankle and Foot Manual Muscle Testing Right Dorsiflexion (L4) 5 Normal Inversion 5 Normal Eversion (S1) 5 Normal Left Dorsiflexion (L4) 4+ Good+ Inversion 4+ Good+ Eversion (S1) 5 Normal Toe Strength Toe Manual Muscle Testing Right Flexion 4+ Good+ Extension 4+ Good+ Left Flexion 4+ Good+ Extension 4 Good Comments all toes tested-pain in foot w /flex PT-OP-Q Treatments Start: 03/12/24 11:29 Freq: Status: Active Protocol: Document 05/05/24 07:28 [facility] (Rec: 05/05/24 09:43 [facility] [id number]) Manual Therapy Treatment Soft Tissue Mobilization glutes Body Location L piriformis Mobilization Type Sustained Pressure Intensity/Depth Moderate Body Position Prone Comments w/hip IR/er Joint Mobilizations innominate Comments L caudal and IR FM prone sacrum Comments UPA L FM and caudal glide L>R FM w/LTR rearfoot Joint L Comments AP tib and talus w/strap post to improve DF w/active standing DF Neuro Re-Education Treatment Other Activities facilation Reps/Duration 2 min Comments manual facilitation at end range IR L hip prone w/ prolonge dholds after mobs Self-Care/Home Management Treatment Education Other Education 4 min: edu that massage therapy is always a good addition to care; edu for roll out of calf w/foam roll/ tennis ball PT-OP-T Assessment and Plan Start: 03/12/24 11:29 Freq: Status: Active Protocol: Document 05/05/24 07:28 [facility] (Rec: 05/05/24 09:43 [facility] [id number]) Physical Therapy Assessment Goals mobility Color Checker Roving Or Yarn Goal (LTG) Pt will report no difficulty w /reaching L foot in shower or donning/doff shoes LTG Duration 06/16 strength Short Term Goal (STG) pt will be indep w/HEP Color Checker Roving Or Yarn Goal (LTG) Pt will score at least 5/5 on all BLE and UE MMT and at least 3/5 LPM in all planes to show improved stability to allow greater ease in daily activities. LTG Duration 06/16 ROM Short Term Goal (STG) pt will have B DF to at least 4 in knee ext position to dec tension on foot. STG Duration 05/17 Shelter Goal (LTG) Pt will have full L shoulder ROM w/o inc pain LTG Duration 06/16 activities Short Term Goal (STG) Pt will be able to walk in any of his appropriate shoes w/o inc pain STG Duration 05/11 Shelter Goal (LTG) Pt will be able to do all of exercise program w/o inc pain and do all of heavy work around house/on boat w/o inc pain LTG Duration 06/16 Assessment Summary Assessment Pt started session with L positive slump test and ended w/neg slump on L. He also had imrpoved DF after manual but still sig calf tightness. Given self roll out to help w/ this. Physical Therapy Plan Frequency and Duration Frequency of Treatment 1-2x/wk Duration of treatment (weeks) 12 Plan of Care Start Date 03/24/24 Plan of Care End Date 06/16/24 Next Visit Focus/Plan Next Note Type Treatment Note Next Visit Plan discuss if any exercises w/ workouts creating pain, manual to L foot/ankle to improve DF
--- NOTE | 2024-05-12 18:19 | PT.OTN ---
Current Diagnoses Cutaneous abscess, unspecified (05/12/24) Pain in left upper arm (05/12/24) Pain in left foot (05/12/24) Abnormal posture (05/12/24) Other symptoms and signs involving the nervous system (05/12/24) Weakness (05/12/24) Physical Therapy Treatment Note PT-OP-A Visit Information Start: 03/12/24 11:29 Freq: Status: Active Protocol: Document 05/12/24 13:02 [facility] (Rec: 05/12/24 13:52 [facility] [id number]) Out-Patient Physical Therapy Visit Information Visit Information Visit Type Treatment Note Visit Start Time 13:03 Visit Stop Time 13:46 Visit Number 7 Number of MAGNETIC HEALER Visits 0 PT-OP-B Current Condition Start: 03/12/24 11:29 Freq: Status: Active Protocol: Document 03/24/24 07:34 [facility] (Rec: 03/24/24 09:04 [facility] [id number]) Current Condition History of Current Condition Current Complaints L foot pain, L shoulder pain, LBP History of Current Condition Pt reports L foot was really a problem for a couple months but is better. Unsure what started the foot pain. Foot pain was on plantar and dorsal surface sometimes. He uses superfeet. Pain was around base of 1st MT. Reports some toe walking as a kid. He put new superfeet in his shoes and that helped. [place] really [place] the [place] day and had pain w/walks. He has one pair of shoes that are more comfortable. He has L shoulder pain that is also a little better. He does have some lat shoulder pain that has been chronic. He does his band exercises and does notice it some w/abd and Hadd. SInce last bout of PT, back has been doing pretty good overalll. No referred pain. He does still have some difficulty w/reaching LLE. Treatment Goals Patient/Caregiver Goals reach L foot easier, less pain in L shoulder w/workouts and heavy work on boat etc. PT-OP-C Subjective Start: 03/12/24 11:29 Freq: Status: Active Protocol: Document 05/12/24 13:02 [facility] (Rec: 05/12/24 13:52 [facility] [id number]) OP-PT Subjective Patient Comments Patient Comments Pt reports after last session, L knee has been hurting a lot . Started the next day.He has kept doing his exercises, but when stretching quad and just constant and first thing in AM . Pain is in post knee and ant med. he is still walking. back pain is back to R side. PT-OP-J Posture/Palpation/Skin Start: 03/12/24 11:29 Freq: Status: Active Protocol: Document 03/24/24 07:34 [facility] (Rec: 03/24/24 09:04 [facility] [id number]) Posture Evaluation [facility] Postural Classification System Elbow Flexion Test 1 Lumbar Protective Mechanism Left AP 0 Lumbar Protective Mechanism Right AP 0 Lumbar Protective Mechanism Left PA 1 Lumbar Protective Mechanism Right PA 2 Comments Posture Comments toes out more on LLE, L iliac crest mildly higher; L scap abd, fwd tip PT-OP-K Range of Motion Start: 03/12/24 11:29 Freq: Status: Active Protocol: Document 03/24/24 07:34 [facility] (Rec: 03/24/24 09:04 [facility] [id number]) Shoulder Goniometric Range of Motion Shoulder Right Active Flexion 136 Extension 61 Abduction 180 External Rotation at 90 degrees 78 Abduction Internal Rotation Behind Back (text) T10 Left Active Flexion 139 Extension 49 Abduction 118 External Rotation at 90 degrees 56 Abduction Internal Rotation Behind Back (text) T9 Comments pain abd, 90/90 ER and ext tight Ankle and Foot Goniometric Range of Motion Ankle and Foot Right Active Dorsiflexion with Knee Flexed 0 Dorsiflexion with Knee Extended 4 Plantarflexion 42 Inversion 24 Eversion 8 Comments lacking DF to neutral in knee ext position Left Active Dorsiflexion with Knee Flexed 4 Dorsiflexion with Knee Extended 12 Plantarflexion 40 Inversion 26 Eversion 11 Comments lacking DF to neutral in knee ext position PT-OP-L Special Tests Start: 03/12/24 11:29 Freq: Status: Active Protocol: Document 03/24/24 07:34 [facility] (Rec: 03/24/24 09:04 [facility] [id number]) Special Tests Lumbar Spine Special Tests Slump Test Results slight more Hs tension Shoulder Special Tests Durant Dimas Impingement Test Results positive L Neer Impingement Test Results minor pain at end range Hayward Test Test Results neg L Speed's Biceps Test Results positive L Yergason's Biceps Test Results neg Empty Can Test Results positve Drop Arm Rotator Cuff Test Results neg Sulcus Test Results neg AC Joint Compression Test Results neg Neural Special Tests- Upper Body Median Nerve Tension Test Results neg L Radial Nerve Tension Test Results positive L Ulnar Nerve Tension Test Results neg L PT-OP-M Strength Start: 03/12/24 11:29 Freq: Status: Active Protocol: Document 03/24/24 07:34 [facility] (Rec: 03/24/24 09:04 [facility] [id number]) Shoulder Strength Shoulder Manual Muscle Testing Left Flexion 4+ Good+ Extension 5 Normal Abduction (C5) 3 Fair External Rotation 5 Normal Internal Rotation 5 Normal Comments 5/5 elbow flex, ext, sup, pron Ankle/Foot Strength Ankle and Foot Manual Muscle Testing Right Dorsiflexion (L4) 5 Normal Inversion 5 Normal Eversion (S1) 5 Normal Left Dorsiflexion (L4) 4+ Good+ Inversion 4+ Good+ Eversion (S1) 5 Normal Toe Strength Toe Manual Muscle Testing Right Flexion 4+ Good+ Extension 4+ Good+ Left Flexion 4+ Good+ Extension 4 Good Comments all toes tested-pain in foot w /flex PT-OP-Q Treatments Start: 03/12/24 11:29 Freq: Status: Active Protocol: Document 05/12/24 13:02 [facility] (Rec: 05/12/24 13:52 [facility] [id number]) Therapeutic Exercises Standing Exercises stretch Standing Exercise Name review of calf stretch options (tilt board), fwd lean, wall Side left Reps/Minutes 8 min total Manual Therapy Treatment Soft Tissue Mobilization calf Body Location L Mobilization Type Rolling Intensity/Depth Moderate Body Position Supine plantar fascia Body Location L Mobilization Type Rolling,Sustained Pressure, Other Intensity/Depth Moderate Comments STMs, pressure /c 1st great toe flex/ext Joint Mobilizations knee Comments 1. proximal tibfib PA FM 2. tibiofemoral PA on tib FM MTP Joint L 1st distraction and AP FM PT-OP-T Assessment and Plan Start: 03/12/24 11:29 Freq: Status: Active Protocol: Document 05/12/24 13:02 [facility] (Rec: 05/12/24 13:52 [facility] [id number]) Physical Therapy Assessment Goals mobility Clergy Member Goal (LTG) Pt will report no difficulty w /reaching L foot in shower or donning/doff shoes LTG Duration 716 strength Short Term Goal (STG) pt will be indep w/HEP Halfway Goal (LTG) Pt will score at least 5/5 on all BLE and UE MMT and at least 3/5 LPM in all planes to show improved stability to allow greater ease in daily activities. LTG Duration 06/16 ROM Short Term Goal (STG) pt will have B DF to at least 4 in knee ext position to dec tension on foot. STG Duration 05/17 Clergy Member Goal (LTG) Pt will have full L shoulder ROM w/o inc pain LTG Duration 06/16 activities Short Term Goal (STG) Pt will be able to walk in any of his appropriate shoes w/o inc pain STG Duration 05/11 Halfway Goal (LTG) Pt will be able to do all of exercise program w/o inc pain and do all of heavy work around house/on boat w/o inc pain LTG Duration 06/16 Assessment Summary Assessment Pt had swelling of L knee and tenderness along med jt line along w/positive cristian test and tenderness of calf indicating possible strain of calf and/or med meniscus injury. Pt unable to recall what else was done that day besides working on his boat. Pt had improed big toe ext and dec pain in knee and foot after manual and inc L knee flex before onset of tightness . Encouraged to ice knee and contact PT w/further questions . Physical Therapy Plan Frequency and Duration Frequency of Treatment 1-2x/wk Duration of treatment (weeks) 12 Plan of Care Start Date 03/24/24 Plan of Care End Date 06/16/24 Next Visit Focus/Plan Next Note Type Treatment Note Next Visit Plan check on how knee is feeling and swelling; cont to work on foot mobility and LE mobility and back stability/mobility
--- NOTE | 2024-05-19 16:03 | PT.OTN ---
Current Diagnoses Cutaneous abscess, unspecified (05/19/24) Pain in left upper arm (05/19/24) Pain in left foot (05/19/24) Abnormal posture (05/19/24) Other symptoms and signs involving the nervous system (05/19/24) Weakness (05/19/24) Physical Therapy Treatment Note PT-OP-A Visit Information Start: 03/12/24 11:29 Freq: Status: Active Protocol: Document 05/19/24 07:38 [facility] (Rec: 05/19/24 16:01 [facility] [id number]) Out-Patient Physical Therapy Visit Information Visit Information Visit Type Treatment Note Visit Note 07/11 Visit Start Time 07:35 Visit Stop Time 08:15 Visit Number 8 Number of COLLECTIONS ATTORNEY Visits 0 PT-OP-B Current Condition Start: 03/12/24 11:29 Freq: Status: Active Protocol: Document 03/24/24 07:34 [facility] (Rec: 03/24/24 09:04 [facility] [id number]) Current Condition History of Current Condition Current Complaints L foot pain, L shoulder pain, LBP History of Current Condition Pt reports L foot was really a problem for a couple months but is better. Unsure what started the foot pain. Foot pain was on plantar and dorsal surface sometimes. He uses superfeet. Pain was around base of 1st [place]. Reports some toe walking as a kid. He put new superfeet in his shoes and that helped. [place] really [place] the [place] day and had pain w/walks. He has one pair of shoes that are more comfortable. He has L shoulder pain that is also a little better. He does have some lat shoulder pain that has been chronic. He does his band exercises and does notice it some w/abd and Hadd. SInce last bout of PT, back has been doing pretty good overalll. No referred pain. He does still have some difficulty w/reaching LLE. Treatment Goals Patient/Caregiver Goals reach L foot easier, less pain in L shoulder w/workouts and heavy work on boat etc. PT-OP-C Subjective Start: 03/12/24 11:29 Freq: Status: Active Protocol: Document 05/19/24 07:38 [facility] (Rec: 05/19/24 16:01 [facility] [id number]) OP-PT Subjective Patient Comments Patient Comments Pt reports yesterfday knee was bad but he took ibuprofen 2 days after last session and that helped but pain came back despite icing. Some mornings back is sore. Today knee is better. Yesterday B feet hurting. PT-OP-J Posture/Palpation/Skin Start: 03/12/24 11:29 Freq: Status: Active Protocol: Document 03/24/24 07:34 [facility] (Rec: 03/24/24 09:04 [facility] [id number]) Posture Evaluation [facility] Postural Classification System Elbow Flexion Test 1 Lumbar Protective Mechanism Left AP 0 Lumbar Protective Mechanism Right AP 0 Lumbar Protective Mechanism Left PA 1 Lumbar Protective Mechanism Right PA 2 Comments Posture Comments toes out more on LLE, L iliac crest mildly higher; L scap abd, fwd tip PT-OP-K Range of Motion Start: 03/12/24 11:29 Freq: Status: Active Protocol: Document 03/24/24 07:34 [facility] (Rec: 03/24/24 09:04 [facility] [id number]) Shoulder Goniometric Range of Motion Shoulder Right Active Flexion 136 Extension 61 Abduction 180 External Rotation at 90 degrees 78 Abduction Internal Rotation Behind Back (text) T10 Left Active Flexion 139 Extension 49 Abduction 118 External Rotation at 90 degrees 56 Abduction Internal Rotation Behind Back (text) T9 Comments pain abd, 90/90 ER and ext tight Ankle and Foot Goniometric Range of Motion Ankle and Foot Right Active Dorsiflexion with Knee Flexed 0 Dorsiflexion with Knee Extended 4 Plantarflexion 42 Inversion 24 Eversion 8 Comments lacking DF to neutral in knee ext position Left Active Dorsiflexion with Knee Flexed 4 Dorsiflexion with Knee Extended 12 Plantarflexion 40 Inversion 26 Eversion 11 Comments lacking DF to neutral in knee ext position PT-OP-L Special Tests Start: 03/12/24 11:29 Freq: Status: Active Protocol: Document 03/24/24 07:34 [facility] (Rec: 03/24/24 09:04 [facility] [id number]) Special Tests Lumbar Spine Special Tests Slump Test Results slight more Hs tension Shoulder Special Tests Durant Dimas Impingement Test Results positive L Neer Impingement Test Results minor pain at end range Liberty Test Test Results neg L Speed's Biceps Test Results positive L Yergason's Biceps Test Results neg Empty Can Test Results positve Drop Arm Rotator Cuff Test Results neg Sulcus Test Results neg AC Joint Compression Test Results neg Neural Special Tests- Upper Body Median Nerve Tension Test Results neg L Radial Nerve Tension Test Results positive L Ulnar Nerve Tension Test Results neg L PT-OP-M Strength Start: 03/12/24 11:29 Freq: Status: Active Protocol: Document 03/24/24 07:34 [facility] (Rec: 03/24/24 09:04 [facility] [id number]) Shoulder Strength Shoulder Manual Muscle Testing Left Flexion 4+ Good+ Extension 5 Normal Abduction (C5) 3 Fair External Rotation 5 Normal Internal Rotation 5 Normal Comments 5/5 elbow flex, ext, sup, pron Ankle/Foot Strength Ankle and Foot Manual Muscle Testing Right Dorsiflexion (L4) 5 Normal Inversion 5 Normal Eversion (S1) 5 Normal Left Dorsiflexion (L4) 4+ Good+ Inversion 4+ Good+ Eversion (S1) 5 Normal Toe Strength Toe Manual Muscle Testing Right Flexion 4+ Good+ Extension 4+ Good+ Left Flexion 4+ Good+ Extension 4 Good Comments all toes tested-pain in foot w /flex PT-OP-Q Treatments Start: 03/12/24 11:29 Freq: Status: Active Protocol: Document 05/19/24 07:38 [facility] (Rec: 05/19/24 16:01 [facility] [id number]) Manual Therapy Treatment Soft Tissue Mobilization HS Body Location L Mobilization Type Rolling quads Body Location L RF Mobilization Type Rolling Intensity/Depth Moderate Comments gonzalo test calf Body Location L Mobilization Type Rolling Intensity/Depth Moderate Body Position Supine Joint Mobilizations hip Joint L abd FM rearfoot Comments L calcaneaus lat glide L talus med glide PT-OP-T Assessment and Plan Start: 03/12/24 11:29 Freq: Status: Active Protocol: Document 05/19/24 07:38 [facility] (Rec: 05/19/24 16:01 [facility] [id number]) Physical Therapy Assessment Goals mobility Piping Blocker Goal (LTG) Pt will report no difficulty w /reaching L foot in shower or donning/doff shoes LTG Duration 7/16 strength Short Term Goal (STG) pt will be indep w/HEP Piping Blocker Goal (LTG) Pt will score at least 5/5 on all BLE and UE MMT and at least 3/5 LPM in all planes to show improved stability to allow greater ease in daily activities. LTG Duration 06/16 ROM Short Term Goal (STG) pt will have B DF to at least 4 in knee ext position to dec tension on foot. STG Duration 05/17 Mcc Goal (LTG) Pt will have full L shoulder ROM w/o inc pain LTG Duration 06/16 activities Short Term Goal (STG) Pt will be able to walk in any of his appropriate shoes w/o inc pain STG Duration 05/11 Piping Blocker Goal (LTG) Pt will be able to do all of exercise program w/o inc pain and do all of heavy work around house/on boat w/o inc pain LTG Duration 06/16 Assessment Summary Assessment Pt had improved ankle dorsiflexion after manual today which shoulde dec load off of L foot. Improved L hip motion into abd w/manual Physical Therapy Plan Frequency and Duration Frequency of Treatment 1-2x/wk Duration of treatment (weeks) 12 Plan of Care Start Date 03/24/24 Plan of Care End Date 06/16/24 Next Visit Focus/Plan Next Note Type Treatment Note Next Visit Plan focus on L foot mobility and LLE mobility for hip and knee and foot
--- NOTE | 2024-05-27 17:33 | PT.OTN ---
Current Diagnoses Cutaneous abscess, unspecified (05/27/24) Pain in left upper arm (05/27/24) Pain in left foot (05/27/24) Abnormal posture (05/27/24) Other symptoms and signs involving the nervous system (05/27/24) Weakness (05/27/24) Physical Therapy Treatment Note PT-OP-A Visit Information Start: 03/12/24 11:29 Freq: Status: Active Protocol: Document 05/27/24 16:08 [facility] (Rec: 05/27/24 17:32 [facility] [id number]) Out-Patient Physical Therapy Visit Information Visit Information Visit Type Progress Note Visit Start Time 16:06 Visit Number 9 Number of [employer] WINDOWS ENGINEER Visits 0 PT-OP-B Current Condition Start: 03/12/24 11:29 Freq: Status: Active Protocol: Document 03/24/24 07:34 [facility] (Rec: 03/24/24 09:04 [facility] [id number]) Current Condition History of Current Condition Current Complaints L foot pain, L shoulder pain, LBP History of Current Condition Pt reports L foot was really a problem for a couple months but is better. Unsure what started the foot pain. Foot pain was on plantar and dorsal surface sometimes. He uses superfeet. Pain was around base of 1st [place]. Reports some toe walking as a kid. He put new superfeet in his shoes and that helped. [place] really [place] the [place] day and had pain w/walks. He has one pair of shoes that are more comfortable. He has L shoulder pain that is also a little better. He does have some lat shoulder pain that has been chronic. He does his band exercises and does notice it some w/abd and Hadd. SInce last bout of PT, back has been doing pretty good overalll. No referred pain. He does still have some difficulty w/reaching LLE. Treatment Goals Patient/Caregiver Goals reach L foot easier, less pain in L shoulder w/workouts and heavy work on boat etc. PT-OP-C Subjective Start: 03/12/24 11:29 Freq: Status: Active Protocol: Document 05/27/24 16:08 [facility] (Rec: 05/27/24 17:32 [facility] [id number]) OP-PT Subjective Patient Comments Patient Comments Pt has been doing ibuprofen for 5 days and that has helped w/knee swelling. hiking today , could feel med knee mostly PT-OP-J Posture/Palpation/Skin Start: 03/12/24 11:29 Freq: Status: Active Protocol: Document 05/27/24 16:08 [facility] (Rec: 05/27/24 17:32 [facility] [id number]) Posture Evaluation [facility] Postural Classification System Elbow Flexion Test 2 Lumbar Protective Mechanism Left AP 3 Lumbar Protective Mechanism Right AP 2 Lumbar Protective Mechanism Left PA 3 Lumbar Protective Mechanism Right PA 3 PT-OP-K Range of Motion Start: 03/12/24 11:29 Freq: Status: Active Protocol: Document 05/27/24 16:08 [facility] (Rec: 05/27/24 17:32 [facility] [id number]) Shoulder Goniometric Range of Motion Shoulder Left Active Flexion 154 Extension 63 Abduction 154 External Rotation at 90 degrees 80 Abduction Internal Rotation Behind Back (text) T9 Comments pain abd Ankle and Foot Goniometric Range of Motion Ankle and Foot Right Active Dorsiflexion with Knee Flexed 5 Dorsiflexion with Knee Extended 1 Left Active Dorsiflexion with Knee Flexed 6 Dorsiflexion with Knee Extended 1 PT-OP-L Special Tests Start: 03/12/24 11:29 Freq: Status: Active Protocol: Document 03/24/24 07:34 [facility] (Rec: 03/24/24 09:04 [facility] [id number]) Special Tests Lumbar Spine Special Tests Slump Test Results slight more Hs tension Shoulder Special Tests Durant Dimas Impingement Test Results positive L Neer Impingement Test Results minor pain at end range [place] Test Test Results neg L Speed's Biceps Test Results positive L Yergason's Biceps Test Results neg Empty Can Test Results positve Drop Arm Rotator Cuff Test Results neg Sulcus Test Results neg AC Joint Compression Test Results neg Neural Special Tests- Upper Body Median Nerve Tension Test Results neg L Radial Nerve Tension Test Results positive L Ulnar Nerve Tension Test Results neg L PT-OP-M Strength Start: 03/12/24 11:29 Freq: Status: Active Protocol: Document 05/27/24 16:08 [facility] (Rec: 05/27/24 17:32 [facility] [id number]) Shoulder Strength Shoulder Manual Muscle Testing Left Flexion 5 Normal Extension 5 Normal Abduction (C5) 5 Normal External Rotation 5 Normal Internal Rotation 5 Normal Horizontal Abduction 5 Normal Horizontal Adduction 5 Normal Comments min pain Hip Strength Hip Manual Muscle Testing Right Flexion (L2) 4+ Good+ Extension (S1) 5 Normal Abduction 5 Normal Adduction 5 Normal External Rotation 5 Normal Internal Rotation 5 Normal Left Flexion (L2) 4 Good Extension (S1) 5 Normal Abduction 5 Normal Adduction 5 Normal External Rotation 5 Normal Internal Rotation 5 Normal Knee Strength Knee Manual Muscle Testing Right Flexion (S2) 5 Normal Extension (L3) 5 Normal Left Flexion (S2) 5 Normal Extension (L3) 5 Normal Ankle/Foot Strength Ankle and Foot Manual Muscle Testing Right Dorsiflexion (L4) 5 Normal Plantarflexion (S1) 5 Normal Inversion 5 Normal Eversion (S1) 5 Normal Comments B toe flex/ext toes 1-5: 5/5; 20 heel raises B Left Dorsiflexion (L4) 5 Normal Plantarflexion (S1) 5 Normal Inversion 4+ Good+ Eversion (S1) 5 Normal PT-OP-Q Treatments Start: 03/12/24 11:29 Freq: Status: Active Protocol: Document 05/27/24 16:08 [facility] (Rec: 05/27/24 17:32 [facility] [id number]) Therapeutic Exercises Supine Exercises core Supine Exercise Name DL isometric Side bilateral Reps/Minutes 2x30 sec Comments inc time for set up Sitting Exercises ER Side left Reps/Minutes 8 Comments slide foot up opp wade ROM Sitting Exercise Name DF ankle supine and seated Side bilateral Standing Exercises Abd Standing Exercise Name shoulder Side bilateral Reps/Minutes 8 Other Exercises isometrics Other Exercise Name LPM, EFT, BLE and BUE MMT Side bilateral Manual Therapy Treatment Soft Tissue Mobilization quads Body Location L RF & VL Mobilization Type Rolling Intensity/Depth Moderate Body Position Sidelying Comments quad stretch calf Body Location L Mobilization Type Rolling Intensity/Depth Moderate Body Position Supine plantar fascia Body Location L Mobilization Type Rolling,Sustained Pressure, Other Intensity/Depth Moderate Comments STMs, pressure /c 1st great toe flex/ext Joint Mobilizations shoulder Comments GH inf FM AC post scap FM MTP Joint L 1st distraction and AP FM midfoot Joint L Comments navicular and cuneiform med FM PT-OP-T Assessment and Plan Start: 03/12/24 11:29 Freq: Status: Active Protocol: Document 05/27/24 16:08 [facility] (Rec: 05/27/24 17:32 [facility] [id number]) Physical Therapy Assessment Goals mobility [employer]oir [employer] Consultant Goal (LTG) Pt will report no difficulty w /reaching L foot in shower or donning/doff shoes 05/27-improved ability to don/ doff shoes, still some limit in shower LTG Duration 07/29 strength Short Term Goal (STG) pt will be indep w/HEP STG Duration achieved advancing as able Snf Goal (LTG) Pt will score at least 5/5 on all BLE and UE MMT and at least 3/5 LPM in all planes to show improved stability to allow greater ease in daily activities. 05/27-mostly achieved LTG Duration 07/02 ROM Short Term Goal (STG) pt will have B DF to at least 4 in knee to wall position to dec tension on foot. 05/27-improved ROM signfiicantly STG Duration 06/20 Reservoir Engineering Consultant Goal (LTG) Pt will have full L shoulder ROM w/o inc pain 05/27-mostly full execpt abd limited w/some discomfort improved after manual LTG Duration 07/30 activities Short Term Goal (STG) Pt will be able to walk in any of his appropriate shoes w/o inc pain 05/27-foot feels good; some knee pain though STG Duration 06/20 Reservoir Engineering Consultant Goal (LTG) Pt will be able to do all of exercise program w/o inc pain and do all of heavy work around house/on boat w/o inc pain 05/27-sometimes foot pain occ and occ w/shoulder but it is better LTG Duration 07/30 Assessment Summary Assessment Pt has been overall progressing well with PT with improved L shoulder pain, improved back pain and dec foot pain. 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 he would benefit from cont PT to work on ROM, strength, balance, gait and functional mobility to dec pain. Physical Therapy Plan Frequency and Duration Frequency of Treatment 1-2x/wk Duration of treatment (weeks) 8 Plan of Care Start Date 05/27/24 Plan of Care End Date 07/30/24 Therapeutic Interventions Therapeutic Interventions Balance Training,Gait Training ,Home Exercise Program,Joint Mobilizations,Manual Therapy, Neuromuscular Re-education, Orthotic/Prosthetic Management ,Patient/Caregiver Education, Self-Care/Home Management,Soft Tissue Mobilization,Taping, Therapeutic Activities, Therapeutic Exercises Modalities Cold Pack/Ice Massage,Electric Stimulation,Hot Packs Next Visit Focus/Plan Next Note Type Treatment Note Next Visit Plan focus on L foot mobility and LLE mobility for hip and knee and foot
--- NOTE | 2024-05-27 17:33 | PT.OPPOC ---
Physical, Occupational & Speech Therapy At [facility] Current Diagnoses Cutaneous abscess, unspecified (05/27/24) Pain in left upper arm (05/27/24) Pain in left foot (05/27/24) Abnormal posture (05/27/24) Other symptoms and signs involving the nervous system (05/27/24) Weakness (05/27/24) Visit Care Team Role Provider Type Sadny Nayak DO Attending Provider Physician Family Provider Primary Care Provider Referring Provider Specialty: [facility] Practice Address: [address] [place] [address], [address], [facility] Email: [email or web address] Plan Of Care PT-OP-T Assessment and Plan Start: 03/12/24 11:29 Freq: Status: Active Protocol: Document 05/27/24 16:08 [facility] (Rec: 05/27/24 17:32 [facility] [id number]) Physical Therapy Assessment Goals mobility [facility] Goal (LTG) Pt will report no difficulty w /reaching L foot in shower or donning/doff shoes 05/27-improved ability to don/ doff shoes, still some limit in shower LTG Duration 07/29 strength Short Term Goal (STG) pt will be indep w/HEP STG Duration achieved advancing as able [facility] Goal (LTG) Pt will score at least 5/5 on all BLE and UE MMT and at least 3/5 LPM in all planes to show improved stability to allow greater ease in daily activities. 05/27-mostly achieved LTG Duration 07/02 ROM Short Term Goal (STG) pt will have B DF to at least 4 in knee to wall position to dec tension on foot. 05/27-improved ROM signfiicantly STG Duration 06/20 Chief Pilot Goal (LTG) Pt will have full L shoulder ROM w/o inc pain 05/27-mostly full execpt abd limited w/some discomfort improved after manual LTG Duration 07/30 activities Short Term Goal (STG) Pt will be able to walk in any of his appropriate shoes w/o inc pain 05/27-foot feels good; some knee pain though STG Duration 06/20 [facility] Goal (LTG) Pt will be able to do all of exercise program w/o inc pain and do all of heavy work around house/on boat w/o inc pain 05/27-sometimes foot pain occ and occ w/shoulder but it is better LTG Duration 07/30 Assessment Summary Assessment Pt has been overall progressing well with PT with improved L shoulder pain, improved back pain and dec foot pain. 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 he would benefit from cont PT to work on ROM, strength, balance, gait and functional mobility to dec pain. Physical Therapy Plan Frequency and Duration Frequency of Treatment 1-2x/wk Duration of treatment (weeks) 8 Plan of Care Start Date 05/27/24 Plan of Care End Date 07/30/24 Therapeutic Interventions Therapeutic Interventions Balance Training,Gait Training ,Home Exercise Program,Joint Mobilizations,Manual Therapy, Neuromuscular Re-education, Orthotic/Prosthetic Management ,Patient/Caregiver Education, Self-Care/Home Management,Soft Tissue Mobilization,Taping, Therapeutic Activities, Therapeutic Exercises Modalities Cold Pack/Ice Massage,Electric Stimulation,Hot Packs Next Visit Focus/Plan Next Note Type Treatment Note Next Visit Plan focus on L foot mobility and LLE mobility for hip and knee and foot Plan of Care Dates Plan of Care Start Date 05/27/24 Plan of Care End Date 07/30/24 Electronically Signed by: Valentine Olivera, PT 05/27/24 0903 If you are in agreement with this Plan of Care, please return a signed and dated copy. I have reviewed this Plan of Care and certify that the skilled therapy services above are required to meet the patient?s needs. Physician Signature Date Printed Name and Credentials Clinical Instructor Signature Printed Name and Credentials
--- NOTE | 2024-06-10 11:04 | PT.OTN ---
Current Diagnoses Cutaneous abscess, unspecified (06/10/24) Pain in left upper arm (06/10/24) Pain in left foot (06/10/24) Abnormal posture (06/10/24) Other symptoms and signs involving the nervous system (06/10/24) Weakness (06/10/24) Physical Therapy Treatment Note PT-OP-A Visit Information Start: 03/12/24 11:29 Freq: Status: Active Protocol: Document 06/10/24 08:14 [facility] (Rec: 06/10/24 11:04 [facility] [id number]) Out-Patient Physical Therapy Visit Information Visit Information Visit Type Treatment Note Visit Start Time 08:18 Visit Stop Time 09:00 Visit Number 10 Number of SUBMARINE WORKER Visits 0 PT-OP-B Current Condition Start: 03/12/24 11:29 Freq: Status: Active Protocol: Document 03/24/24 07:34 [facility] (Rec: 03/24/24 09:04 [facility] [id number]) Current Condition History of Current Condition Current Complaints L foot pain, L shoulder pain, LBP History of Current Condition Pt reports L foot was really a problem for a couple months but is better. Unsure what started the foot pain. Foot pain was on plantar and dorsal surface sometimes. He uses superfeet. Pain was around base of 1st [place]. Reports some toe walking as a kid. He put new superfeet in his shoes and that helped. [place] really hurt the next day and had pain w/walks. He has one pair of shoes that are more comfortable. He has L shoulder pain that is also a little better. He does have some lat shoulder pain that has been chronic. He does his band exercises and does notice it some w/abd and Hadd. SInce last bout of PT, back has been doing pretty good overalll. No referred pain. He does still have some difficulty w/reaching LLE. Treatment Goals Patient/Caregiver Goals reach L foot easier, less pain in L shoulder w/workouts and heavy work on boat etc. PT-OP-C Subjective Start: 03/12/24 11:29 Freq: Status: Active Protocol: Document 06/10/24 08:14 [facility] (Rec: 06/10/24 11:04 [facility] [id number]) OP-PT Subjective Patient Comments Patient Comments Pt hasn't taken Ibuprofen for 10-12 days. Pt notes knee is better. [place] In the AM still tight in calf. Sprained R foot about a week ago but its getting better. Back is having episodes like when at [employer] yesterday feels like losing strength in R leg. Only lasts about 30 min. No difficulty sleeping at night. Bending over in Am, back hurts, thenw alk and exercise and by 1pm it feels better. Foot occ flares up but doesn't seem to last. hurt a little yesterday on ball. PT-OP-J Posture/Palpation/Skin Start: 03/12/24 11:29 Freq: Status: Active Protocol: Document 05/27/24 16:08 [facility] (Rec: 05/27/24 17:32 [facility] [id number]) Posture Evaluation [facility] Postural Classification System Elbow Flexion Test 2 Lumbar Protective Mechanism Left AP 3 Lumbar Protective Mechanism Right AP 2 Lumbar Protective Mechanism Left PA 3 Lumbar Protective Mechanism Right PA 3 PT-OP-K Range of Motion Start: 03/12/24 11:29 Freq: Status: Active Protocol: Document 05/27/24 16:08 [facility] (Rec: 05/27/24 17:32 [facility] [id number]) Shoulder Goniometric Range of Motion Shoulder Left Active Flexion 154 Extension 63 Abduction 154 External Rotation at 90 degrees 80 Abduction Internal Rotation Behind Back (text) T9 Comments pain abd Ankle and Foot Goniometric Range of Motion Ankle and Foot Right Active Dorsiflexion with Knee Flexed 5 Dorsiflexion with Knee Extended 1 Left Active Dorsiflexion with Knee Flexed 6 Dorsiflexion with Knee Extended 1 PT-OP-L Special Tests Start: 03/12/24 11:29 Freq: Status: Active Protocol: Document 03/24/24 07:34 [facility] (Rec: 03/24/24 09:04 [facility] [id number]) Special Tests Lumbar Spine Special Tests Slump Test Results slight more Hs tension Shoulder Special Tests Durant Dimas Impingement Test Results positive L Neer Impingement Test Results minor pain at end range [place] Test Test Results neg L Speed's Biceps Test Results positive L Yergason's Biceps Test Results neg Empty Can Test Results positve Drop Arm Rotator Cuff Test Results neg Sulcus Test Results neg AC Joint Compression Test Results neg Neural Special Tests- Upper Body Median Nerve Tension Test Results neg L Radial Nerve Tension Test Results positive L Ulnar Nerve Tension Test Results neg L PT-OP-M Strength Start: 03/12/24 11:29 Freq: Status: Active Protocol: Document 05/27/24 16:08 [facility] (Rec: 05/27/24 17:32 [facility] [id number]) Shoulder Strength Shoulder Manual Muscle Testing Left Flexion 5 Normal Extension 5 Normal Abduction (C5) 5 Normal External Rotation 5 Normal Internal Rotation 5 Normal Horizontal Abduction 5 Normal Horizontal Adduction 5 Normal Comments min pain Hip Strength Hip Manual Muscle Testing Right Flexion (L2) 4+ Good+ Extension (S1) 5 Normal Abduction 5 Normal Adduction 5 Normal External Rotation 5 Normal Internal Rotation 5 Normal Left Flexion (L2) 4 Good Extension (S1) 5 Normal Abduction 5 Normal Adduction 5 Normal External Rotation 5 Normal Internal Rotation 5 Normal Knee Strength Knee Manual Muscle Testing Right Flexion (S2) 5 Normal Extension (L3) 5 Normal Left Flexion (S2) 5 Normal Extension (L3) 5 Normal Ankle/Foot Strength Ankle and Foot Manual Muscle Testing Right Dorsiflexion (L4) 5 Normal Plantarflexion (S1) 5 Normal Inversion 5 Normal Eversion (S1) 5 Normal Comments B toe flex/ext toes 1-5: 5/5; 20 heel raises B Left Dorsiflexion (L4) 5 Normal Plantarflexion (S1) 5 Normal Inversion 4+ Good+ Eversion (S1) 5 Normal PT-OP-Q Treatments Start: 03/12/24 11:29 Freq: Status: Active Protocol: Document 06/10/24 08:14 [facility] (Rec: 06/10/24 11:04 [facility] [id number]) Manual Therapy Treatment Consent Patient gave verbal consent for manual Yes treatment Soft Tissue Mobilization back Body Location B ES & QL Mobilization Type Rolling Intensity/Depth Moderate Joint Mobilizations lumbar Comments L3-4, L4-5, L5-S1 gaping quaduped FM Transverse glide L3-5 R FM shoulder Comments GH inf FM AC post scap FM hip Joint L abd FM knee Comments 1. proximal tibfib PA FM 2. tibiofemoral PA on tib FM innominate Comments L add FM sacrum Comments UPA L FM and caudal glide L>R FM w/LTR L GH jt Comments L post translatin and glide, inf translation and glide, lat gapping, IR at 90 w/post glide FM MTP Joint L 1st distraction and AP FM midfoot Joint L Comments navicular and cuneiform med FM rearfoot Comments L calcaneaus lat glide L talus med glide SC Comments L caudal FM ribs Comments R rib 6-9 FM R rotation FM Neuro Re-Education Treatment Other Activities PNF Reps/Duration 10 min Comments facilitation through traction of LLE for ant elevation progressed to sustained holds to COI w/dissociation of pelvis to/from LE w/flex add ER DF pattern progressed to COI fo pelvis/LE together PT-OP-T Assessment and Plan Start: 03/12/24 11:29 Freq: Status: Active Protocol: Document 06/10/24 08:14 [facility] (Rec: 06/10/24 11:04 [facility] [id number]) Physical Therapy Assessment Goals mobility Prison Goal (LTG) Pt will report no difficulty w /reaching L foot in shower or donning/doff shoes 05/27-improved ability to don/ doff shoes, still some limit in shower LTG Duration 07/29 strength Short Term Goal (STG) pt will be indep w/HEP STG Duration achieved advancing as able Prison Goal (LTG) Pt will score at least 5/5 on all BLE and UE MMT and at least 3/5 LPM in all planes to show improved stability to allow greater ease in daily activities. 05/27-mostly achieved LTG Duration 07/02 ROM Short Term Goal (STG) pt will have B DF to at least 4 in knee to wall position to dec tension on foot. 05/27-improved ROM signfiicantly STG Duration 06/20 Prison Goal (LTG) Pt will have full L shoulder ROM w/o inc pain 05/27-mostly full execpt abd limited w/some discomfort improved after manual LTG Duration 07/30 activities Short Term Goal (STG) Pt will be able to walk in any of his appropriate shoes w/o inc pain 05/27-foot feels good; some knee pain though STG Duration 06/20 Prison Goal (LTG) Pt will be able to do all of exercise program w/o inc pain and do all of heavy work around house/on boat w/o inc pain 05/27-sometimes foot pain occ and occ w/shoulder but it is better LTG Duration 07/30 Assessment Summary Assessment Improvd flex from top of thighs to about 1 inc above patella after manual and improved L SB from 50% to about 75% after manual w/dec tightness. Improved core facilitation after PNF. Physical Therapy Plan Frequency and Duration Frequency of Treatment 1-2x/wk Duration of treatment (weeks) 8 Plan of Care Start Date 05/27/24 Plan of Care End Date 07/30/24 Next Visit Focus/Plan Next Note Type Treatment Note Next Visit Plan focus on alignment of pelvis and trunk
--- NOTE | 2024-06-22 12:20 | PT.OTN ---
Current Diagnoses Cutaneous abscess, unspecified (06/22/24) Pain in left upper arm (06/22/24) Pain in left foot (06/22/24) Abnormal posture (06/22/24) Other symptoms and signs involving the nervous system (06/22/24) Weakness (06/22/24) Physical Therapy Treatment Note PT-OP-A Visit Information Start: 03/12/24 11:29 Freq: Status: Active Protocol: Document 06/22/24 08:20 [facility] (Rec: 06/22/24 12:20 [facility] [id number]) Out-Patient Physical Therapy Visit Information Visit Information Visit Type Treatment Note Visit Note 02/08 Visit Start Time 08:20 Visit Stop Time 09:00 Visit Number 11 Number of EFFICIENCY ENGINEER Visits 0 PT-OP-B Current Condition Start: 03/12/24 11:29 Freq: Status: Active Protocol: Document 03/24/24 07:34 [facility] (Rec: 03/24/24 09:04 [facility] [id number]) Current Condition History of Current Condition Current Complaints L foot pain, L shoulder pain, LBP History of Current Condition Pt reports L foot was really a problem for a couple months but is better. Unsure what started the foot pain. Foot pain was on plantar and dorsal surface sometimes. He uses superfeet. Pain was around base of 1st [place]. Reports some toe walking as a kid. He put new superfeet in his shoes and that helped. [place] really [place] the [place] day and had pain w/walks. He has one pair of shoes that are more comfortable. He has L shoulder pain that is also a little better. He does have some lat shoulder pain that has been chronic. He does his band exercises and does notice it some w/abd and Hadd. SInce last bout of PT, back has been doing pretty good overalll. No referred pain. He does still have some difficulty w/reaching LLE. Treatment Goals Patient/Caregiver Goals reach L foot easier, less pain in L shoulder w/workouts and heavy work on boat etc. PT-OP-C Subjective Start: 03/12/24 11:29 Freq: Status: Active Protocol: Document 06/22/24 08:20 [facility] (Rec: 06/22/24 12:20 [facility] [id number]) OP-PT Subjective Patient Comments Patient Comments Pt reports last week was really bad. His back mainly but was getting pain down the R leg also and walking was painful. He was able to do QL stretch. His knee pain comes/ goes. he went swimming and was working on ladder working on an anny and that had made pain worse. L foot is overallb olya. OCc R foot bothers since he tripped w/his sandels . He has taken ibuprofen which has helped. icing backa nd knee a lot. PT-OP-J Posture/Palpation/Skin Start: 03/12/24 11:29 Freq: Status: Active Protocol: Document 05/27/24 16:08 [facility] (Rec: 05/27/24 17:32 [facility] [id number]) Posture Evaluation [facility] Postural Classification System Elbow Flexion Test 2 Lumbar Protective Mechanism Left AP 3 Lumbar Protective Mechanism Right AP 2 Lumbar Protective Mechanism Left PA 3 Lumbar Protective Mechanism Right PA 3 PT-OP-K Range of Motion Start: 03/12/24 11:29 Freq: Status: Active Protocol: Document 05/27/24 16:08 [facility] (Rec: 05/27/24 17:32 [facility] [id number]) Shoulder Goniometric Range of Motion Shoulder Left Active Flexion 154 Extension 63 Abduction 154 External Rotation at 90 degrees 80 Abduction Internal Rotation Behind Back (text) T9 Comments pain abd Ankle and Foot Goniometric Range of Motion Ankle and Foot Right Active Dorsiflexion with Knee Flexed 5 Dorsiflexion with Knee Extended 1 Left Active Dorsiflexion with Knee Flexed 6 Dorsiflexion with Knee Extended 1 PT-OP-L Special Tests Start: 03/12/24 11:29 Freq: Status: Active Protocol: Document 03/24/24 07:34 [facility] (Rec: 03/24/24 09:04 [facility] [id number]) Special Tests Lumbar Spine Special Tests Slump Test Results slight more Hs tension Shoulder Special Tests Durant Dimas Impingement Test Results positive L Neer Impingement Test Results minor pain at end range Brilliant Test Test Results neg L Speed's Biceps Test Results positive L Yergason's Biceps Test Results neg Empty Can Test Results positve Drop Arm Rotator Cuff Test Results neg Sulcus Test Results neg AC Joint Compression Test Results neg Neural Special Tests- Upper Body Median Nerve Tension Test Results neg L Radial Nerve Tension Test Results positive L Ulnar Nerve Tension Test Results neg L PT-OP-M Strength Start: 03/12/24 11:29 Freq: Status: Active Protocol: Document 05/27/24 16:08 [facility] (Rec: 05/27/24 17:32 [facility] [id number]) Shoulder Strength Shoulder Manual Muscle Testing Left Flexion 5 Normal Extension 5 Normal Abduction (C5) 5 Normal External Rotation 5 Normal Internal Rotation 5 Normal Horizontal Abduction 5 Normal Horizontal Adduction 5 Normal Comments min pain Hip Strength Hip Manual Muscle Testing Right Flexion (L2) 4+ Good+ Extension (S1) 5 Normal Abduction 5 Normal Adduction 5 Normal External Rotation 5 Normal Internal Rotation 5 Normal Left Flexion (L2) 4 Good Extension (S1) 5 Normal Abduction 5 Normal Adduction 5 Normal External Rotation 5 Normal Internal Rotation 5 Normal Knee Strength Knee Manual Muscle Testing Right Flexion (S2) 5 Normal Extension (L3) 5 Normal Left Flexion (S2) 5 Normal Extension (L3) 5 Normal Ankle/Foot Strength Ankle and Foot Manual Muscle Testing Right Dorsiflexion (L4) 5 Normal Plantarflexion (S1) 5 Normal Inversion 5 Normal Eversion (S1) 5 Normal Comments B toe flex/ext toes 1-5: 5/5; 20 heel raises B Left Dorsiflexion (L4) 5 Normal Plantarflexion (S1) 5 Normal Inversion 4+ Good+ Eversion (S1) 5 Normal PT-OP-Q Treatments Start: 03/12/24 11:29 Freq: Status: Active Protocol: Document 06/22/24 08:20 [facility] (Rec: 06/22/24 12:20 [facility] [id number]) Manual Therapy Treatment Consent Patient gave verbal consent for manual Yes treatment Soft Tissue Mobilization glutes Body Location R piriformis Mobilization Type Sustained Pressure Intensity/Depth Moderate Body Position Prone Comments w/hip IR/er Joint Mobilizations lumbar Comments R upglide seated L4 and 5 FM innominate Comments R abd FM s/l & IR L and ER FM prone sacrum Comments PA R and caudal FM Neuro Re-Education Treatment Other Activities facilation Reps/Duration 1 min Comments supine flex, add, ER faciliation prolonged hold PNF Reps/Duration 8 min Comments facilitation through traction of RLE for ant elevation progressed to sustained holds to COI w/dissociation of pelvis to/from LE w/flex add ER DF pattern progressed to COI fo pelvis/LE together PT-OP-T Assessment and Plan Start: 03/12/24 11:29 Freq: Status: Active Protocol: Document 06/22/24 08:20 [facility] (Rec: 06/22/24 12:20 [facility] [id number]) Physical Therapy Assessment Goals mobility Pulmonary Physical Therapist Goal (LTG) Pt will report no difficulty w /reaching L foot in shower or donning/doff shoes 05/27-improved ability to don/ doff shoes, still some limit in shower LTG Duration 07/29 strength Short Term Goal (STG) pt will be indep w/HEP STG Duration achieved advancing as able Jail Goal (LTG) Pt will score at least 5/5 on all BLE and UE MMT and at least 3/5 LPM in all planes to show improved stability to allow greater ease in daily activities. 05/27-mostly achieved LTG Duration 07/02 ROM Short Term Goal (STG) pt will have B DF to at least 4 in knee to wall position to dec tension on foot. 05/27-improved ROM signfiicantly STG Duration 06/20 Jail Goal (LTG) Pt will have full L shoulder ROM w/o inc pain 05/27-mostly full execpt abd limited w/some discomfort improved after manual LTG Duration 07/30 activities Short Term Goal (STG) Pt will be able to walk in any of his appropriate shoes w/o inc pain 05/27-foot feels good; some knee pain though STG Duration 06/20 Pulmonary Physical Therapist Goal (LTG) Pt will be able to do all of exercise program w/o inc pain and do all of heavy work around house/on boat w/o inc pain 05/27-sometimes foot pain occ and occ w/shoulder but it is better LTG Duration 07/30 Assessment Summary Assessment pt had improved ROM of hips and spine w/less pain after manual treatment. Improved pelvis alignment after manuala nd improved core activitation w/PNF Physical Therapy Plan Frequency and Duration Frequency of Treatment 1-2x/wk Duration of treatment (weeks) 8 Plan of Care Start Date 05/27/24 Plan of Care End Date 07/30/24 Next Visit Focus/Plan Next Note Type Treatment Note Next Visit Plan focus on alignment of pelvis and trunk and stability for back
--- NOTE | 2024-06-29 11:02 | PT.OTN ---
Current Diagnoses Cutaneous abscess, unspecified (06/29/24) Pain in left upper arm (06/29/24) Pain in left foot (06/29/24) Abnormal posture (06/29/24) Other symptoms and signs involving the nervous system (06/29/24) Weakness (06/29/24) Physical Therapy Treatment Note PT-OP-A Visit Information Start: 03/12/24 11:29 Freq: Status: Active Protocol: Document 06/29/24 08:23 [facility] (Rec: 06/29/24 11:01 [facility] [id number]) Out-Patient Physical Therapy Visit Information Visit Information Visit Type Treatment Note Visit Note 03/11 Visit Start Time 08:21 Visit Stop Time 09:00 Visit Number 12 Number of HOSPITAL ACCOUNT LIAISON Visits 0 PT-OP-B Current Condition Start: 03/12/24 11:29 Freq: Status: Active Protocol: Document 03/24/24 07:34 [facility] (Rec: 03/24/24 09:04 [facility] [id number]) Current Condition History of Current Condition Current Complaints L foot pain, L shoulder pain, LBP History of Current Condition Pt reports L foot was really a problem for a couple months but is better. Unsure what started the foot pain. Foot pain was on plantar and dorsal surface sometimes. He uses superfeet. Pain was around base of 1st [place]. Reports some toe walking as a kid. He put new superfeet in his shoes and that helped. [place] really [place] the [place] day and had pain w/walks. He has one pair of shoes that are more comfortable. He has L shoulder pain that is also a little better. He does have some lat shoulder pain that has been chronic. He does his band exercises and does notice it some w/abd and Hadd. SInce last bout of PT, back has been doing pretty good overalll. No referred pain. He does still have some difficulty w/reaching LLE. Treatment Goals Patient/Caregiver Goals reach L foot easier, less pain in L shoulder w/workouts and heavy work on boat etc. PT-OP-C Subjective Start: 03/12/24 11:29 Freq: Status: Active Protocol: Document 06/29/24 08:23 [facility] (Rec: 06/29/24 11:01 [facility] [id number]) OP-PT Subjective Patient Comments Patient Comments pt has been taking 400mg each am for the last 5 days. Has been icing L knee after walks. He is back to normal except L side of back is more annoying than knee. no pain down R leg , just some tightness. went camping and did okay. couldn't hike d/t closures so didn't do as much as normal PT-OP-J Posture/Palpation/Skin Start: 03/12/24 11:29 Freq: Status: Active Protocol: Document 05/27/24 16:08 [facility] (Rec: 05/27/24 17:32 [facility] [id number]) Posture Evaluation [facility] Postural Classification System Elbow Flexion Test 2 Lumbar Protective Mechanism Left AP 3 Lumbar Protective Mechanism Right AP 2 Lumbar Protective Mechanism Left PA 3 Lumbar Protective Mechanism Right PA 3 PT-OP-K Range of Motion Start: 03/12/24 11:29 Freq: Status: Active Protocol: Document 05/27/24 16:08 [facility] (Rec: 05/27/24 17:32 [facility] [id number]) Shoulder Goniometric Range of Motion Shoulder Left Active Flexion 154 Extension 63 Abduction 154 External Rotation at 90 degrees 80 Abduction Internal Rotation Behind Back (text) T9 Comments pain abd Ankle and Foot Goniometric Range of Motion Ankle and Foot Right Active Dorsiflexion with Knee Flexed 5 Dorsiflexion with Knee Extended 1 Left Active Dorsiflexion with Knee Flexed 6 Dorsiflexion with Knee Extended 1 PT-OP-L Special Tests Start: 03/12/24 11:29 Freq: Status: Active Protocol: Document 03/24/24 07:34 [facility] (Rec: 03/24/24 09:04 [facility] [id number]) Special Tests Lumbar Spine Special Tests Slump Test Results slight more Hs tension Shoulder Special Tests Durant Dimas Impingement Test Results positive L Neer Impingement Test Results minor pain at end range [place] Test Test Results neg L Speed's Biceps Test Results positive L Yergason's Biceps Test Results neg Empty Can Test Results positve Drop Arm Rotator Cuff Test Results neg Sulcus Test Results neg AC Joint Compression Test Results neg Neural Special Tests- Upper Body Median Nerve Tension Test Results neg L Radial Nerve Tension Test Results positive L Ulnar Nerve Tension Test Results neg L PT-OP-M Strength Start: 03/12/24 11:29 Freq: Status: Active Protocol: Document 05/27/24 16:08 [facility] (Rec: 05/27/24 17:32 [facility] [id number]) Shoulder Strength Shoulder Manual Muscle Testing Left Flexion 5 Normal Extension 5 Normal Abduction (C5) 5 Normal External Rotation 5 Normal Internal Rotation 5 Normal Horizontal Abduction 5 Normal Horizontal Adduction 5 Normal Comments min pain Hip Strength Hip Manual Muscle Testing Right Flexion (L2) 4+ Good+ Extension (S1) 5 Normal Abduction 5 Normal Adduction 5 Normal External Rotation 5 Normal Internal Rotation 5 Normal Left Flexion (L2) 4 Good Extension (S1) 5 Normal Abduction 5 Normal Adduction 5 Normal External Rotation 5 Normal Internal Rotation 5 Normal Knee Strength Knee Manual Muscle Testing Right Flexion (S2) 5 Normal Extension (L3) 5 Normal Left Flexion (S2) 5 Normal Extension (L3) 5 Normal Ankle/Foot Strength Ankle and Foot Manual Muscle Testing Right Dorsiflexion (L4) 5 Normal Plantarflexion (S1) 5 Normal Inversion 5 Normal Eversion (S1) 5 Normal Comments B toe flex/ext toes 1-5: 5/5; 20 heel raises B Left Dorsiflexion (L4) 5 Normal Plantarflexion (S1) 5 Normal Inversion 4+ Good+ Eversion (S1) 5 Normal PT-OP-Q Treatments Start: 03/12/24 11:29 Freq: Status: Active Protocol: Document 06/29/24 08:23 [facility] (Rec: 06/29/24 11:01 [facility] [id number]) Therapeutic Exercises Sidelying Exercises open book Side bilateral Reps/Minutes 10 Comments cues for full tspine rot Standing Exercises squat Side bilateral Reps/Minutes 10 stretch Standing Exercise Name QL Side bilateral Manual Therapy Treatment Consent Patient gave verbal consent for manual Yes treatment Soft Tissue Mobilization back Body Location B ES & QL Mobilization Type Rolling Intensity/Depth Moderate Joint Mobilizations lumbar Comments s/l transverse L4 and 5 R FM innominate Comments L abd FM ribs Joint general lower rib depression w /ant eelvation pelvis PT-OP-T Assessment and Plan Start: 03/12/24 11:29 Freq: Status: Active Protocol: Document 06/29/24 08:23 [facility] (Rec: 06/29/24 11:01 [facility] [id number]) Physical Therapy Assessment Goals mobility Food Editor Goal (LTG) Pt will report no difficulty w /reaching L foot in shower or donning/doff shoes 05/27-improved ability to don/ doff shoes, still some limit in shower LTG Duration 07/29 strength Short Term Goal (STG) pt will be indep w/HEP STG Duration achieved advancing as able Prison Goal (LTG) Pt will score at least 5/5 on all BLE and UE MMT and at least 3/5 LPM in all planes to show improved stability to allow greater ease in daily activities. 05/27-mostly achieved LTG Duration 07/02 ROM Short Term Goal (STG) pt will have B DF to at least 4 in knee to wall position to dec tension on foot. 05/27-improved ROM signfiicantly STG Duration 06/20 Food Editor Goal (LTG) Pt will have full L shoulder ROM w/o inc pain 05/27-mostly full execpt abd limited w/some discomfort improved after manual LTG Duration 07/30 activities Short Term Goal (STG) Pt will be able to walk in any of his appropriate shoes w/o inc pain 05/27-foot feels good; some knee pain though STG Duration 06/20 Food Editor Goal (LTG) Pt will be able to do all of exercise program w/o inc pain and do all of heavy work around house/on boat w/o inc pain 05/27-sometimes foot pain occ and occ w/shoulder but it is better LTG Duration 07/30 Assessment Summary Assessment pt had improved ROM into lumbar B rotation and SB after manual treatment. Improved knee tracking also. Pt did well with exercises w/o inc pain. Physical Therapy Plan Frequency and Duration Frequency of Treatment 1-2x/wk Duration of treatment (weeks) 8 Plan of Care Start Date 05/27/24 Plan of Care End Date 07/30/24 Next Visit Focus/Plan Next Note Type Treatment Note Next Visit Plan focus on alignment of pelvis and trunk and stability for back
--- NOTE | 2024-07-06 10:41 | PT.OTN ---
Current Diagnoses Cutaneous abscess, unspecified (07/06/24) Pain in left upper arm (07/06/24) Pain in left foot (07/06/24) Abnormal posture (07/06/24) Other symptoms and signs involving the nervous system (07/06/24) Weakness (07/06/24) Physical Therapy Treatment Note PT-OP-A Visit Information Start: 03/12/24 11:29 Freq: Status: Active Protocol: Document 07/06/24 08:21 [facility] (Rec: 07/06/24 10:41 [facility] [id number]) Out-Patient Physical Therapy Visit Information Visit Information Visit Type Treatment Note Visit Note 04/10 Visit Start Time 08:20 Visit Stop Time 09:00 Visit Number 13 Number of PERSONAL INJURY PARALEGAL Visits 0 PT-OP-B Current Condition Start: 03/12/24 11:29 Freq: Status: Active Protocol: Document 03/24/24 07:34 [facility] (Rec: 03/24/24 09:04 [facility] [id number]) Current Condition History of Current Condition Current Complaints L foot pain, L shoulder pain, LBP History of Current Condition Pt reports L foot was really a problem for a couple months but is better. Unsure what started the foot pain. Foot pain was on plantar and dorsal surface sometimes. He uses superfeet. Pain was around base of [place]. Reports some toe walking as a kid. He put new superfeet in his shoes and that helped. [place] really [place] the [place] day and had pain w/walks. He has one pair of shoes that are more comfortable. He has L shoulder pain that is also a little better. He does have some lat shoulder pain that has been chronic. He does his band exercises and does notice it some w/abd and Hadd. SInce last bout of PT, back has been doing pretty good overalll. No referred pain. He does still have some difficulty w/reaching LLE. Treatment Goals Patient/Caregiver Goals reach L foot easier, less pain in L shoulder w/workouts and heavy work on boat etc. PT-OP-C Subjective Start: 03/12/24 11:29 Freq: Status: Active Protocol: Document 07/06/24 08:21 [facility] (Rec: 07/06/24 10:41 [facility] [id number]) OP-PT Subjective Patient Comments Patient Comments back seems better. He was sailing and tweaked his knee. He had to crawl around and be quick. When he got back, he could tell his knee was irritated. This was 2 days ago . PT-OP-J Posture/Palpation/Skin Start: 03/12/24 11:29 Freq: Status: Active Protocol: Document 05/27/24 16:08 [facility] (Rec: 05/27/24 17:32 [facility] [id number]) Posture Evaluation [facility] Postural Classification System Elbow Flexion Test 2 Lumbar Protective Mechanism Left AP 3 Lumbar Protective Mechanism Right AP 2 Lumbar Protective Mechanism Left PA 3 Lumbar Protective Mechanism Right PA 3 PT-OP-K Range of Motion Start: 03/12/24 11:29 Freq: Status: Active Protocol: Document 05/27/24 16:08 [facility] (Rec: 05/27/24 17:32 [facility] [id number]) Shoulder Goniometric Range of Motion Shoulder Left Active Flexion 154 Extension 63 Abduction 154 External Rotation at 90 degrees 80 Abduction Internal Rotation Behind Back (text) T9 Comments pain abd Ankle and Foot Goniometric Range of Motion Ankle and Foot Right Active Dorsiflexion with Knee Flexed 5 Dorsiflexion with Knee Extended 1 Left Active Dorsiflexion with Knee Flexed 6 Dorsiflexion with Knee Extended 1 PT-OP-L Special Tests Start: 03/12/24 11:29 Freq: Status: Active Protocol: Document 03/24/24 07:34 [facility] (Rec: 03/24/24 09:04 [facility] [id number]) Special Tests Lumbar Spine Special Tests Slump Test Results slight more Hs tension Shoulder Special Tests Durant Dimas Impingement Test Results positive L Neer Impingement Test Results minor pain at end range Goodhue Test Test Results neg L Speed's Biceps Test Results positive L Yergason's Biceps Test Results neg Empty Can Test Results positve Drop Arm Rotator Cuff Test Results neg Sulcus Test Results neg AC Joint Compression Test Results neg Neural Special Tests- Upper Body Median Nerve Tension Test Results neg L Radial Nerve Tension Test Results positive L Ulnar Nerve Tension Test Results neg L PT-OP-M Strength Start: 03/12/24 11:29 Freq: Status: Active Protocol: Document 05/27/24 16:08 [facility] (Rec: 05/27/24 17:32 [facility] [id number]) Shoulder Strength Shoulder Manual Muscle Testing Left Flexion 5 Normal Extension 5 Normal Abduction (C5) 5 Normal External Rotation 5 Normal Internal Rotation 5 Normal Horizontal Abduction 5 Normal Horizontal Adduction 5 Normal Comments min pain Hip Strength Hip Manual Muscle Testing Right Flexion (L2) 4+ Good+ Extension (S1) 5 Normal Abduction 5 Normal Adduction 5 Normal External Rotation 5 Normal Internal Rotation 5 Normal Left Flexion (L2) 4 Good Extension (S1) 5 Normal Abduction 5 Normal Adduction 5 Normal External Rotation 5 Normal Internal Rotation 5 Normal Knee Strength Knee Manual Muscle Testing Right Flexion (S2) 5 Normal Extension (L3) 5 Normal Left Flexion (S2) 5 Normal Extension (L3) 5 Normal Ankle/Foot Strength Ankle and Foot Manual Muscle Testing Right Dorsiflexion (L4) 5 Normal Plantarflexion (S1) 5 Normal Inversion 5 Normal Eversion (S1) 5 Normal Comments B toe flex/ext toes 1-5: 5/5; 20 heel raises B Left Dorsiflexion (L4) 5 Normal Plantarflexion (S1) 5 Normal Inversion 4+ Good+ Eversion (S1) 5 Normal PT-OP-Q Treatments Start: 03/12/24 11:29 Freq: Status: Active Protocol: Document 07/06/24 08:21 [facility] (Rec: 07/06/24 10:41 [facility] [id number]) Therapeutic Exercises Standing Exercises TKE Side left Equipment Used L3 Reps/Minutes 15 Comments cues quad activiation and neutral spine Other Exercises self mob Other Exercise Name 1. femur PA w/strap 2. fibula PA self pressure Side left Reps/Minutes 12 ea Comments quadruped w/rock backs Manual Therapy Treatment Consent Patient gave verbal consent for manual Yes treatment Soft Tissue Mobilization HS Body Location L Mobilization Type Rolling Comments supine w/quad set calf Body Location L med Mobilization Type Rolling Intensity/Depth Moderate Body Position Supine Comments w/quad set Joint Mobilizations tib fib Joint distal PA tib supine FM knee Comments 1. AP tibia w/IR FM 2. med glide femur FM 3. proximal fib PA FM hooklying PT-OP-T Assessment and Plan Start: 03/12/24 11:29 Freq: Status: Active Protocol: Document 07/06/24 08:21 [facility] (Rec: 07/06/24 10:41 [facility] [id number]) Physical Therapy Assessment Goals mobility Hand Stapler Goal (LTG) Pt will report no difficulty w /reaching L foot in shower or donning/doff shoes 05/27-improved ability to don/ doff shoes, still some limit in shower LTG Duration 07/29 strength Short Term Goal (STG) pt will be indep w/HEP STG Duration achieved advancing as able Assisted Goal (LTG) Pt will score at least 5/5 on all BLE and UE MMT and at least 3/5 LPM in all planes to show improved stability to allow greater ease in daily activities. 05/27-mostly achieved LTG Duration 07/02 ROM Short Term Goal (STG) pt will have B DF to at least 4 in knee to wall position to dec tension on foot. 05/27-improved ROM signfiicantly STG Duration 06/20 Hand Stapler Goal (LTG) Pt will have full L shoulder ROM w/o inc pain 05/27-mostly full execpt abd limited w/some discomfort improved after manual LTG Duration 07/30 activities Short Term Goal (STG) Pt will be able to walk in any of his appropriate shoes w/o inc pain 05/27-foot feels good; some knee pain though STG Duration 06/20 Assisted Goal (LTG) Pt will be able to do all of exercise program w/o inc pain and do all of heavy work around house/on boat w/o inc pain 05/27-sometimes foot pain occ and occ w/shoulder but it is better LTG Duration 07/30 Assessment Summary Assessment Pt had improved push off after manual today and noted less L knee pain Physical Therapy Plan Frequency and Duration Frequency of Treatment 1-2x/wk Duration of treatment (weeks) 8 Plan of Care Start Date 05/27/24 Plan of Care End Date 07/30/24 Next Visit Focus/Plan Next Note Type Treatment Note Next Visit Plan work on gait mechanics
--- NOTE | 2024-07-28 09:54 | PT.OTN ---
Current Diagnoses Cutaneous abscess, unspecified (07/28/24) Pain in left upper arm (07/28/24) Pain in left foot (07/28/24) Abnormal posture (07/28/24) Other symptoms and signs involving the nervous system (07/28/24) Weakness (07/28/24) Physical Therapy Treatment Note PT-OP-A Visit Information Start: 03/12/24 11:29 Freq: Status: Active Protocol: Document 07/28/24 08:15 [facility] (Rec: 07/28/24 09:05 [facility] [id number]) Out-Patient Physical Therapy Visit Information Visit Information Visit Type Progress Note Visit Start Time 08:16 Visit Stop Time 08:58 Visit Number 14 Number of COMPUTER TRAINER Visits 0 PT-OP-B Current Condition Start: 03/12/24 11:29 Freq: Status: Active Protocol: Document 03/24/24 07:34 [facility] (Rec: 03/24/24 09:04 [facility] [id number]) Current Condition History of Current Condition Current Complaints L foot pain, L shoulder pain, LBP History of Current Condition Pt reports L foot was really a problem for a couple months but is better. Unsure what started the foot pain. Foot pain was on plantar and dorsal surface sometimes. He uses superfeet. Pain was around base of [place]. Reports some toe walking as a kid. He put new superfeet in his shoes and that helped. [place] really [place] the [place] day and had pain w/walks. He has one pair of shoes that are more comfortable. He has L shoulder pain that is also a little better. He does have some lat shoulder pain that has been chronic. He does his band exercises and does notice it some w/abd and Hadd. SInce last bout of PT, back has been doing pretty good overalll. No referred pain. He does still have some difficulty w/reaching LLE. Treatment Goals Patient/Caregiver Goals reach L foot easier, less pain in L shoulder w/workouts and heavy work on boat etc. PT-OP-C Subjective Start: 03/12/24 11:29 Freq: Status: Active Protocol: Document 07/28/24 08:15 [facility] (Rec: 07/28/24 09:05 [facility] [id number]) OP-PT Subjective Patient Comments Patient Comments Pt reports today doing well but a week ago knee was doing really bad. He sees doctor in 2 weeks. He went to the [place] again and had quick exercising d/t knee and was lazy overall at [place], but its feeling better. he did exercises saturday and did walk some days. Saturday, the bottom of his foot is painful and it didn't get better during his walk. Took ibuprofen saturday and woke up and it was fine PT-OP-J Posture/Palpation/Skin Start: 03/12/24 11:29 Freq: Status: Active Protocol: Document 07/28/24 08:15 [facility] (Rec: 07/28/24 09:05 [facility] [id number]) Posture Evaluation [facility] Postural Classification System Elbow Flexion Test 5 Lumbar Protective Mechanism Left AP 3 Lumbar Protective Mechanism Right AP 3 Lumbar Protective Mechanism Left PA 3 Lumbar Protective Mechanism Right PA 3 PT-OP-K Range of Motion Start: 03/12/24 11:29 Freq: Status: Active Protocol: Document 07/28/24 08:15 [facility] (Rec: 07/28/24 09:05 [facility] [id number]) Ankle and Foot Goniometric Range of Motion Ankle and Foot ROM Limitations Comments 2 in to wall b PT-OP-L Special Tests Start: 03/12/24 11:29 Freq: Status: Active Protocol: Document 03/24/24 07:34 [facility] (Rec: 03/24/24 09:04 [facility] [id number]) Special Tests Lumbar Spine Special Tests Slump Test Results slight more Hs tension Shoulder Special Tests Durant Dimas Impingement Test Results positive L Neer Impingement Test Results minor pain at end range Jaffrey Test Test Results neg L Speed's Biceps Test Results positive L Yergason's Biceps Test Results neg Empty Can Test Results positve Drop Arm Rotator Cuff Test Results neg Sulcus Test Results neg AC Joint Compression Test Results neg Neural Special Tests- Upper Body Median Nerve Tension Test Results neg L Radial Nerve Tension Test Results positive L Ulnar Nerve Tension Test Results neg L PT-OP-M Strength Start: 03/12/24 11:29 Freq: Status: Active Protocol: Document 07/28/24 08:15 [facility] (Rec: 07/28/24 09:05 [facility] [id number]) Shoulder Strength Shoulder Manual Muscle Testing Left Flexion 5 Normal Extension 5 Normal Abduction (C5) 5 Normal External Rotation 5 Normal Internal Rotation 5 Normal Horizontal Abduction 5 Normal Horizontal Adduction 5 Normal Hip Strength Hip Manual Muscle Testing Right Flexion (L2) 5 Normal Extension (S1) 5 Normal Abduction 5 Normal Adduction 5 Normal External Rotation 5 Normal Internal Rotation 5 Normal Left Flexion (L2) 5 Normal Extension (S1) 5 Normal Abduction 5 Normal Adduction 5 Normal External Rotation 5 Normal Internal Rotation 5 Normal Knee Strength Knee Manual Muscle Testing Right Flexion (S2) 5 Normal Extension (L3) 5 Normal Left Flexion (S2) 5 Normal Extension (L3) 5 Normal Ankle/Foot Strength Ankle and Foot Manual Muscle Testing Right Dorsiflexion (L4) 5 Normal Plantarflexion (S1) 5 Normal Inversion 5 Normal Eversion (S1) 5 Normal Comments B toe flex/ext toes 1-5: 5/5; 20 heel raises B with pain 1st MTP Left Dorsiflexion (L4) 5 Normal Plantarflexion (S1) 5 Normal Inversion 5 Normal Eversion (S1) 5 Normal PT-OP-Q Treatments Start: 03/12/24 11:29 Freq: Status: Active Protocol: Document 07/28/24 08:15 [facility] (Rec: 07/28/24 09:05 [facility] [id number]) Therapeutic Exercises Sitting Exercises ROM Sitting Exercise Name big toe gentle stretch Side left Reps/Minutes 15 sec x4 Standing Exercises self mob Standing Exercise Name w.wedge and towel for pF Side left Reps/Minutes 10 Comments w/knee flex stretch Standing Exercise Name ankle ROM DF to wall Other Exercises self mob Other Exercise Name ankle 1/2 kneel Side left Equipment Used L5 band Reps/Minutes 10 isometrics Other Exercise Name LPM, EFT, BLE and BUE MMT Side bilateral Manual Therapy Treatment Soft Tissue Mobilization plantar fascia Body Location L Mobilization Type Rolling,Sustained Pressure, Other Intensity/Depth Moderate Comments STMs, pressure /c 1st great toe flex/ext Joint Mobilizations MTP Comments distraction and AP glide midfoot Joint L Comments navicular and cuneiform med FM PT-OP-T Assessment and Plan Start: 03/12/24 11:29 Freq: Status: Active Protocol: Document 07/28/24 08:15 [facility] (Rec: 07/28/24 09:05 [facility] [id number]) Physical Therapy Assessment Goals mobility Skilled Nursing Goal (LTG) Pt will report no difficulty w /reaching L foot in shower or donning/doff shoes 05/27-improved ability to don/ doff shoes, still some limit in shower LTG Duration achieved 07/28 strength Short Term Goal (STG) pt will be indep w/HEP STG Duration achieved advancing as able Mitigation Supervisor Goal (LTG) Pt will score at least 5/5 on all BLE and UE MMT and at least 3/5 LPM in all planes to show improved stability to allow greater ease in daily activities. 05/27-mostly achieved LTG Duration achieved 07/28 ROM Short Term Goal (STG) pt will have B DF to at least 4 in knee to wall position to dec tension on foot. 05/27-improved ROM signfiicantly 07/28-2 in B STG Duration 08/31 Mitigation Supervisor Goal (LTG) Pt will have full L shoulder ROM w/o inc pain 05/27-mostly full execpt abd limited w/some discomfort improved after manual LTG Duration achieved 07/28 activities Short Term Goal (STG) Pt will be able to walk in any of his appropriate shoes w/o inc pain 05/27-foot feels good; some knee pain though 07/28-intermittent foot pain STG Duration 08/13 Mitigation Supervisor Goal (LTG) Pt will be able to do all of exercise program w/o inc pain and do all of heavy work around house/on boat w/o inc pain 05/27-sometimes foot pain occ and occ w/shoulder but it is better 07/28-knee and occ foot issues LTG Duration 09/30 Assessment Summary Assessment Pt had improved shoulder mobility and strength w/less pain. Improved strength overall but some pain in foot w/heel raises. Knee and foot occ inc pain w/walking. Cont PT to focus on L knee/foot mobility to improve functional mobility Physical Therapy Plan Frequency and Duration Frequency of Treatment 1x/wk Duration of treatment (weeks) 8 Plan of Care Start Date 07/28/24 Plan of Care End Date 09/30/24 Therapeutic Interventions Therapeutic Interventions Balance Training,Gait Training ,Home Exercise Program,Joint Mobilizations,Manual Therapy, Neuromuscular Re-education, Orthotic/Prosthetic Management ,Patient/Caregiver Education, Self-Care/Home Management,Soft Tissue Mobilization,Taping, Therapeutic Activities, Therapeutic Exercises Modalities Cold Pack/Ice Massage,Electric Stimulation,Hot Packs Next Visit Focus/Plan Next Note Type Treatment Note
--- NOTE | 2024-07-28 09:55 | PT.OPPOC ---
Physical, Occupational & Speech Therapy At Current Diagnoses Cutaneous abscess, unspecified (07/28/24) Pain in left upper arm (07/28/24) Pain in left foot (07/28/24) Abnormal posture (07/28/24) Other symptoms and signs involving the nervous system (07/28/24) Weakness (07/28/24) Visit Care Team Role Provider Type Sandy Nayak DO Attending Provider Physician Family Provider Primary Care Provider Referring Provider Specialty: [facility] Practice Address: [address] [place] [address], [address], [address] Email: [email or web address] Plan Of Care PT-OP-B Current Condition Start: 03/12/24 11:29 Freq: Status: Active Protocol: Document 03/24/24 07:34 [facility] (Rec: 03/24/24 09:04 [facility] [id number]) Current Condition History of Current Condition Current Complaints L foot pain, L shoulder pain, LBP History of Current Condition Pt reports L foot was really a problem for a couple months but is better. Unsure what started the foot pain. Foot pain was on plantar and dorsal surface sometimes. He uses superfeet. Pain was around base of [place]. Reports some toe walking as a kid. He put new superfeet in his shoes and that helped. [place] really [place] the [place] day and had pain w/walks. He has one pair of shoes that are more comfortable. He has L shoulder pain that is also a little better. He does have some lat shoulder pain that has been chronic. He does his band exercises and does notice it some w/abd and Hadd. SInce last bout of PT, back has been doing pretty good overalll. No referred pain. He does still have some difficulty w/reaching LLE. Treatment Goals Patient/Caregiver Goals reach L foot easier, less pain in L shoulder w/workouts and heavy work on boat etc. PT-OP-T Assessment and Plan Start: 03/12/24 11:29 Freq: Status: Active Protocol: Document 07/28/24 08:15 [facility] (Rec: 07/28/24 09:05 [facility] [id number]) Physical Therapy Assessment Goals mobility German Instructor Goal (LTG) Pt will report no difficulty w /reaching L foot in shower or donning/doff shoes 05/27-improved ability to don/ doff shoes, still some limit in shower LTG Duration achieved 07/28 strength Short Term Goal (STG) pt will be indep w/HEP STG Duration achieved advancing as able German Instructor Goal (LTG) Pt will score at least 5/5 on all BLE and UE MMT and at least 3/5 LPM in all planes to show improved stability to allow greater ease in daily activities. 05/27-mostly achieved LTG Duration achieved 07/28 ROM Short Term Goal (STG) pt will have B DF to at least 4 in knee to wall position to dec tension on foot. 05/27-improved ROM signfiicantly 07/28-2 in B STG Duration 08/31 German Instructor Goal (LTG) Pt will have full L shoulder ROM w/o inc pain 05/27-mostly full execpt abd limited w/some discomfort improved after manual LTG Duration achieved 07/28 activities Short Term Goal (STG) Pt will be able to walk in any of his appropriate shoes w/o inc pain 05/27-foot feels good; some knee pain though 07/28-intermittent foot pain STG Duration 08/13 Longterm Goal (LTG) Pt will be able to do all of exercise program w/o inc pain and do all of heavy work around house/on boat w/o inc pain 05/27-sometimes foot pain occ and occ w/shoulder but it is better 07/28-knee and occ foot issues LTG Duration 09/30 Assessment Summary Assessment Pt had improved shoulder mobility and strength w/less pain. Improved strength overall but some pain in foot w/heel raises. Knee and foot occ inc pain w/walking. Cont PT to focus on L knee/foot mobility to improve functional mobility Physical Therapy Plan Frequency and Duration Frequency of Treatment 1x/wk Duration of treatment (weeks) 8 Plan of Care Start Date 07/28/24 Plan of Care End Date 09/30/24 Therapeutic Interventions Therapeutic Interventions Balance Training,Gait Training ,Home Exercise Program,Joint Mobilizations,Manual Therapy, Neuromuscular Re-education, Orthotic/Prosthetic Management ,Patient/Caregiver Education, Self-Care/Home Management,Soft Tissue Mobilization,Taping, Therapeutic Activities, Therapeutic Exercises Modalities Cold Pack/Ice Massage,Electric Stimulation,Hot Packs Next Visit Focus/Plan Next Note Type Treatment Note Plan of Care Dates Plan of Care Start Date 07/28/24 Plan of Care End Date 09/30/24 Electronically Signed by: Valentine Olivera, PT 07/28/24 0955 If you are in agreement with this Plan of Care, please return a signed and dated copy. I have reviewed this Plan of Care and certify that the skilled therapy services above are required to meet the patient?s needs. Physician Signature Date Printed Name and Credentials Clinical Instructor Signature Printed Name and Credentials
--- NOTE | 2024-08-04 09:03 | PT.OTN ---
Current Diagnoses Cutaneous abscess, unspecified (08/04/24) Pain in left upper arm (08/04/24) Pain in left foot (08/04/24) Abnormal posture (08/04/24) Other symptoms and signs involving the nervous system (08/04/24) Weakness (08/04/24) Physical Therapy Treatment Note PT-OP-A Visit Information Start: 03/12/24 11:29 Freq: Status: Active Protocol: Document 08/04/24 07:35 [facility] (Rec: 08/04/24 09:03 [facility] [id number]) Out-Patient Physical Therapy Visit Information Visit Information Visit Type Treatment Note Visit Start Time 07:34 Visit Stop Time 08:14 Visit Number 15 Number of TRANSFER WORKER Visits 0 PT-OP-B Current Condition Start: 03/12/24 11:29 Freq: Status: Active Protocol: Document 03/24/24 07:34 [facility] (Rec: 03/24/24 09:04 [facility] [id number]) Current Condition History of Current Condition Current Complaints L foot pain, L shoulder pain, LBP History of Current Condition Pt reports L foot was really a problem for a couple months but is better. Unsure what started the foot pain. Foot pain was on plantar and dorsal surface sometimes. He uses superfeet. Pain was around base of 1st MT. Reports some toe walking as a kid. He put new superfeet in his shoes and that helped. [place] really [place] the next day and had pain w/walks. He has one pair of shoes that are more comfortable. He has L shoulder pain that is also a little better. He does have some lat shoulder pain that has been chronic. He does his band exercises and does notice it some w/abd and Hadd. SInce last bout of PT, back has been doing pretty good overalll. No referred pain. He does still have some difficulty w/reaching LLE. Treatment Goals Patient/Caregiver Goals reach L foot easier, less pain in L shoulder w/workouts and heavy work on boat etc. PT-OP-C Subjective Start: 03/12/24 11:29 Freq: Status: Active Protocol: Document 08/04/24 07:35 [facility] (Rec: 08/04/24 09:03 [facility] [id number]) OP-PT Subjective Patient Comments Patient Comments Pt reports knee hasn't been painful. He woke saturday and ball of foot hurt. He took some of his gout meds for 2 days and didn't do anything. has been icing. may be minorly better. avoiding walks but did his exercises. Walks on side of foot to avoid L MTP. Back feeling okay also. PT-OP-J Posture/Palpation/Skin Start: 03/12/24 11:29 Freq: Status: Active Protocol: Document 07/28/24 08:15 [facility] (Rec: 07/28/24 09:05 [facility] [id number]) Posture Evaluation [facility] Postural Classification System Elbow Flexion Test 5 Lumbar Protective Mechanism Left AP 3 Lumbar Protective Mechanism Right AP 3 Lumbar Protective Mechanism Left PA 3 Lumbar Protective Mechanism Right PA 3 PT-OP-K Range of Motion Start: 03/12/24 11:29 Freq: Status: Active Protocol: Document 07/28/24 08:15 [facility] (Rec: 07/28/24 09:05 [facility] [id number]) Ankle and Foot Goniometric Range of Motion Ankle and Foot ROM Limitations Comments 2 in to wall b PT-OP-L Special Tests Start: 03/12/24 11:29 Freq: Status: Active Protocol: Document 03/24/24 07:34 [facility] (Rec: 03/24/24 09:04 [facility] [id number]) Special Tests Lumbar Spine Special Tests Slump Test Results slight more Hs tension Shoulder Special Tests Dur[place] Dimas Impingement Test Results positive L Neer Impingement Test Results minor pain at end range [place] Test Test Results neg L Speed's Biceps Test Results positive L Yergason's Biceps Test Results neg Empty Can Test Results positve Drop Arm Rotator Cuff Test Results neg Sulcus Test Results neg AC Joint Compression Test Results neg Neural Special Tests- Upper Body Median Nerve Tension Test Results neg L Radial Nerve Tension Test Results positive L Ulnar Nerve Tension Test Results neg L PT-OP-M Strength Start: 03/12/24 11:29 Freq: Status: Active Protocol: Document 07/28/24 08:15 [facility] (Rec: 07/28/24 09:05 [facility] [id number]) Shoulder Strength Shoulder Manual Muscle Testing Left Flexion 5 Normal Extension 5 Normal Abduction (C5) 5 Normal External Rotation 5 Normal Internal Rotation 5 Normal Horizontal Abduction 5 Normal Horizontal Adduction 5 Normal Hip Strength Hip Manual Muscle Testing Right Flexion (L2) 5 Normal Extension (S1) 5 Normal Abduction 5 Normal Adduction 5 Normal External Rotation 5 Normal Internal Rotation 5 Normal Left Flexion (L2) 5 Normal Extension (S1) 5 Normal Abduction 5 Normal Adduction 5 Normal External Rotation 5 Normal Internal Rotation 5 Normal Knee Strength Knee Manual Muscle Testing Right Flexion (S2) 5 Normal Extension (L3) 5 Normal Left Flexion (S2) 5 Normal Extension (L3) 5 Normal Ankle/Foot Strength Ankle and Foot Manual Muscle Testing Right Dorsiflexion (L4) 5 Normal Plantarflexion (S1) 5 Normal Inversion 5 Normal Eversion (S1) 5 Normal Comments B toe flex/ext toes 1-5: 5/5; 20 heel raises B with pain 1st MTP Left Dorsiflexion (L4) 5 Normal Plantarflexion (S1) 5 Normal Inversion 5 Normal Eversion (S1) 5 Normal PT-OP-Q Treatments Start: 03/12/24 11:29 Freq: Status: Active Protocol: Document 08/04/24 07:35 [facility] (Rec: 08/04/24 09:03 [facility] [id number]) Therapeutic Exercises Standing Exercises df Standing Exercise Name back at wall Side bilateral Reps/Minutes 20 self mob Standing Exercise Name w/towel under toes and towel for heel Side left Reps/Minutes 10 Comments w/knee flex TKE Side left Equipment Used L5 Reps/Minutes 15 Comments cues quad activiation and neutral spine Other Exercises roll out Other Exercise Name B calf Side bilateral Reps/Minutes 2 min Comments foam roll self mob Other Exercise Name ankle 1/2 kneel Side left Equipment Used L5 band Reps/Minutes 10 PT-OP-T Assessment and Plan Start: 03/12/24 11:29 Freq: Status: Active Protocol: Document 08/04/24 07:35 [facility] (Rec: 08/04/24 09:03 [facility] [id number]) Physical Therapy Assessment Goals mobility Motor Route Carrier Goal (LTG) Pt will report no difficulty w /reaching L foot in shower or donning/doff shoes 05/27-improved ability to don/ doff shoes, still some limit in shower LTG Duration achieved 07/28 strength Short Term Goal (STG) pt will be indep w/HEP STG Duration achieved advancing as able Intermediate Goal (LTG) Pt will score at least 5/5 on all BLE and UE MMT and at least 3/5 LPM in all planes to show improved stability to allow greater ease in daily activities. 05/27-mostly achieved LTG Duration achieved 07/28 ROM Short Term Goal (STG) pt will have B DF to at least 4 in knee to wall position to dec tension on foot. 05/27-improved ROM signfiicantly 07/28-2 in B STG Duration 08/31 Motor Route Carrier Goal (LTG) Pt will have full L shoulder ROM w/o inc pain 05/27-mostly full execpt abd limited w/some discomfort improved after manual LTG Duration achieved 07/28 activities Short Term Goal (STG) Pt will be able to walk in any of his appropriate shoes w/o inc pain 05/27-foot feels good; some knee pain though 07/28-intermittent foot pain STG Duration 08/13 Motor Route Carrier Goal (LTG) Pt will be able to do all of exercise program w/o inc pain and do all of heavy work around house/on boat w/o inc pain 05/27-sometimes foot pain occ and occ w/shoulder but it is better 07/28-knee and occ foot issues LTG Duration 09/30 Assessment Summary Assessment Pt did well w/previously prescribed exercises. Cues needed for set up minimally throughout. stopped self toe ext stretch d/t some pain noted w/this. Improved ankle DF after manaul Physical Therapy Plan Frequency and Duration Frequency of Treatment 1x/wk Duration of treatment (weeks) 8 Plan of Care Start Date 07/28/24 Plan of Care End Date 09/30/24 Next Visit Focus/Plan Next Note Type Treatment Note Next Visit Plan cont to work on foot/ankle mobility
--- NOTE | 2024-08-25 09:00 | PT.OTN ---
Current Diagnoses Cutaneous abscess, unspecified (08/25/24) Pain in left upper arm (08/25/24) Pain in left foot (08/25/24) Abnormal posture (08/25/24) Other symptoms and signs involving the nervous system (08/25/24) Weakness (08/25/24) Physical Therapy Treatment Note PT-OP-A Visit Information Start: 03/12/24 11:29 Freq: Status: Active Protocol: Document 08/25/24 08:20 [facility] (Rec: 08/25/24 09:03 [facility] [id number]) Out-Patient Physical Therapy Visit Information Visit Information Visit Type Treatment Note Visit Note 02/08 after PN Visit Start Time 08:20 Visit Stop Time 09:00 Visit Number 16 Number of PIT CREW SUPPORT WORKER Visits 1 PT-OP-B Current Condition Start: 03/12/24 11:29 Freq: Status: Active Protocol: Document 03/24/24 07:34 [facility] (Rec: 03/24/24 09:04 [facility] [id number]) Current Condition History of Current Condition Current Complaints L foot pain, L shoulder pain, LBP History of Current Condition Pt reports L foot was really a problem for a couple months but is better. Unsure what started the foot pain. Foot pain was on plantar and dorsal surface sometimes. He uses superfeet. Pain was around base of 1st MT. Reports some toe walking as a kid. He put new superfeet in his shoes and that helped. [place] really [place] the next day and had pain w/walks. He has one pair of shoes that are more comfortable. He has L shoulder pain that is also a little better. He does have some lat shoulder pain that has been chronic. He does his band exercises and does notice it some w/abd and Hadd. SInce last bout of PT, back has been doing pretty good overalll. No referred pain. He does still have some difficulty w/reaching LLE. Treatment Goals Patient/Caregiver Goals reach L foot easier, less pain in L shoulder w/workouts and heavy work on boat etc. PT-OP-C Subjective Start: 03/12/24 11:29 Freq: Status: Active Protocol: Document 08/25/24 08:20 [facility] (Rec: 08/25/24 09:03 [facility] [id number]) OP-PT Subjective Patient Comments Patient Comments Pt reports MTP L and now dorsal R foot hurting. Hx broke R foot in past. Has appt with police superintendent in [place] in 2 weeks Sep 10 for further assessment pain in L>R feet. PT-OP-J Posture/Palpation/Skin Start: 03/12/24 11:29 Freq: Status: Active Protocol: Document 07/28/24 08:15 [facility] (Rec: 07/28/24 09:05 [facility] [id number]) Posture Evaluation [facility] Postural Classification System Elbow Flexion Test 5 Lumbar Protective Mechanism Left AP 3 Lumbar Protective Mechanism Right AP 3 Lumbar Protective Mechanism Left PA 3 Lumbar Protective Mechanism Right PA 3 PT-OP-K Range of Motion Start: 03/12/24 11:29 Freq: Status: Active Protocol: Document 07/28/24 08:15 [facility] (Rec: 07/28/24 09:05 [facility] [id number]) Ankle and Foot Goniometric Range of Motion Ankle and Foot ROM Limitations Comments 2 in to wall b PT-OP-L Special Tests Start: 03/12/24 11:29 Freq: Status: Active Protocol: Document 03/24/24 07:34 [facility] (Rec: 03/24/24 09:04 [facility] [id number]) Special Tests Lumbar Spine Special Tests Slump Test Results slight more Hs tension Shoulder Special Tests [place] Impingement Test Results positive L Neer Impingement Test Results minor pain at end range [place] Test Test Results neg L Speed's Biceps Test Results positive L Yergason's Biceps Test Results neg Empty Can Test Results positve Drop Arm Rotator Cuff Test Results neg Sulcus Test Results neg AC Joint Compression Test Results neg Neural Special Tests- Upper Body Median Nerve Tension Test Results neg L Radial Nerve Tension Test Results positive L Ulnar Nerve Tension Test Results neg L PT-OP-M Strength Start: 03/12/24 11:29 Freq: Status: Active Protocol: Document 07/28/24 08:15 [facility] (Rec: 07/28/24 09:05 [facility] [id number]) Shoulder Strength Shoulder Manual Muscle Testing Left Flexion 5 Normal Extension 5 Normal Abduction (C5) 5 Normal External Rotation 5 Normal Internal Rotation 5 Normal Horizontal Abduction 5 Normal Horizontal Adduction 5 Normal Hip Strength Hip Manual Muscle Testing Right Flexion (L2) 5 Normal Extension (S1) 5 Normal Abduction 5 Normal Adduction 5 Normal External Rotation 5 Normal Internal Rotation 5 Normal Left Flexion (L2) 5 Normal Extension (S1) 5 Normal Abduction 5 Normal Adduction 5 Normal External Rotation 5 Normal Internal Rotation 5 Normal Knee Strength Knee Manual Muscle Testing Right Flexion (S2) 5 Normal Extension (L3) 5 Normal Left Flexion (S2) 5 Normal Extension (L3) 5 Normal Ankle/Foot Strength Ankle and Foot Manual Muscle Testing Right Dorsiflexion (L4) 5 Normal Plantarflexion (S1) 5 Normal Inversion 5 Normal Eversion (S1) 5 Normal Comments B toe flex/ext toes 1-5: 5/5; 20 heel raises B with pain 1st MTP Left Dorsiflexion (L4) 5 Normal Plantarflexion (S1) 5 Normal Inversion 5 Normal Eversion (S1) 5 Normal PT-OP-Q Treatments Start: 03/12/24 11:29 Freq: Status: Active Protocol: Document 08/25/24 08:20 [facility] (Rec: 08/25/24 09:03 [facility] [id number]) Therapeutic Exercises Standing Exercises SL star glides Standing Exercise Name trialed inPT - self ex doing home Side bilateral Resistance Tb #3 green at ankles Other Exercises self mob Other Exercise Name ankle standing ft on elevated 1 step Side left Resistance L5 band dark blue at ankles Reps/Minutes 10 Comments pnfree ankle and knee mobility Manual Therapy Treatment Soft Tissue Mobilization plantar fascia Body Location L Mobilization Type Rolling,Sustained Pressure, Other Intensity/Depth Moderate Comments STMs, pressure /c 1st great toe flex/ext Joint Mobilizations B ankles Joint talocrual PA, MTP A<>P& rot 1 more than 4-5, calcaneal med lat, tib-fib PA Grade II Comments improved jose PT-OP-T Assessment and Plan Start: 03/12/24 11:29 Freq: Status: Active Protocol: Document 08/25/24 08:20 [facility] (Rec: 08/25/24 09:03 [facility] [id number]) Physical Therapy Assessment Goals mobility Nursing Home Goal (LTG) Pt will report no difficulty w /reaching L foot in shower or donning/doff shoes 05/27-improved ability to don/ doff shoes, still some limit in shower LTG Duration achieved 07/28 strength Short Term Goal (STG) pt will be indep w/HEP STG Duration achieved advancing as able Nursing Home Goal (LTG) Pt will score at least 5/5 on all BLE and UE MMT and at least 3/5 LPM in all planes to show improved stability to allow greater ease in daily activities. 05/27-mostly achieved LTG Duration achieved 07/28 ROM Short Term Goal (STG) pt will have B DF to at least 4 in knee to wall position to dec tension on foot. 05/27-improved ROM signfiicantly 07/28-2 in B STG Duration 08/31 Nursing Home Goal (LTG) Pt will have full L shoulder ROM w/o inc pain 05/27-mostly full execpt abd limited w/some discomfort improved after manual LTG Duration achieved 07/28 activities Short Term Goal (STG) Pt will be able to walk in any of his appropriate shoes w/o inc pain 05/27-foot feels good; some knee pain though 07/28-intermittent foot pain STG Duration 08/13 Sap Functional Analyst Goal (LTG) Pt will be able to do all of exercise program w/o inc pain and do all of heavy work around house/on boat w/o inc pain 05/27-sometimes foot pain occ and occ w/shoulder but it is better 07/28-knee and occ foot issues LTG Duration 09/30 Assessment Summary Assessment Tx focused on L ankle mobility manual and education review self application knee flexion & ankle DF mobiltiy with TB anterior L ankle on 1st step with good feedback increased ROM. Trialed SLS star glides with TB increase SLS time and ankle mobility with hip abd strengthtening, pt reports has done this in his past. Pt reports slight reduction foot pain and improved DF end tx. Physical Therapy Plan Frequency and Duration Frequency of Treatment 1x/wk Duration of treatment (weeks) 8 Plan of Care Start Date 07/28/24 Plan of Care End Date 09/30/24 Therapeutic Interventions Therapeutic Interventions Balance Training,Gait Training ,Home Exercise Program,Joint Mobilizations,Manual Therapy, Neuromuscular Re-education, Orthotic/Prosthetic Management ,Patient/Caregiver Education, Self-Care/Home Management,Soft Tissue Mobilization,Taping, Therapeutic Activities, Therapeutic Exercises Modalities Cold Pack/Ice Massage,Electric Stimulation,Hot Packs Next Visit Focus/Plan Next Note Type Treatment Note Next Visit Plan 4 more scheduled appts but update POC in 3 visits, exp . POC: cont to work on foot/ ankle mobility
--- NOTE | 2024-09-08 13:34 | PT.OTN ---
Current Diagnoses Cutaneous abscess, unspecified (09/08/24) Pain in left upper arm (09/08/24) Pain in left foot (09/08/24) Abnormal posture (09/08/24) Other symptoms and signs involving the nervous system (09/08/24) Weakness (09/08/24) Physical Therapy Treatment Note PT-OP-A Visit Information Start: 03/12/24 11:29 Freq: Status: Active Protocol: Document 09/08/24 08:22 [facility] (Rec: 09/08/24 13:33 [facility] [id number]) Out-Patient Physical Therapy Visit Information Visit Information Visit Type Progress Note Visit Start Time 08:18 Visit Stop Time 08:59 Visit Number 17 Number of HORSE RACING ANALYST Visits 0 PT-OP-B Current Condition Start: 03/12/24 11:29 Freq: Status: Active Protocol: Document 03/24/24 07:34 [facility] (Rec: 03/24/24 09:04 [facility] [id number]) Current Condition History of Current Condition Current Complaints L foot pain, L shoulder pain, LBP History of Current Condition Pt reports L foot was really a problem for a couple months but is better. Unsure what started the foot pain. Foot pain was on plantar and dorsal surface sometimes. He uses superfeet. Pain was around base of 1st [place]. Reports some toe walking as a kid. He put new superfeet in his shoes and that helped. [place] really [place] the [place] day and had pain w/walks. He has one pair of shoes that are more comfortable. He has L shoulder pain that is also a little better. He does have some lat shoulder pain that has been chronic. He does his band exercises and does notice it some w/abd and Hadd. SInce last bout of PT, back has been doing pretty good overalll. No referred pain. He does still have some difficulty w/reaching LLE. Treatment Goals Patient/Caregiver Goals reach L foot easier, less pain in L shoulder w/workouts and heavy work on boat etc. PT-OP-C Subjective Start: 03/12/24 11:29 Freq: Status: Active Protocol: Document 09/08/24 08:22 [facility] (Rec: 09/08/24 13:33 [facility] [id number]) OP-PT Subjective Patient Comments Patient Comments Pt hiking but R foot bothers him more than anything. L knee feels a little off but isn't bothering him too much. By 6 pm has to get off his feet d/t R foot pain. PT-OP-J Posture/Palpation/Skin Start: 03/12/24 11:29 Freq: Status: Active Protocol: Document 07/28/24 08:15 [facility] (Rec: 07/28/24 09:05 [facility] [id number]) Posture Evaluation [facility] Postural Classification System Elbow Flexion Test 5 Lumbar Protective Mechanism Left AP 3 Lumbar Protective Mechanism Right AP 3 Lumbar Protective Mechanism Left PA 3 Lumbar Protective Mechanism Right PA 3 PT-OP-K Range of Motion Start: 03/12/24 11:29 Freq: Status: Active Protocol: Document 09/08/24 08:22 [facility] (Rec: 09/08/24 13:33 [facility] [id number]) Ankle and Foot Goniometric Range of Motion Ankle and Foot Right Active Dorsiflexion with Knee Flexed 2 Dorsiflexion with Knee Extended 1 Left Active Dorsiflexion with Knee Flexed 3 Dorsiflexion with Knee Extended 0 PT-OP-L Special Tests Start: 03/12/24 11:29 Freq: Status: Active Protocol: Document 03/24/24 07:34 [facility] (Rec: 03/24/24 09:04 [facility] [id number]) Special Tests Lumbar Spine Special Tests Slump Test Results slight more Hs tension Shoulder Special Tests Durant Dimas Impingement Test Results positive L Neer Impingement Test Results minor pain at end range [place] Test Test Results neg L Speed's Biceps Test Results positive L Yergason's Biceps Test Results neg Empty Can Test Results positve Drop Arm Rotator Cuff Test Results neg Sulcus Test Results neg AC Joint Compression Test Results neg Neural Special Tests- Upper Body Median Nerve Tension Test Results neg L Radial Nerve Tension Test Results positive L Ulnar Nerve Tension Test Results neg L PT-OP-M Strength Start: 03/12/24 11:29 Freq: Status: Active Protocol: Document 07/28/24 08:15 [facility] (Rec: 07/28/24 09:05 [facility] [id number]) Shoulder Strength Shoulder Manual Muscle Testing Left Flexion 5 Normal Extension 5 Normal Abduction (C5) 5 Normal External Rotation 5 Normal Internal Rotation 5 Normal Horizontal Abduction 5 Normal Horizontal Adduction 5 Normal Hip Strength Hip Manual Muscle Testing Right Flexion (L2) 5 Normal Extension (S1) 5 Normal Abduction 5 Normal Adduction 5 Normal External Rotation 5 Normal Internal Rotation 5 Normal Left Flexion (L2) 5 Normal Extension (S1) 5 Normal Abduction 5 Normal Adduction 5 Normal External Rotation 5 Normal Internal Rotation 5 Normal Knee Strength Knee Manual Muscle Testing Right Flexion (S2) 5 Normal Extension (L3) 5 Normal Left Flexion (S2) 5 Normal Extension (L3) 5 Normal Ankle/Foot Strength Ankle and Foot Manual Muscle Testing Right Dorsiflexion (L4) 5 Normal Plantarflexion (S1) 5 Normal Inversion 5 Normal Eversion (S1) 5 Normal Comments B toe flex/ext toes 1-5: 5/5; 20 heel raises B with pain 1st MTP Left Dorsiflexion (L4) 5 Normal Plantarflexion (S1) 5 Normal Inversion 5 Normal Eversion (S1) 5 Normal PT-OP-Q Treatments Start: 03/12/24 11:29 Freq: Status: Active Protocol: Document 09/08/24 08:22 [facility] (Rec: 09/08/24 13:33 [facility] [id number]) Manual Therapy Treatment Soft Tissue Mobilization calf Body Location L calf and achilles Mobilization Type Rolling Intensity/Depth Moderate Body Position Supine plantar fascia Body Location L Mobilization Type Rolling,Sustained Pressure, Other Intensity/Depth Moderate Comments w/gentle big toe ext Joint Mobilizations tib fib Comments L sup fib and AP distal tib c/ r MTP Comments distraction and AP glide midfoot Joint L Comments 1-2 cuneiform med FM rearfoot Comments calcaneal distraction L; L talus med glide Self-Care/Home Management Treatment Education Other Education 16 min: edu re: talking letter stamping machine operator about R foot treatment and plant o keep up this case for L foot treatment . Discussed w/pt importance of rolling out calf and plantar fascia. discussed use of heat as pt noted this feels more relief so encourage to use at end of day. PT-OP-T Assessment and Plan Start: 03/12/24 11:29 Freq: Status: Active Protocol: Document 09/08/24 08:22 [facility] (Rec: 09/08/24 13:33 [facility] [id number]) Physical Therapy Assessment Goals mobility Coal Shoveler Goal (LTG) Pt will report no difficulty w /reaching L foot in shower or donning/doff shoes 05/27-improved ability to don/ doff shoes, still some limit in shower LTG Duration achieved 07/28 strength Short Term Goal (STG) pt will be indep w/HEP STG Duration achieved advancing as able Coal Shoveler Goal (LTG) Pt will score at least 5/5 on all BLE and UE MMT and at least 3/5 LPM in all planes to show improved stability to allow greater ease in daily activities. 05/27-mostly achieved LTG Duration achieved 07/28 ROM Short Term Goal (STG) pt will have B DF to at least 4 in knee to wall position to dec tension on foot. 05/27-improved ROM signfiicantly 07/28-2 in B STG Duration 09/20 Coal Shoveler Goal (LTG) Pt will have full L shoulder ROM w/o inc pain 05/27-mostly full execpt abd limited w/some discomfort improved after manual LTG Duration achieved 07/28 activities Short Term Goal (STG) Pt will be able to walk in any of his appropriate shoes w/o inc pain 05/27-foot feels good; some knee pain though 07/28-intermittent foot pain 09/08-has been doing walks but does not R>L foot pain STG Duration 09/20 Coal Shoveler Goal (LTG) Pt will be able to do all of exercise program w/o inc pain and do all of heavy work around house/on boat w/o inc pain 05/27-sometimes foot pain occ and occ w/shoulder but it is better 07/28-knee and occ foot issues 09/08-returnd to full exercises w/o pain; heavy work can inc pain LTG Duration 10/19 Assessment Summary Assessment Pt has made good progress w/PT but does still note L foot discomofrt w/activity but R foot has started having pain also> pt to see ortho re: this and will get more information and determine if needs to start new chart to focus on B feet. at this time, cont PT for L foot pain as it cont to limit his daily activity Physical Therapy Plan Frequency and Duration Frequency of Treatment 1x/wk Duration of treatment (weeks) 6 Plan of Care Start Date 09/08/24 Plan of Care End Date 10/20/24 Therapeutic Interventions Therapeutic Interventions Balance Training,Gait Training ,Home Exercise Program,Joint Mobilizations,Manual Therapy, Neuromuscular Re-education, Orthotic/Prosthetic Management ,Patient/Caregiver Education, Self-Care/Home Management,Soft Tissue Mobilization,Taping, Therapeutic Activities, Therapeutic Exercises Modalities Cold Pack/Ice Massage,Electric Stimulation,Hot Packs Next Visit Focus/Plan Next Note Type Treatment Note Next Visit Plan 4 more scheduled appts but update POC in 3 visits, exp . POC: cont to work on foot/ ankle mobility
--- NOTE | 2024-09-08 13:34 | PT.OPPOC ---
Physical, Occupational & Speech Therapy At [facility] Current Diagnoses Cutaneous abscess, unspecified (09/08/24) Pain in left upper arm (09/08/24) Pain in left foot (09/08/24) Abnormal posture (09/08/24) Other symptoms and signs involving the nervous system (09/08/24) Weakness (09/08/24) Visit Care Team Role Provider Type Sandy Nayak DO Attending Provider Physician Family Provider Primary Care Provider Referring Provider Specialty: [facility] Practice Address: [address] [place] [address], [address], [facility] Email: [email or web address] Plan Of Care PT-OP-B Current Condition Start: 03/12/24 11:29 Freq: Status: Active Protocol: Document 03/24/24 07:34 [facility] (Rec: 03/24/24 09:04 [facility] [id number]) Current Condition History of Current Condition Current Complaints L foot pain, L shoulder pain, LBP History of Current Condition Pt reports L foot was really a problem for a couple months but is better. Unsure what started the foot pain. Foot pain was on plantar and dorsal surface sometimes. He uses superfeet. Pain was around base of 1st [place]. Reports some toe walking as a kid. He put new superfeet in his shoes and that helped. [place] really hurt the next day and had pain w/walks. He has one pair of shoes that are more comfortable. He has L shoulder pain that is also a little better. He does have some lat shoulder pain that has been chronic. He does his band exercises and does notice it some w/abd and Hadd. SInce last bout of PT, back has been doing pretty good overalll. No referred pain. He does still have some difficulty w/reaching LLE. Treatment Goals Patient/Caregiver Goals reach L foot easier, less pain in L shoulder w/workouts and heavy work on boat etc. PT-OP-T Assessment and Plan Start: 03/12/24 11:29 Freq: Status: Active Protocol: Document 09/08/24 08:22 [facility] (Rec: 09/08/24 13:33 [facility] [id number]) Physical Therapy Assessment Goals mobility Retirement Goal (LTG) Pt will report no difficulty w /reaching L foot in shower or donning/doff shoes 05/27-improved ability to don/ doff shoes, still some limit in shower LTG Duration achieved 07/28 strength Short Term Goal (STG) pt will be indep w/HEP STG Duration achieved advancing as able Retirement Goal (LTG) Pt will score at least 5/5 on all BLE and UE MMT and at least 3/5 LPM in all planes to show improved stability to allow greater ease in daily activities. 05/27-mostly achieved LTG Duration achieved 07/28 ROM Short Term Goal (STG) pt will have B DF to at least 4 in knee to wall position to dec tension on foot. 05/27-improved ROM signfiicantly 07/28-2 in B STG Duration 09/20 Sanitor Goal (LTG) Pt will have full L shoulder ROM w/o inc pain 05/27-mostly full execpt abd limited w/some discomfort improved after manual LTG Duration achieved 07/28 activities Short Term Goal (STG) Pt will be able to walk in any of his appropriate shoes w/o inc pain 05/27-foot feels good; some knee pain though 07/28-intermittent foot pain 09/08-has been doing walks but does not R>L foot pain STG Duration 09/20 Retirement Goal (LTG) Pt will be able to do all of exercise program w/o inc pain and do all of heavy work around house/on boat w/o inc pain 05/27-sometimes foot pain occ and occ w/shoulder but it is better 07/28-knee and occ foot issues 09/08-returnd to full exercises w/o pain; heavy work can inc pain LTG Duration 10/19 Assessment Summary Assessment Pt has made good progress w/PT but does still note L foot discomofrt w/activity but R foot has started having pain also> pt to see ortho re: this and will get more information and determine if needs to start new chart to focus on B feet. at this time, cont PT for L foot pain as it cont to limit his daily activity Physical Therapy Plan Frequency and Duration Frequency of Treatment 1x/wk Duration of treatment (weeks) 6 Plan of Care Start Date 09/08/24 Plan of Care End Date 10/20/24 Therapeutic Interventions Therapeutic Interventions Balance Training,Gait Training ,Home Exercise Program,Joint Mobilizations,Manual Therapy, Neuromuscular Re-education, Orthotic/Prosthetic Management ,Patient/Caregiver Education, Self-Care/Home Management,Soft Tissue Mobilization,Taping, Therapeutic Activities, Therapeutic Exercises Modalities Cold Pack/Ice Massage,Electric Stimulation,Hot Packs Next Visit Focus/Plan Next Note Type Treatment Note Next Visit Plan 4 more scheduled appts but update POC in 3 visits, exp . POC: cont to work on foot/ ankle mobility Plan of Care Dates Plan of Care Start Date 09/08/24 Plan of Care End Date 10/20/24 Electronically Signed by: Valentine Olivera, PT 09/08/24 0953 If you are in agreement with this Plan of Care, please return a signed and dated copy. I have reviewed this Plan of Care and certify that the skilled therapy services above are required to meet the patient?s needs. Physician Signature Date Printed Name and Credentials Clinical Instructor Signature Printed Name and Credentials
--- NOTE | 2024-09-22 13:51 | PT.OTN ---
Current Diagnoses Cutaneous abscess, unspecified (09/22/24) Pain in left upper arm (09/22/24) Pain in left foot (09/22/24) Abnormal posture (09/22/24) Other symptoms and signs involving the nervous system (09/22/24) Weakness (09/22/24) Physical Therapy Treatment Note PT-OP-A Visit Information Start: 03/12/24 11:29 Freq: Status: Active Protocol: Document 09/22/24 08:23 [facility] (Rec: 09/22/24 13:51 [facility] [id number]) Out-Patient Physical Therapy Visit Information Visit Information Visit Type Treatment Note Visit Note 04/10 Visit Start Time 08:19 Visit Stop Time 08:59 Visit Number 18 Number of MICROBIOLOGY LABORATORY MANAGER Visits 0 PT-OP-B Current Condition Start: 03/12/24 11:29 Freq: Status: Active Protocol: Document 03/24/24 07:34 [facility] (Rec: 03/24/24 09:04 [facility] [id number]) Current Condition History of Current Condition Current Complaints L foot pain, L shoulder pain, LBP History of Current Condition Pt reports L foot was really a problem for a couple months but is better. Unsure what started the foot pain. Foot pain was on plantar and dorsal surface sometimes. He uses superfeet. Pain was around base of 1st [place]. Reports some toe walking as a kid. He put new superfeet in his shoes and that helped. [place] really hurt the next day and had pain w/walks. He has one pair of shoes that are more comfortable. He has L shoulder pain that is also a little better. He does have some lat shoulder pain that has been chronic. He does his band exercises and does notice it some w/abd and Hadd. SInce last bout of PT, back has been doing pretty good overalll. No referred pain. He does still have some difficulty w/reaching LLE. Treatment Goals Patient/Caregiver Goals reach L foot easier, less pain in L shoulder w/workouts and heavy work on boat etc. PT-OP-C Subjective Start: 03/12/24 11:29 Freq: Status: Active Protocol: Document 09/22/24 08:23 [facility] (Rec: 09/22/24 13:51 [facility] [id number]) OP-PT Subjective Patient Comments Patient Comments Saw nurses director who said OA in both feet and will get shot in R foot at end of month. He is changing his insoles around shoes. His doctors told him that he may have to take ibuprofen 2x/month for 5 days in a row as needed. DId a bout of ibuprofen last week and it helped. PT-OP-J Posture/Palpation/Skin Start: 03/12/24 11:29 Freq: Status: Active Protocol: Document 07/28/24 08:15 [facility] (Rec: 07/28/24 09:05 [facility] [id number]) Posture Evaluation [facility] Postural Classification System Elbow Flexion Test 5 Lumbar Protective Mechanism Left AP 3 Lumbar Protective Mechanism Right AP 3 Lumbar Protective Mechanism Left PA 3 Lumbar Protective Mechanism Right PA 3 PT-OP-K Range of Motion Start: 03/12/24 11:29 Freq: Status: Active Protocol: Document 09/08/24 08:22 [facility] (Rec: 09/08/24 13:33 [facility] [id number]) Ankle and Foot Goniometric Range of Motion Ankle and Foot Right Active Dorsiflexion with Knee Flexed 2 Dorsiflexion with Knee Extended 1 Left Active Dorsiflexion with Knee Flexed 3 Dorsiflexion with Knee Extended 0 PT-OP-L Special Tests Start: 03/12/24 11:29 Freq: Status: Active Protocol: Document 03/24/24 07:34 [facility] (Rec: 03/24/24 09:04 [facility] [id number]) Special Tests Lumbar Spine Special Tests Slump Test Results slight more Hs tension Shoulder Special Tests Durant Dimas Impingement Test Results positive L Neer Impingement Test Results minor pain at end range [place] Test Test Results neg L Speed's Biceps Test Results positive L Yergason's Biceps Test Results neg Empty Can Test Results positve Drop Arm Rotator Cuff Test Results neg Sulcus Test Results neg AC Joint Compression Test Results neg Neural Special Tests- Upper Body Median Nerve Tension Test Results neg L Radial Nerve Tension Test Results positive L Ulnar Nerve Tension Test Results neg L PT-OP-M Strength Start: 03/12/24 11:29 Freq: Status: Active Protocol: Document 07/28/24 08:15 [facility] (Rec: 07/28/24 09:05 [facility] [id number]) Shoulder Strength Shoulder Manual Muscle Testing Left Flexion 5 Normal Extension 5 Normal Abduction (C5) 5 Normal External Rotation 5 Normal Internal Rotation 5 Normal Horizontal Abduction 5 Normal Horizontal Adduction 5 Normal Hip Strength Hip Manual Muscle Testing Right Flexion (L2) 5 Normal Extension (S1) 5 Normal Abduction 5 Normal Adduction 5 Normal External Rotation 5 Normal Internal Rotation 5 Normal Left Flexion (L2) 5 Normal Extension (S1) 5 Normal Abduction 5 Normal Adduction 5 Normal External Rotation 5 Normal Internal Rotation 5 Normal Knee Strength Knee Manual Muscle Testing Right Flexion (S2) 5 Normal Extension (L3) 5 Normal Left Flexion (S2) 5 Normal Extension (L3) 5 Normal Ankle/Foot Strength Ankle and Foot Manual Muscle Testing Right Dorsiflexion (L4) 5 Normal Plantarflexion (S1) 5 Normal Inversion 5 Normal Eversion (S1) 5 Normal Comments B toe flex/ext toes 1-5: 5/5; 20 heel raises B with pain 1st MTP Left Dorsiflexion (L4) 5 Normal Plantarflexion (S1) 5 Normal Inversion 5 Normal Eversion (S1) 5 Normal PT-OP-Q Treatments Start: 03/12/24 11:29 Freq: Status: Active Protocol: Document 09/22/24 08:23 [facility] (Rec: 09/22/24 13:51 [facility] [id number]) Therapeutic Exercises Sitting Exercises stretch Sitting Exercise Name 1. plantar fascia 2. big toe ext 3. abd big toe w/circls Side left Reps/Minutes 1&2:30 sec ea [address]. [address] circles ROM Sitting Exercise Name 1. big toe lifts 2. little to lifts Side left Reps/Minutes 10 ea Manual Therapy Treatment Consent Patient gave verbal consent for manual Yes treatment Soft Tissue Mobilization calf Body Location L calf and achilles Mobilization Type Rolling Intensity/Depth Moderate Body Position Supine plantar fascia Body Location L Mobilization Type Rolling,Sustained Pressure, Other Intensity/Depth Moderate Comments w/gentle big toe ext Joint Mobilizations MTP Comments distraction and AP glide L big toe midfoot Comments cuboid lat glide rearfoot Comments calcaneal distraction L; L talus med glide Self-Care/Home Management Treatment Education Other Education 8 min: discussed alternates to lunges like lat lunge or elevated foot lunge. pt encouraged to discuss w/MD re: referral for both feet if wants to focus on R foot also. PT-OP-T Assessment and Plan Start: 03/12/24 11:29 Freq: Status: Active Protocol: Document 09/22/24 08:23 [facility] (Rec: 09/22/24 13:51 [facility] [id number]) Physical Therapy Assessment Goals mobility Net Making Supervisor Goal (LTG) Pt will report no difficulty w /reaching L foot in shower or donning/doff shoes 05/27-improved ability to don/ doff shoes, still some limit in shower LTG Duration achieved 07/28 strength Short Term Goal (STG) pt will be indep w/HEP STG Duration achieved advancing as able Shelter Goal (LTG) Pt will score at least 5/5 on all BLE and UE MMT and at least 3/5 LPM in all planes to show improved stability to allow greater ease in daily activities. 05/27-mostly achieved LTG Duration achieved 07/28 ROM Short Term Goal (STG) pt will have B DF to at least 4 in knee to wall position to dec tension on foot. 05/27-improved ROM signfiicantly 07/28-2 in B STG Duration 09/20 Net Making Supervisor Goal (LTG) Pt will have full L shoulder ROM w/o inc pain 05/27-mostly full execpt abd limited w/some discomfort improved after manual LTG Duration achieved 07/28 activities Short Term Goal (STG) Pt will be able to walk in any of his appropriate shoes w/o inc pain 05/27-foot feels good; some knee pain though 07/28-intermittent foot pain 09/08-has been doing walks but does not R>L foot pain STG Duration 09/20 Shelter Goal (LTG) Pt will be able to do all of exercise program w/o inc pain and do all of heavy work around house/on boat w/o inc pain 05/27-sometimes foot pain occ and occ w/shoulder but it is better 07/28-knee and occ foot issues 09/08-returnd to full exercises w/o pain; heavy work can inc pain LTG Duration 10/19 Assessment Summary Assessment Pt did well with exercises w/o inc pain and was given handout. Pt had improved DF and eversion along w/big toe mobility after manual care Physical Therapy Plan Frequency and Duration Frequency of Treatment 1x/wk Duration of treatment (weeks) 6 Plan of Care Start Date 09/08/24 Plan of Care End Date 10/20/24 Therapeutic Interventions Therapeutic Interventions Balance Training,Gait Training ,Home Exercise Program,Joint Mobilizations,Manual Therapy, Neuromuscular Re-education, Orthotic/Prosthetic Management ,Patient/Caregiver Education, Self-Care/Home Management,Soft Tissue Mobilization,Taping, Therapeutic Activities, Therapeutic Exercises Modalities Cold Pack/Ice Massage,Electric Stimulation,Hot Packs Next Visit Focus/Plan Next Note Type Treatment Note Next Visit Plan review foot exercises
--- NOTE | 2024-10-19 12:31 | PT.OTN ---
Current Diagnoses Cutaneous abscess, unspecified (10/19/24) Pain in left upper arm (10/19/24) Pain in left foot (10/19/24) Abnormal posture (10/19/24) Other symptoms and signs involving the nervous system (10/19/24) Weakness (10/19/24) Physical Therapy Treatment Note PT-OP-A Visit Information Start: 03/12/24 11:29 Freq: Status: Active Protocol: Document 10/19/24 12:27 [facility] (Rec: 10/21/24 12:31 [facility] [id number]) Out-Patient Physical Therapy Visit Information Visit Information Visit Type Discharge Summary Visit Start Time 09:03 Visit Stop Time 09:43 Visit Number 19 Number of [employer]AND[employer] Visits 0 PT-OP-B Current Condition Start: 03/12/24 11:29 Freq: Status: Active Protocol: Document 03/24/24 07:34 [facility] (Rec: 03/24/24 09:04 [facility] [id number]) Current Condition History of Current Condition Current Complaints L foot pain, L shoulder pain, LBP History of Current Condition Pt reports L foot was really a problem for a couple months but is better. Unsure what started the foot pain. Foot pain was on plantar and dorsal surface sometimes. He uses superfeet. Pain was around base of 1st MT. Reports some toe walking as a kid. He put new superfeet in his shoes and that helped. [place] really [place] the [place] day and had pain w/walks. He has one pair of shoes that are more comfortable. He has L shoulder pain that is also a little better. He does have some lat shoulder pain that has been chronic. He does his band exercises and does notice it some w/abd and Hadd. SInce last bout of PT, back has been doing pretty good overalll. No referred pain. He does still have some difficulty w/reaching LLE. Treatment Goals Patient/Caregiver Goals reach L foot easier, less pain in L shoulder w/workouts and heavy work on boat etc. PT-OP-C Subjective Start: 03/12/24 11:29 Freq: Status: Active Protocol: Document 10/19/24 12:27 [facility] (Rec: 10/21/24 12:31 [facility] [id number]) OP-PT Subjective Patient Comments Patient Comments pt reports R foot better after 2 injections. L foot feeling a bit better too and more intermittent PT-OP-J Posture/Palpation/Skin Start: 03/12/24 11:29 Freq: Status: Active Protocol: Document 07/28/24 08:15 [facility] (Rec: 07/28/24 09:05 [facility] [id number]) Posture Evaluation [facility] Postural Classification System Elbow Flexion Test 5 Lumbar Protective Mechanism Left AP 3 Lumbar Protective Mechanism Right AP 3 Lumbar Protective Mechanism Left PA 3 Lumbar Protective Mechanism Right PA 3 PT-OP-K Range of Motion Start: 03/12/24 11:29 Freq: Status: Active Protocol: Document 09/08/24 08:22 [facility] (Rec: 09/08/24 13:33 [facility] [id number]) Ankle and Foot Goniometric Range of Motion Ankle and Foot Right Active Dorsiflexion with Knee Flexed 2 Dorsiflexion with Knee Extended 1 Left Active Dorsiflexion with Knee Flexed 3 Dorsiflexion with Knee Extended 0 PT-OP-L Special Tests Start: 03/12/24 11:29 Freq: Status: Active Protocol: Document 03/24/24 07:34 [facility] (Rec: 03/24/24 09:04 [facility] [id number]) Special Tests Lumbar Spine Special Tests Slump Test Results slight more Hs tension Shoulder Special Tests Durant Dimas Impingement Test Results positive L Neer Impingement Test Results minor pain at end range [place] Test Test Results neg L Speed's Biceps Test Results positive L Yergason's Biceps Test Results neg Empty Can Test Results positve Drop Arm Rotator Cuff Test Results neg Sulcus Test Results neg AC Joint Compression Test Results neg Neural Special Tests- Upper Body Median Nerve Tension Test Results neg L Radial Nerve Tension Test Results positive L Ulnar Nerve Tension Test Results neg L PT-OP-M Strength Start: 03/12/24 11:29 Freq: Status: Active Protocol: Document 07/28/24 08:15 [facility] (Rec: 07/28/24 09:05 [facility] [id number]) Shoulder Strength Shoulder Manual Muscle Testing Left Flexion 5 Normal Extension 5 Normal Abduction (C5) 5 Normal External Rotation 5 Normal Internal Rotation 5 Normal Horizontal Abduction 5 Normal Horizontal Adduction 5 Normal Hip Strength Hip Manual Muscle Testing Right Flexion (L2) 5 Normal Extension (S1) 5 Normal Abduction 5 Normal Adduction 5 Normal External Rotation 5 Normal Internal Rotation 5 Normal Left Flexion (L2) 5 Normal Extension (S1) 5 Normal Abduction 5 Normal Adduction 5 Normal External Rotation 5 Normal Internal Rotation 5 Normal Knee Strength Knee Manual Muscle Testing Right Flexion (S2) 5 Normal Extension (L3) 5 Normal Left Flexion (S2) 5 Normal Extension (L3) 5 Normal Ankle/Foot Strength Ankle and Foot Manual Muscle Testing Right Dorsiflexion (L4) 5 Normal Plantarflexion (S1) 5 Normal Inversion 5 Normal Eversion (S1) 5 Normal Comments B toe flex/ext toes 1-5: 5/5; 20 heel raises B with pain 1st MTP Left Dorsiflexion (L4) 5 Normal Plantarflexion (S1) 5 Normal Inversion 5 Normal Eversion (S1) 5 Normal PT-OP-Q Treatments Start: 03/12/24 11:29 Freq: Status: Active Protocol: Document 10/19/24 12:27 [facility] (Rec: 10/21/24 12:31 [facility] [id number]) Therapeutic Exercises Sitting Exercises stretch Sitting Exercise Name 1. plantar fascia 2. big toe ext 3. abd big toe w/circls Side left Reps/Minutes review for hEP ROM Sitting Exercise Name 1. big toe lifts 2. little to lifts Side left Reps/Minutes 10 ea Manual Therapy Treatment Consent Patient gave verbal consent for manual Yes treatment Soft Tissue Mobilization calf Body Location L calf and achilles Mobilization Type Rolling Intensity/Depth Moderate Body Position Supine Comments w/APs Joint Mobilizations rearfoot Comments L calcaneus distraction Self-Care/Home Management Treatment Education Other Education 15 min: edu to cont ROM and stretching for calf and roll out of both calf and plantar fascia and cont exercises for toes even though tehy are difficult for him to perofrm PT-OP-T Assessment and Plan Start: 03/12/24 11:29 Freq: Status: Active Protocol: Document 10/19/24 12:27 [facility] (Rec: 10/21/24 12:31 [facility] [id number]) Physical Therapy Assessment Goals mobility Usp Goal (LTG) Pt will report no difficulty w /reaching L foot in shower or donning/doff shoes 05/27-improved ability to don/ doff shoes, still some limit in shower LTG Duration achieved 07/28 strength Short Term Goal (STG) pt will be indep w/HEP STG Duration achieved advancing as able Usp Goal (LTG) Pt will score at least 5/5 on all BLE and UE MMT and at least 3/5 LPM in all planes to show improved stability to allow greater ease in daily activities. 05/27-mostly achieved LTG Duration achieved 07/28 ROM Short Term Goal (STG) pt will have B DF to at least 4 in knee to wall position to dec tension on foot. 05/27-improved ROM signfiicantly 07/28-2 in B 10/21-3.25 L, 2 in R STG Duration 09/20 Usp Goal (LTG) Pt will have full L shoulder ROM w/o inc pain 05/27-mostly full execpt abd limited w/some discomfort improved after manual LTG Duration achieved 07/28 activities Short Term Goal (STG) Pt will be able to walk in any of his appropriate shoes w/o inc pain 05/27-foot feels good; some knee pain though 07/28-intermittent foot pain 09/08-has been doing walks but does not R>L foot pain STG Duration achieved since injections [employer] Goal (LTG) Pt will be able to do all of exercise program w/o inc pain and do all of heavy work around house/on boat w/o inc pain 05/27-sometimes foot pain occ and occ w/shoulder but it is better 07/28-knee and occ foot issues 09/08-returnd to full exercises w/o pain; heavy work can inc pain LTG Duration acheived 10/19 Assessment Summary Assessment Pt has met most goals and is DC at this time d/t met goals for LBP, L shoulder pain and foot pain and pt indep w/HEP. DC to HEP at this time. Physical Therapy Plan Discharge Physical Therapy Discharge Reasons Goals Met Discharge Comments most goals met
== END 2024-10-23 10:23 | disposition home or self-care (01) ==
LOC: PHYS 09:00
PROVIDERS: Family Provider Family Medicine; PCP Family Medicine; Referring Provider Family Medicine; Visit Provider Family Medicine
DX: M79.672 Pain in left foot (principal); R29.818 Other symptoms and signs involving the nervous system; M79.622 Pain in left upper arm; L02.91 Cutaneous abscess, unspecified; R53.1 Weakness; R29.3 Abnormal posture
CPT/HCPCS: 97110; 97112; 97140; 97162; 97535

== ENCOUNTER → 2025-01-21 08:19 | Outpatient (CLI) | payer MEDICARE, OTHER, SELFPAY ==
[2025-01-21 09:19] LABS: Alanine Aminotransferase 36 IU/L (<50); Albumin 4.5 g/dL (3.5-5.0); Albumin Globulin Ratio 1.4 (1.0-2.8); Alkaline Phosphatase 84 U/L (38-126); Aspartate Aminotransferase 38 IU/L (17-59); Bilirubin Total 0.7 mg/dL (0.2-1.3); Blood Urea Nitrogen 15 mg/dL (9-20); Calcium 9.2 mg/dL (8.4-10.2); Carbon Dioxide 25 mmol/L (22-32); Chloride 101 mmol/L (98-107); Cholesterol 143 mg/dL (140-199); Estimated Glomerular Filt Rate > 60 mL/min (>60); Globulin 3.3 g/dL (1.7-4.1); Glucose 105 mg/dL (80-110); HDL Cholesterol 53 mg/dL (40-60); HEMOLYSIS < 15 (0-50); LDL Cholesterol Calculated 70 mg/dL (<100); Potassium 4.6 mmol/L (3.4-5.1); Sodium 135 mmol/L (137-145); Total Protein 7.8 g/dL (6.3-8.2); Triglycerides 102 mg/dL (35-150)
== END ==
PROVIDERS: Family Provider Family Medicine; PCP Family Medicine; Referring Provider Family Medicine; Visit Provider Family Medicine
DX: E78.2 Mixed hyperlipidemia (principal); I10 Essential (primary) hypertension; M25.50 Pain in unspecified joint; T50.Z95A Adverse effect of other vaccines and biological substances, initial encounter
CPT/HCPCS: 36415; 80053; 80061; 84550